=== PATIENT | female | born 1985 | race Caucasian/White ===

== ENCOUNTER → 2019-09-09 12:31 | Outpatient (CLI) | payer MEDICAID, SELFPAY ==
--- NOTE | 2019-09-09 12:35 | US_ITS ---
STUDY: SECOND AND THIRD TRIMESTER OBSTETRICAL ULTRASOUND REASON FOR EXAM: Female, 34 years old ANATOMY LMP: April 22, 2019. TECHNIQUE: Transabdominal TECHNICAL QUALITY: Adequate. PRIOR ULTRASOUND: None. FINDINGS: There is a single intrauterine fetus. The fetus is in a breech presentation. There is demonstrated cardiac activity with a heart rate of 152 bpm. There is a normal amniotic fluid volume. The largest amniotic fluid pocket measures 3.9 cm x 7.9 cm. The amniotic fluid index (TOM) is normal. The placenta is anterior in location and is not low lying. There are Grade 1 placental changes. The cervix measures 5.5 cm in length. The adnexal regions are not visualized. BIOMETRY: BPD: 4.58 cm: 19 weeks, 5 days HC: 17.42 cm: 19 weeks, 6 days AC: 14.88 cm: 20 weeks, 0 days FL: 3.23 cm: 20 weeks, 0 days CI: 74.8% FL/BPD: 70.5% FL/HC: FL/AC: 21.7% HC/AC: 1.17 age by current US: 20 weeks, 0 days. JOCELYNN by current US: January 27, 2020. Estimated weight: 331 grams, +/- 49 grams, 57.5 %. Age by LMP: 20 weeks, 0 days. JOCELYNN by LMP: January 27, 2020. ANATOMY: Gender: Male Cranium: Normal lateral ventricles. Normal choroid plexus. Normal cerebellum. Normal cisterna magna. Normal face, nose and lips. Chest: Normal 4-chamber heart. Abdomen/Pelvis: Normal diaphragm. Normal stomach. Normal abdominal wall. Normal cord insertion. Normal 3 vessel cord. Normal kidneys. Normal bladder. Spine: Normal cervical spine. Normal thoracic spine. Normal lumbar spine. Normal sacrum. Extremities: Normal bilateral upper extremities. Normal bilateral lower extremities. US/OB Anatomy Scan IMPRESSION: A single live intrauterine gestation with a mean gestational age of 20 weeks. Electronically Signed: Alli Parham, at 14:47 EDT , Service support ,
== END ==
PROVIDERS: Referring Provider Obstetrics & Gynecology; Visit Provider Obstetrics & Gynecology
DX: Z34.90 Encounter for supervision of normal pregnancy, unspecified, unspecified trimester (principal)
CPT/HCPCS: 76805

== ENCOUNTER → 2019-09-11 12:58 | Outpatient (CLI) | payer MEDICAID, SELFPAY ==
[2019-09-11 11:59] VITALS: BMI 25.5
== END ==
PROVIDERS: Referring Provider Obstetrics & Gynecology; Visit Provider Obstetrics & Gynecology
DX: O09.522 Supervision of elderly multigravida, second trimester (principal); Z3A.00 Weeks of gestation of pregnancy not specified
CPT/HCPCS: 36415

== ENCOUNTER → 2019-11-03 09:54 | Outpatient (CLI) | payer MEDICAID, SELFPAY ==
[2019-11-03 09:28] VITALS: BMI 25.5
[2019-11-03 10:41] LABS: Absolute Lymphocyte Count 3.08 X10^3/uL (0.83-4.51); Absolute Neutrophil Count 7.2 X10^3/uL (2.0-7.7); Basophil# 0.02 X10^3/uL; Basophil% 0.2 % (0-1); Eosinophil# 0.13 X10^3/uL; Eosinophils% 1.2 % (0-5); Hematocrit 35.6 % (37-47); Hemoglobin 11.6 g/dL (12.0-15.0); Lymphocyte # 3.08 X10^3/ul (4.0); Lymphocyte % 27.7 % (19-41); Mean Corp Hgb Conc 32.6 g/dL (32-36); Mean Corpuscular Hgb 31.1 pg (27.0-32.0); Mean Corpuscular Volume 95.4 fL (81-99); Mean Platelet Vol. 11.7 fl (6.2-12.0); Monocyte# 0.64 X10^3/uL; Monocyte% 5.8 % (0-10); NRBC Flagged by Analyzer 0 % (0-5); Neutrophil # 7.19 X10^3/uL (2.7-7.7); Neutrophil % 64.5 % (47-70); Platelet Count 181 K/mm3 (150-450); RBC Distribution Width SD 45.2 fl (35.1-43.9); Red Blood Count 3.73 M/mm3 (4.2-5.4); White Blood Count 11.1 K/mm3 (4.4-11.0)
[2019-11-03 11:34] LABS: Glucose Challenge Gest 1H 50g 119 mg/dL (70-140)
[2019-11-03 16:44] LABS: Chlamydia Trachomatis by PCR Negative (Negative); Neisserai gonorrhoeae by PCR Negative (Negative); Probe Check PASS; Sample Adequacy Control PASS; Specimen Processing Control PASS
[2019-11-06 02:24] LABS: Rapid Plasmin Reagin (RPR) NONREACTIVE (NONREACTIVE)
== END ==
PROVIDERS: Referring Provider Obstetrics & Gynecology; Visit Provider Obstetrics & Gynecology
DX: O09.529 Supervision of elderly multigravida, unspecified trimester (principal); Z11.3 Encounter for screening for infections with a predominantly sexual mode of transmission; Z86.79 Personal history of other diseases of the circulatory system; Z3A.00 Weeks of gestation of pregnancy not specified
CPT/HCPCS: 36415; 82950; 85025; 86592; 87491; 87591

== ENCOUNTER → 2020-01-02 10:29 | Outpatient (CLI) | payer MEDICAID, SELFPAY ==
[2019-12-26 09:21] VITALS: BMI 25.5
[2020-01-02 09:35] VITALS: BMI 25.5
--- NOTE | 2020-01-02 10:30 | US_ITS ---
STUDY: SECOND AND THIRD TRIMESTER OBSTETRICAL ULTRASOUND REASON FOR EXAM: Female, 34 years old GROWTH LMP: 04/22/2019. TECHNIQUE: Transabdominal TECHNICAL QUALITY: Adequate. PRIOR ULTRASOUND: Comparison is made with prior study dated 09/09/2019. FINDINGS: There is a single intrauterine fetus. The fetus is in a cephalic presentation. There is demonstrated cardiac activity with a heart rate of 129 bpm. There is a normal amniotic fluid volume. The largest amniotic fluid pocket measures 5.1 cm. The amniotic fluid index (TOM) is 12.0 cm. The placenta is anterior in location and is not low lying. There are Grade 1 placental changes. The cervix measures 3.6 cm in length. The adnexal regions are not visualized. BIOMETRY: BPD: 9.1 cm: 37 weeks, 0 days HC: 33.4 cm: 38 weeks, 2 days AC: 33.1 cm: 37 weeks, 1 days FL: 7.02 cm: 37 weeks, 4 days CI: 81% FL/BPD: 77% FL/HC: FL/AC: 21% HC/AC: 1.01 age by current US: 37 weeks, 1 days. JOCELYNN by current US: 01/22/2020. Estimated weight: 3053 grams, +/- 446 grams, 66 %. age by prior US: 36 weeks, 3 days. JOCELYNN by prior US: 01/27/2020. Age by LMP: 36 weeks, 3 days. JOCELYNN by LMP: 01/27/2020. US/OB Limited With Biometrics IMPRESSION: Single live intrauterine gestation with a mean gestational age of 36 weeks and 3 days. The measurements obtained today fall within the normal expected range. Electronically Signed: Alli Parham, at 12:26 EDT , Service support ,
== END ==
PROVIDERS: Referring Provider Obstetrics & Gynecology; Visit Provider Obstetrics & Gynecology
DX: O09.90 Supervision of high risk pregnancy, unspecified, unspecified trimester (principal); O09.529 Supervision of elderly multigravida, unspecified trimester; Z3A.36 36 weeks gestation of pregnancy
CPT/HCPCS: 76816; 87081

== ENCOUNTER 2020-01-11 13:05 | Outpatient (CLI) | payer MEDICAID, SELFPAY ==
[2020-01-09 10:17] VITALS: BMI 25.5
[2020-01-11 13:19] VITALS: BP 119/65; PULSE 88; TEMP 36.8; O2SAT 99
[2020-01-11 13:34] VITALS: BMI 30.7
--- NOTE | 2020-01-11 13:34 | RAD_ITS ---
STUDY: X-RAY CHEST REASON FOR EXAM: Female, 34 years old. SHORT OF BREATH, PRE ECLAMPSIA TECHNIQUE: PA and lateral views of the chest. COMPARISON: None. FINDINGS: The lungs are clear and expanded. There is no demonstrated pleural abnormality. Normal size heart. Normal mediastinum and kia. Normal visualized pulmonary arteries. Normal visualized aortic arch and descending thoracic aorta. Normal visualized thoracic spine. Normal visualized ribs, clavicles, and shoulders. There is no demonstrated abnormality of the visualized soft tissue structures of the upper abdomen. RAD/Chest PA and Lateral IMPRESSION: Normal x-ray examination of the chest. Electronically Signed: Ruddy Simon MD ([place]) at 14:32 EDT , Service support ,
[2020-01-11 13:45] VITALS: BP 108/72; PULSE 86
[2020-01-11 13:55] VITALS: BP 100/63; PULSE 83
[2020-01-11 14:02] LABS: Hematocrit 35.9 % (37-47); Hemoglobin 11.8 g/dL (12.0-15.0); Mean Corp Hgb Conc 32.9 g/dL (32-36); Mean Corpuscular Hgb 31.3 pg (27.0-32.0); Mean Corpuscular Volume 95.2 fL (81-99); Mean Platelet Vol. 12.2 fl (6.2-12.0); Platelet Count 169 K/mm3 (150-450); RBC Distribution Width CV 13.3 % (11.6-14.6); RBC Distribution Width SD 45.5 fl (35.1-43.9); Red Blood Count 3.77 M/mm3 (4.2-5.4); White Blood Count 12.4 K/mm3 (4.4-11.0)
[2020-01-11 14:10] LABS: Prothrombin Time (Protime)PT. 12.4 SECONDS (11.7-14.9)
[2020-01-11 14:11] LABS: Partial Thromboplast Time 26.3 Seconds (24.1-36.2)
[2020-01-11 14:17] LABS: BNP,B-Type NATRIURETIC PEPTIDE 52.3 pg/mL (0-100)
[2020-01-11 14:18] LABS: AST(SGOT) 13 U/L (15-37); Alanine Aminotransfer ALT/SGPT 13 U/L (13-56); Creatinine, Serum 0.74 mg/dL (0.55-1.02); EST Glomerular Filtration Rate 94 mL/min (>60); Est Glom Filt Rate - Afr Amer 114 mL/min (>60); Estimated Creatinine Clearance 91.63 ml/min; Uric Acid 4.4 mg/dL (2.6-6.0)
[2020-01-11 14:19] LABS: ALB/GLOB Ratio 0.8 RATIO (0.9-2.4); AST(SGOT) 14 U/L (15-37); Alanine Aminotransfer ALT/SGPT 12 U/L (13-56); Albumin, Serum 2.8 g/dL (3.2-5.0); Alkaline Phosphatase 121 U/L (45-117); Anion Gap 4 (5-15); BUN 10 mg/dL (7-18); BUN/Creat Ratio 13.8 RATIO (10-20); Calcium,Total 8.8 mg/dL (8.5-10.1); Chloride 108 mmol/L (98-107); Creatinine, Serum 0.72 mg/dL (0.55-1.02); EST Glomerular Filtration Rate 97 mL/min (>60); Est Glom Filt Rate - Afr Amer 117 mL/min (>60); Estimated Creatinine Clearance 94.17 ml/min; Globulin 3.6 g/dL (2.2-4.2); Glucose 95 mg/dL (74-106); LDH 153 U/L (84-246); Protein, Total 6.4 g/dL (6.4-8.2); Sodium Level 139 mmol/L (136-145)
[2020-01-11 14:21] LABS: Creatinine, Urine (random) < 13.00 mg/dL (NO RANGE EST.); Protein, Urine (Random) < 6.0 mg/dL (<11.9)
[2020-01-11 14:32] VITALS: BP 110/71; PULSE 81
--- NOTE | 2020-01-11 14:33 | OB.TRI.HP_ITS ---
- Problem List (1) Shortness of breath during Status: Acute (2) History of congestive heart failure in adulthood Status: Acute Comment: around first delivery, questionable. s/p cardio consult and MFM consult. undiagnosed preeclampsia and then went into congestive heart failure after delivery 06/21/08 History of Present Illness Reason For Visit: RULE OUT LABOR Date of Service: 01/11/20 Final JOCELYNN: 01/27/20 Final JOCELYNN Source: LMP Gestational age: 37 Weeks and 5 Days History of Present Illness: 34yo at 37 weeks who presents for elevated BP at home, shortness of breath, and tachycardia. She has a history of HFrEF due to preeclampsia in her first . No complications with her last or thus far this . Reports that for the last 24 hours, she has noticed shortness of breath and tachycardia upon awakening. Also reports mild headache and occasionally seeing s pots in her vision. She feels like this is somewhat similar to how she felt in her first . No shortness of breath, lightheadedness, blurred vision, chest pain, RUQ/epigastric pain currently. Endorses very mild headache that she reports is not so severe that she would take medications. Allergies No Known Allergies Allergy (Verified 01/09/20 10:16) - Pertinent Past Medical History Medical History: Past Medical History (Last Reviewed 01/09/20 @ 10:16 by Kesha Montgomery) Epilepsy Surgical History: Past Surgical History (Last Reviewed 01/09/20 @ 10:16 by Kesha Montgomery) delivery delivered History of tonsillectomy Laboratory Studies: Laboratory Tests 01/11/20 01/11/20 01/11/20 Range/Units 14:00 13:45 13:45 WBC (4.4-11.0) K/mm3 RBC (4.2-5.4) M/mm3 Hgb (12.0-15.0) g/dL Hct (37-47) % MCV (81-99) fL MCH (27.0-32.0) pg MCHC (32-36) g/dL RDW Std Deviation (35.1-43.9) fl RDW Coeff of Camilo (11.6-14.6) % Plt Count (150-450) K/mm3 MPV (6.2-12.0) fl PT (11.7-14.9) SECONDS INR APTT (24.1-36.2) Seconds Sodium 139 (136-145) mmol/L Potassium 4.0 (3.5-5.1) mmol/L Chloride 108 H (98-107) mmol/L Carbon Dioxide 27.0 (21.0-32.0) mmol/L Anion Gap 4 L (5-15) BUN 10 (7-18) mg/dL Creatinine 0.72 (0.55-1.02) mg/dL Estim Creat Clear Calc 94.17 ml/min Est GFR (MDRD) Af Amer 117 (>60) mL/min Est GFR (MDRD) Non-Af 97 (>60) mL/min BUN/Creatinine Ratio 13.8 (10-20) RATIO Glucose 95 (74-106) mg/dL Uric Acid (2.6-6.0) mg/dL Calcium 8.8 (8.5-10.1) mg/dL Total Bilirubin 0.40 (0.20-1.00) mg/dL AST 14 L (15-37) U/L ALT 12 L (13-56) U/L Alkaline Phosphatase 121 H (45-117) U/L Lactate Dehydrogenase 153 (84-246) U/L B-Natriuretic Peptide 52.3 (0-100) pg/mL Total Protein 6.4 (6.4-8.2) g/dL Albumin 2.8 L (3.2-5.0) g/dL Globulin 3.6 (2.2-4.2) g/dL Albumin/Globulin Ratio 0.8 L (0.9-2.4) RATIO U Random Total Protein < 6.0 (<11.9) mg/dL Urine Creatinine < 13.00 (NO RANGE EST.) mg/dL Protein/Creatinin Ratio TNP 01/11/20 01/11/20 01/11/20 Range/Units 13:45 13:45 13:45 WBC 12.4 H (4.4-11.0) K/mm3 RBC 3.77 L (4.2-5.4) M/mm3 Hgb 11.8 L (12.0-15.0) g/dL Hct 35.9 L (37-47) % MCV 95.2 (81-99) fL MCH 31.3 (27.0-32.0) pg MCHC 32.9 (32-36) g/dL RDW Std Deviation 45.5 H (35.1-43.9) fl RDW Coeff of Camilo 13.3 (11.6-14.6) % Plt Count 169 (150-450) K/mm3 MPV 12.2 H (6.2-12.0) fl PT 12.4 (11.7-14.9) SECONDS INR 1.0 APTT 26.3 (24.1-36.2) Seconds Sodium (136-145) mmol/L Potassium (3.5-5.1) mmol/L Chloride (98-107) mmol/L Carbon Dioxide (21.0-32.0) mmol/L Anion Gap (5-15) BUN (7-18) mg/dL Creatinine 0.74 (0.55-1.02) mg/dL Estim Creat Clear Calc 91.63 ml/min Est GFR (MDRD) Af Amer 114 (>60) mL/min Est GFR (MDRD) Non-Af 94 (>60) mL/min BUN/Creatinine Ratio (10-20) RATIO Glucose (74-106) mg/dL Uric Acid 4.4 (2.6-6.0) mg/dL Calcium (8.5-10.1) mg/dL Total Bilirubin (0.20-1.00) mg/dL AST 13 L (15-37) U/L ALT 13 (13-56) U/L Alkaline Phosphatase (45-117) U/L Lactate Dehydrogenase (84-246) U/L B-Natriuretic Peptide (0-100) pg/mL Total Protein (6.4-8.2) g/dL Albumin (3.2-5.0) g/dL Globulin (2.2-4.2) g/dL Albumin/Globulin Ratio (0.9-2.4) RATIO U Random Total Protein (<11.9) mg/dL Urine Creatinine (NO RANGE EST.) mg/dL Protein/Creatinin Ratio Review of Systems Constitutional: Denies: Fever, Weight Change Eyes: Denies: Blurred vision Cardiovascular: Reports: Palpitations. Denies: Chest Pain, Chest Pressure, Edema Respiratory: Denies: Pleuritic Pain, Shortness of Breath Gastrointestinal: Denies: Abdominal Pain, Nausea, Vomiting Gynecological: Denies: Vaginal bleeding, Vaginal discharge Neurological: Reports: Headaches. Denies: Blurred vision Physical Exam Vitals: Vital Signs Temp Pulse BP Pulse Ox 98.3 F 81 110/71 99 01/11/20 13:19 01/11/20 14:32 01/11/20 14:32 01/11/20 13:19 General: Alert, Oriented x3, Cooperative, No apparent distress, Well developed, Well nourished HEENT: Atraumatic, PERRLA, EOMI, Normocephalic Cardiovascular: Regular rate, Regular Rhythm, Normal S1, Normal S2 Lungs: Clear to auscultation, Normal air movement, No rhonchi, No wheeze, No rales Abdomen: Soft, Non Tender, Gravid, Appropriate for Gestational Age Neurological: Cranial nerves II-XII grossly intact, Deep Tendon Reflexes 2+/4 and Symmetrical - no clonus, Neuro grossly intact Estimated gestational size: Appropriate for gestational size NST - FHR Rate Baby A Baseline: 150 Variability:: Moderate Accelerations:: 15 x 15 Decelerations:: None NST Reactive:: Yes FHR Category:: Category I Uterine Activity:: none Impression/Plan 34yo at 37 weeks presenting with shortness of breath, heart palpitations, and headaches 1. Shortness of breath/Elevated BPs - Patient with hx CHF and PreE after first delivery. Echo normal this - BPs elevated at home - normotensive throughout triage course. Pulse 90s. SpO2 99% on room air - Exam normal - no edema, lungs clear to auscultation, heart rate normal - PreE labs negative - CXR and BNP performed due to hx of CHF and pulmonary edema - no evidence of pulmonary edema and BNP normal - Urine protein so low unable to calculate P:C - Will discharge to home in stable condition with close outpatient follow-up Multi Select Codes - Visit Charges Office Visit/Consults: 69489 OV L3 Est - Urinary/Genital Urinary/Genital CPT Codes: 83400-86 non-stress test Interp
[2020-01-31 02:58] VITALS: BP 119/77; PULSE 87; TEMP 37.1; O2SAT 98
[2020-01-31 03:49] VITALS: BP 129/75; PULSE 80; TEMP 37.3
== END 2020-01-11 14:50 | disposition home or self-care (01) ==
LOC: WPOUT 13:14 → OBT 13:18
PROVIDERS: Visit Provider Obstetrics & Gynecology
DX: O26.893 Other specified pregnancy related conditions, third trimester (principal); R06.02 Shortness of breath; R03.0 Elevated blood-pressure reading, without diagnosis of hypertension; R51 Headache; R00.2 Palpitations; O09.523 Supervision of elderly multigravida, third trimester; Z3A.37 37 weeks gestation of pregnancy
CPT/HCPCS: 36415; 59025; 59050; 71046; 80053; 82565; 82570; 83615; 83880; 84156; 84450; 84460; 84550; 85027; 85610; 85730; 99218; G0378

== ENCOUNTER 2020-01-31 02:25 | Inpatient (IN) | payer MEDICAID, SELFPAY ==
[2020-01-23 10:52] VITALS: BMI 31.6
--- NOTE | 2020-01-30 12:00 | HP.PCM_ITS ---
- Problem List (1) 38 weeks gestation of Status: Acute Comment: COVID TESTING ORDERED 01/14/2020sc (2) History of pre-eclampsia in prior , currently Status: Acute Comment: low dose aspirin daily, 2x wkly BP check or daily if having BP cuff at home, wkly NST in our office (3) History of congestive heart failure in adulthood Status: Acute Comment: around first delivery, questionable. s/p cardio consult and MFM consult. undiagnosed preeclampsia and then went into congestive heart failure after delivery 06/21/08 (4) AMA (advanced maternal age) multigravida 35+ Status: Acute Comment: NIPT low risk. growth scan at 36 weeks (5) History of delivery Status: Acute Comment: plan RLTCS 02/01 at noon if no labor prior. previous cs x 2, NRFHTS. plan TOLAC, recommended epidural during labor to avoid tachycardia but desires minimal intervention (6) Epilepsy Status: Acute Comment: has been on meds in the past. she sees dr muller for this. declines meds this , last seizure august 31. encouraged close follow up (7) Supervision of high risk , antepartum Status: Acute Comment: PRR JOCELYNN 01/27/20 boy nathan Schmid SHARMIN (8) Status: Acute Qualifiers: Comment: nipt planned declined carrier and ntd. nl anatomy. NL growth 01/01 History and Physical Date of Admission: 01/30/20 Intake Vital Signs 01/30/20 Height 5 ft 4 in 01/30/20 Weight: 187 lb 8 oz 01/30/20 BMI 32.1 01/30/20 BP 110/62 Intake Visit Reasons: 40 WK OB/NST Freight Breaker Required: No Accompanied by: Allergies No Known Allergies Allergy (Verified 01/30/20 11:35) Medications Vits [Prenatabs FA] 1 tab PO DAILY 01/11/20 [History Confirmed 01/30/20] Last Menstral Period: 04/22/19 Zika: Zika virus screening: Negative : No PFSH PFSH Medical History Epilepsy (Acute) Surgical History delivery delivered (Acute) History of tonsillectomy (Acute) Family History Father Hypertension Social History (Updated 01/30/20 @ 11:[address] Antonia Jaquez MD) Smoking Status: Never smoker alcohol intake: never substance use type: does not use caffeine: Yes what type of physical activity do you participate in: weight training seatbelt use: always do you feel safe at home: Yes additional social history: SHARMIN- Cross fit Pregancy History 6 Elective abortions 0 Hx Para 2 Spontaneous abortions 3 Hx # Term Pregnancies 2 Ectopic pregnancies Hx # Pregnancies Multiple births # of living children 2 Past Pregnancies Del. Date Name GA/Weeks Outcome Route Bth Weight Infant Gen Labor Lgth Anesthesia Del Locatn Provider FOB Unknown 10/20/14 Kimberlee 39 live - full term 7lb 15.2 oz Female spinal [facility] Unknown 06/21/08 Nathan 40 live - full term 9lbs 5oz Male [address] [place] [address] Guerra Unknown 08/2007 Unknown 05/2007 Delivery Date: low transverse Brielle Lundberg Delivery Date: NRFHTs, csection scar? Antonia Jaquez Delivery Date: No notes to display Delivery Date: No notes to display HPI 40 WK OB/NST: Details: SAMMIE XAVIER is a 34 year old who presents for routine OB visit. If she has no spontaneous labor by sunday she is having a RLTCS. OB Visit JOCELYNN Calculator Estimated Delivery Date Method Current WG Current Estimate 01/27/20 LMP (Certain) 40w 3d Expected Delivery Route/Plan TOLAC patient counseled regarding risks/benefits of trial of labor versus repeat . ACOG and uptodate education given to patient. 70 % likelihood of success per calculator TOLAC consent form signed: 11/02 Labor Preferences- labor support person: SHARMIN pain management options preferred: minimal intervention, open to epidural cut cord/dad catch: yes : yes PP control planned: nfp condoms discussed possible routes of delivery and associated risks: [] special requests: [] Specific Issue/Plans flu vaccine: no tdap vaccine: given 11/02 rhogam: na LARC form signed: declined movement and labor precautions reviewed. Problem list reviewed and updated with the most current plan of care details and appropriate orders placed. Relevant counseling for the gestational age provided. Continue routine care and follow up unless otherwise noted in visit notes/problem list details Initial Weight: 131 lb Date EGA Weight BP Urine Prot Glucose FHR FuHt Pres Dilation Effaced St Visit Note 09/11/19 20w 2d 149 lb (+18 lb) 112/64 Negative Negative 135 21 RODERICK from [place], desires TOLAC. SM- no vb lof good fm no regular ctx 10/06/19 23w 6d 152 lb (+21 lb) 102/62 140 24 SM- SM- no vb lof good fm no regular ctx. no seizures. some swelling no shortness of breath. recommend cardio and mfm consult. 11/03/19 27w 6d 159 lb (+28 lb) 104/58 Negative 1000 g/dL 145 29 SM- signed tolac consent, no vb lof good fm no regular ctx. appt scheduled with cardio end of november, needs to make mfm appointment yet. SM- signed tolac consent, no vb lof good fm no regular ctx. appt scheduled with cardio end of november, needs to make mfm appointment yet. cbc gct tdap today 11/20/19 30w 2d 164 lb (+33 lb) 98/60 Negative Negative 140 30 SM- saw mfm no additional recommendations. plan TOLAC 12/05/19 32w 3d 169 lb 4 oz (+38 lb 4 oz) 102/60 Negative Negative 130 SM- reviewed MFM report. no vb lof good fm no regular ctx 12/18/19 34w 2d 170 lb 4 oz (+39 lb 4 oz) 100/62 120 GP - occasional contractions. Denies LOF, VB. DFM today, but NST reactive and movement increased in the office. 12/26/19 35w 3d 173 lb (+42 lb) 98/62 Negative Negative 130 SM nst only 01/02/20 36w 3d 176 lb 8 oz (+45 lb 8 oz) 110/70 Negative Negative 120 0 40 -3 GP - no LOF, VB, DFM. Irregular ctx. GBS today. Transverse on ultrasound today. 01/09/20 37w 3d 180 lb (+49 lb) 120/70 Negative Negative 130 37 Cephalic 0 40 -3 GP - No LOF, VB, DFM, ctx. Baby now feels cephalic - will verify with US next week. GP - No LOF, VB, DFM, ctx. Baby now feels cephalic - will verify with US next week. Discussed would not recommend expectant management after 41 weeks. 01/15/20 38w 2d 183 lb 6 oz (+52 lb 6 oz) 124/72 Negative Negative 130 Cephalic 0 SM- no vb lof good fm nor egular ctx 01/23/20 39w 3d 184 lb (+53 lb) 130/82 Negative Negative 130 Cephalic 0.5 SM- no vb lof good fm no regular ctx head feels less in the pelvis or engaged now. ACOG First Trimester First Trimester: Desire for , Alcohol, Tobacco Cessation, Illicit/Recreational Drug/Substance Use, Intimate Partner Violence, Barriers to care, Unstable Housing, Communication Barriers, Environmental/Work Hazards, Anticipated Course of Care, Toxoplasmosis Precations, Use of Any medications, Sexual activity, Exercise, Dental Care, Sauna/Hot tub use, Seat Belt use, Childbirth classes/Hospital facilities, , Travel, Indications for US and Screening for Aneuploidy Second Trimester Second Trimester: Signs and Symptoms of Labor, Selecting a care provider, Reproductive Life Planning, Care Planning, Tobacco Cessation, Depression/Anxiety and Intimate Partner Violence Third Trimester Third Trimester: Pain Management Plans, Labor support person(s), Immediate Larc, Movement Monitoring and Feeding Yes ; discussed Trial of Labor after Counseling or discussed Circumcision preference Diagnostics Diagnostics Diagnostics Glucose 1 Hr 50 gm 119 mg/dL (70-140) 11/03/19 Hgb 11.8 g/dL (12.0-15.0) L 01/11/20 Hct 35.9 % (37-47) L 01/11/20 RPR NONREACTIVE (NONREACTIVE) 11/03/19 Details: HIV: Urine Culture: Sequential Screen: NIPT Screen: ROS Const Reports system reviewed and no additional complaints, except as docu Card Reports system reviewed and no additional complaints, except as docu Resp Reports system reviewed and no additional complaints, except as docu GI Reports system reviewed and no additional complaints, except as docu, Reports nausea Reports system reviewed and no additional complaints, except as docu Musc Reports system reviewed and no additional complaints, except as docu Exam Const General: cooperative, healthy appearing, comfortable, anxious HENMT Head: normal to inspection Nose: external nose normal Face and sinus: normal facial exam Neck Neck: normal visual inspection, full ROM, no lymphadenopathy Thyroid: thyroid normal Chest Chest palpation & inspection: normal inspection of the chest Resp Effort & Inspection: normal respiratory effort GI Inspection: normal to inspection Palpation: soft, other (gravid uterus) Other: vertex and appropriate size for gestational age Other: Cervical Exam: 2cm nabothian cyst present anterior lip of cervix, .5/0/-4 Extrem General: pedal edema Office Procedures OB NST Non-Stress Test Indications for Monitoring: Yes Advanced maternal age Heart Rate Baseline: 130 Heart Rate Variability: moderate Movement: Present Heart Rate Accelerations: Present Decelerations: Absent Contractions: Absent Impression: Yes Reactive Non-Stress Test Category 1 Results POC Urinalysis 2 Dip (Clinic) Office Urine Glucose Negative Last Edit by Michelle Lundberg on 01/30/20 11:38 Office Urine Protein Negative Last Edit by Michelle Lundberg on 01/30/20 11:38 Assessment & Plan Problems 1. Z34.90 nipt planned declined carrier and ntd. nl anatomy. NL growth 01/01 2. Supervision of high risk , antepartum O09.90 PRR JOCELYNN 01/27/20 boy tree curiel, nathan SHARMIN 3. Epilepsy G40.909 has been on meds in the past. she sees dr muller for this. declines meds this , last seizure august 31. encouraged close follow up 4. History of delivery Z98.891 plan RLTCS 02/01 at noon if no labor prior. previous cs x 2, NRFHTS. plan TOLAC, recommended epidural during labor to avoid tachycardia but desires minimal intervention 5. History of congestive heart failure in adulthood Z86.79 around first delivery, questionable. s/p cardio consult and MFM consult. undiagnosed preeclampsia and then went into congestive heart failure after delivery 06/21/08 6. History of pre-eclampsia in prior , currently O09.299 low dose aspirin daily, 2x wkly BP check or daily if having BP cuff at home, wkly NST in our office 7. 38 weeks gestation of Z3A.38 COVID TESTING ORDERED 01/14/2020sc 8. AMA (advanced maternal age) multigravida 35+ O09.529 NIPT low risk. growth scan at 36 weeks Plan if no spontaneous labor plan RLTCS Orders Orders: OB NST Today O09.90 POC Urinalysis 2 Dip (Clinic) Today Coding Level of Care Code OB Routine Diagnoses Z34.90 Supervision of high risk , antepartum O09.90 Epilepsy G40.909 History of delivery Z98.891 History of congestive heart failure in adulthood Z86.79 History of pre-eclampsia in prior , currently O09.299 38 weeks gestation of Z3A.38 AMA (advanced maternal age) multigravida 35+ O09.529 Additional Codes Non-Stress Test (35863)
[2020-01-31] VITALS (28 sets, daily range): BP systolic 90–129; BP diastolic 42–83; PULSE 73–115; RESP 14–18; TEMP 36.6–37.7; O2SAT 96–100
[2020-01-31] MEDS: 0.9% Saline Lock 10 ML Syringe IV (03:00)
[2020-01-31 03:19] LABS: Absolute Lymphocyte Count 2.64 X10^3/uL (0.83-4.51); Absolute Neutrophil Count 9.9 X10^3/uL (2.0-7.7); Basophil# 0.03 X10^3/uL; Basophil% 0.2 % (0-1); Eosinophil# 0.09 X10^3/uL; Eosinophils% 0.6 % (0-5); Hematocrit 35.6 % (37-47); Hemoglobin 11.5 g/dL (12.0-15.0); Lymphocyte # 2.64 X10^3/ul (4.0); Lymphocyte % 19.1 % (19-41); Mean Corp Hgb Conc 32.3 g/dL (32-36); Mean Corpuscular Hgb 30.8 pg (27.0-32.0); Mean Corpuscular Volume 95.4 fL (81-99); Mean Platelet Vol. 12.2 fl (6.2-12.0); Monocyte# 1.09 X10^3/uL; Monocyte% 7.9 % (0-10); NRBC Flagged by Analyzer 0 % (0-5); Neutrophil # 9.91 X10^3/uL (2.7-7.7); Neutrophil % 71.6 % (47-70); Platelet Count 172 K/mm3 (150-450); RBC Distribution Width CV 13.2 % (11.6-14.6); RBC Distribution Width SD 46.1 fl (35.1-43.9); Red Blood Count 3.73 M/mm3 (4.2-5.4); White Blood Count 13.9 K/mm3 (4.4-11.0)
[2020-01-31] MEDS: Lactated Ringers 1,000 ML 50 ML IV (04:40)
[2020-01-31] MEDS: fentaNYL 100 MCG/2 ML Ampul IV (05:09)
[2020-01-31] MEDS: Lactated Ringers 500 ML 999 ML IV (11:49)
[2020-01-31] MEDS: Lactated Ringers 1,000 ML 200 ML IV (14:29)
[2020-01-31] MEDS: fentaNYL-bupivacaine (epidural) 100 ML BAG EPIDURAL (14:29)
[2020-01-31] MEDS: Oxytocin 30 units/NS 500 ml 30 UNITS/500 ML IV.SOLN IV (15:20)
--- NOTE | 2020-01-31 17:55 | PCM.PN.BLA ---
Progress Note heart tones category 1. Discussed with patient and her that she is only made 1 cm of cervical change in the last 10 hours. Contractions have been spaced apart and patient previously declined Pitocin but has been on it for the last 2 hours. We will continue to increase Pitocin and if no significant cervical change upon repeat cervical exam in 2 hours consider proceeding with repeat low transverse . Patient and her requesting expectant management with Pitocin versus immediate . STROKE Vital Signs/Narrative: Vital Signs Temp Pulse BP Pulse Ox 01/31/20 17:25 105 H 119/83 H 100 01/31/20 16:52 98.5 F 87 110/69 01/31/20 16:25 99.5 F H 97 100 01/31/20 16:24 90 111/66 01/31/20 16:04 103 H 100 01/31/20 15:59 105 H 100 01/31/20 15:53 98.8 F 73 128/72 H 01/31/20 15:29 99.5 F H 104 H 129/66 H 100 01/31/20 14:04 99.4 F H 91 110/61 99
--- NOTE | 2020-01-31 18:30 | OP.PCM_ITS ---
Problem List (1) 38 weeks gestation of Status: Acute Comment: COVID TESTING ORDERED 01/14/2020sc (2) History of pre-eclampsia in prior , currently Status: Acute Comment: low dose aspirin daily, 2x wkly BP check or daily if having BP cuff at home, wkly NST in our office (3) History of congestive heart failure in adulthood Status: Acute Comment: around first delivery, questionable. s/p cardio consult and MFM consult. undiagnosed preeclampsia and then went into congestive heart failure after delivery 06/21/08 (4) AMA (advanced maternal age) multigravida 35+ Status: Acute Comment: NIPT low risk. growth scan at 36 weeks (5) History of delivery Status: Acute Comment: plan RLTCS 02/01 at noon if no labor prior. previous cs x 2, NRFHTS. plan TOLAC, recommended epidural during labor to avoid tachycardia but desires minimal intervention (6) Epilepsy Status: Acute Comment: has been on meds in the past. she sees dr muller for this. declines meds this , last seizure august 31. encouraged close follow up (7) Supervision of high risk , antepartum Status: Acute Comment: PRR JOCELYNN 01/27/20 boy tree PC moisés, ivanna HSARMIN (8) Status: Acute Qualifiers: Comment: nipt planned declined carrier and ntd. nl anatomy. 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 Patient has a history of 2 previous C- sections 1 for nonreassuring heart tones on 1 for an elective repeat. Patient desired a trial of labor after and therefore was managed expectantly. After patient had stalled at 5 cm for 5 hours she got an epidural and then agreed to Pitocin augmentation which after almost 4 hours of Pitocin patient was still stalled at approximately 6 cm. She also developed a category 2 tracing with minimal to moderate variability and recurrent variable and late decelerations. Decision was made to proceed with a repeat low transverse C- section. Patient and her were agreeable. I discussed with the patient that I believe this is due to CPD as there is an arrest of descent at -1 station and arrest of dilation at 6 cm. Estimated weight is significant and she has a history of a 9-1/2 pound baby. Epidural anesthesia was dosed for adequate anesthesia for and patient taken back to the OR. The patient was placed in the dorsal supine position with leftward tilt. Patient was prepped and draped in the normal sterile fashion. Pfannenstiel skin incision was made with the scalpel and carried through to the underlying layer of fascia with the scalpel. Fascia was nicked in the midline and the incision extended laterally. The rectus bellies were dissected off superiorly and inferiorly with out complication both sharply and bluntly. The peritoneum was entered digitally. The incision was stretched and a low transverse uterine incision was made with the scalpel. The 's head was delivered atraumatically followed by the anterior and posterior shoulders without complication the rest of the delivered. The cord was clamped and cut and the was handed off to awaiting nurse. The placenta was delivered spontaneously immediately following and was noted to be intact and have a three-vessel cord. The uterus was exteriorized cleared of all clots and debris, and the incision was closed in a single layer closure using #1 Monocryl. The ovaries and fallopian tubes were noted to be within normal limits. The uterus was returned to the maternal abdomen and gutters were cleared of all clots and debris. The peritoneum was closed with 3-0 Monocryl in a running fashion. Gloves were changed prior to fascial closure. Fascia was closed with 0 PDS in a running fashion. Subcutaneous tissue was copiously irrigated and the skin was closed with 3-0 Monocryl in a subcuticular fashion. Mepilex dressing was applied without complication. Patient was taken to recovery in stable condition. It was discussed with the patient that based on the clinical information obtained during this encounter, combined with her history, at this time I would recommend cesareans for future deliveries if further pregnancies are desired. Amniotic Membrane Rupture Type: Spontaneous Amniotic Fluid Description: Clear Placenta Disposition: [facility] Drain: Gandhi to straight drain Cord Vessel Description: 3 Vessels Esitmated Blood Loss (ml): 700 Infant Gender: Male Delayed cord clamping: Yes Antibiotic Given: Ancef 2 grams IV x1, Zithromax 500 mg/5 mL X1 Pt instructed on risks of surgery: Bleeding, Anesthesia Risks, Infection, Need for Future C-Sections, Injury to surrounding structure(s) including bowel and bladder Complications: None - Admit VTE Documentation VTE Present on Admission: No VTE Mechan Device Prophylaxis: SCD's Multi Select Codes - Urinary/Genital Urinary/Genital CPT Codes: 09014 delivery+PP Care(SALMA), 23485 failed
[2020-01-31] MEDS: Sodium Citrate/Citric Acid 30 ML UDC PO (18:33)
[2020-01-31] MEDS: Cefazolin 2 GM in 0.9% Normal Saline 100 ML IV (18:36)
[2020-01-31] MEDS: Oxytocin 30 units/NS 500 ml 30 UNITS/500 ML IV.SOLN 167 UNITS IV (19:53)
[2020-01-31] MEDS: Acetaminophen 500 MG Tablet 1000 MG PO (21:31)
[2020-01-31] MEDS: Lactated Ringers 1,000 ML 100 ML IV (22:58)
[2020-02-01] VITALS (18 sets, daily range): BP systolic 91–108; BP diastolic 48–55; PULSE 81–107; RESP 16–18; TEMP 36.3–37.2; O2SAT 96–99
[2020-02-01] MEDS: Ketorolac 30 MG/ML Syringe IV ×4 (01:29→18:55)
[2020-02-01] MEDS: 0.9% Saline Lock 10 ML Syringe IV ×3 (01:29→13:23)
[2020-02-01] MEDS: Acetaminophen 500 MG Tablet 1000 MG PO ×4 (04:01→21:54)
[2020-02-01 05:34] LABS: Hematocrit 26.5 % (37-47); Hemoglobin 8.9 g/dL (12.0-15.0); Mean Corp Hgb Conc 33.6 g/dL (32-36); Mean Corpuscular Hgb 31.4 pg (27.0-32.0); Mean Corpuscular Volume 93.6 fL (81-99); Mean Platelet Vol. 12.1 fl (6.2-12.0); Platelet Count 133 K/mm3 (150-450); RBC Distribution Width CV 13.4 % (11.6-14.6); RBC Distribution Width SD 46.4 fl (35.1-43.9); Red Blood Count 2.83 M/mm3 (4.2-5.4)
[2020-02-01] MEDS: Senna/Docusate Sodium 1 Tablet PO (09:13)
[2020-02-01] MEDS: Prenatal Vits Tablet 1 TABLET PO (09:13)
--- NOTE | 2020-02-01 14:37 | DCINST_ITS ---
Discharge Diet: No Restrictions Discharge Activity: May Not Drive - for 2 weeks, May not drive while taking narcotic pain medications., May Shower, May Take a Tub Bath - in 7 days May resume sexual activity in: 4-6 weeks Lifting Restrictions: 20 pounds Additional Activity Instructions:: Nothing in the vagina for 4-6 weeks. You may return to work/school in 6 weeks. Call your doctor if your incision/area has: Continuous Slow Oozing, Sudden Increased Bleeding, Increased Pain/ Swelling, Increased Redness, Foul Smelling Discharge Call your doctor if you observe: Fever of 101 or Higher, Using more than one pad per hour - for 2 hours Suture Line Care: Avoid Pulling/Pushing, Avoid Pinching/Bending Cleanse incision/area with: Keep Dressing Clean & Dry Additional Instructions: If you experience any of the following, contact your healthcare provider. * Bleeding that soaks a pad every hour for 2 hours * Fever 100.4 or higher * Unrelieved incision or abdominal pain * Swelling, redness, discharge or bleeding from your incision or episiotomy site * Your incision begins to separate * Problems urinating (including inability to urinate or burning while urinating). * Visual changes * Severe headache * Flu-like symptoms * Pain or redness in one of both of your breasts * Pain, warmth, tenderness or swelling in your legs, especially the calf area * Frequent nausea and vomiting * Symptoms of depression or anxiety If you experience any of the following, call 911 or go to the nearest Emergency Room. * Chest pain * Problems breathing * Seizure activity * Partial or complete paralysis of a body part, slurred speech, weakness or drooping of the face, or a sudden inability to walk or hold your balance Allergies/Adverse Reactions: Allergies No Known Allergies Allergy (Verified 01/31/20 03:23) Medications to take at Discharge Vits [Prenatabs FA] 1 tab PO DAILY 01/11/20 Naproxen [Naprosyn] 250 - 500 mg PO Q8H PRN PRN #30 tab 02/01/20 Oxycodone HCl/Acetaminophen [Percocet 5-325] 1 - 2 tablet PO Q6H PRN PRN 7 Days #15 tablet 02/01/20 The following prescriptions were given: Naproxen [Naprosyn] 250 - 500 mg PO Q8H PRN PRN #30 tab PRN Reason: MILD PAIN Transmission Status: Pending to [facility] Oxycodone HCl/Acetaminophen [Percocet 5-325] 1 - 2 tablet PO Q6H PRN PRN 7 Days #15 tablet PRN Reason: Pain Transmission Status: Sent to [facility] Follow-Up: Call to make an appointment with your doctor for an incision check in 1-2 weeks. You will also need a 6 week post- follow up appointment. Test results from this visit will be discussed in further detail at your follow- up appointment, if applicable. Please Follow Up With: Antonia Jaquez MD - Call to make an appointment for an incision check in 1-2 [phone] When: You will need a post- check in 6 weeks. Primary Care Physician: Care Physician,No Primary [Primary Care Provider] -
--- NOTE | 2020-02-01 14:37 | PCM.PN.OB ---
Patient Problems: Active and Suspected Problems (Last Reviewed 01/30/20 @ 11:35 by Michelle Lundberg) 38 weeks gestation of (Acute) COVID TESTING ORDERED 01/14/2020sc History of pre-eclampsia in prior , currently (Acute) low dose aspirin daily, 2x wkly BP check or daily if having BP cuff at home, wkly NST in our office History of congestive heart failure in adulthood (Acute) around first delivery, questionable. s/p cardio consult and MFM consult. undiagnosed preeclampsia and then went into congestive heart failure after delivery 06/21/08 AMA (advanced maternal age) multigravida 35+ (Acute) NIPT low risk. growth scan at 36 weeks History of delivery (Acute) plan RLTCS 02/01 at noon if no labor prior. previous cs x 2, NRFHTS. plan TOLAC, recommended epidural during labor to avoid tachycardia but desires minimal intervention Epilepsy (Acute) has been on meds in the past. she sees dr muller for this. declines meds this , last seizure august 31. encouraged close follow up Supervision of high risk , antepartum (Acute) PRR JOCELYNN 01/27/20 boy ivanna Schmid SHARMIN (Acute) nipt planned declined carrier and ntd. nl anatomy. NL growth 01/01 Subjective: Patient doing well without complaints. Tolerating PO. Ambulating and voiding without difficulty. breast feeding well. Denies chest pain, shortness of breath, calf pain/swelling, fevers, chills, lightheadedness. - Physical Exam Vitals/I&O's: Vital Signs Temp Pulse Resp BP Pulse Ox 97.4 F L 81 16 91/54 L 99 02/01/20 13:21 02/01/20 13:21 02/01/20 13:21 02/01/20 13:21 02/01/20 13:21 Oxygen Delivery Method Room Air Weight: 187 lb 6.287 oz Body Mass Index (BMI) 33.2 Intake and Output for Last 24 Hours 01/30/20 01/31/20 02/01/20 23:59 23:59 23:59 Intake Total 3722.50 / 3722.50 1501.67 / 1501.67 Output Total 750 / 750 2800 / 2800 Balance 2972.50 / 2972.50 -1298.33 / -1298.33 Laboratory Results 02/01/20 05:20: WBC 18.0 H, RBC 2.83 L, Hgb 8.9 L, Hct 26.5 L, MCV 93.6, MCH 31.4, MCHC 33.6, RDW Std Deviation 46.4 H, RDW Coeff of Camilo 13.4, Plt Count 133 L, MPV 12.1 H Current Medications Acetaminophen (Acetaminophen 500 Mg Tablet) 1,000 mg PO Q6H [facility] Last Admin: 02/01/20 09:13 Dose: 1,000 mg Documented by: Bisacodyl (Bisacodyl 10 Mg Suppository) 10 mg RECTAL UD PRN PRN Reason: If no BM Diphenhydramine HCl (Diphenhydramine 25 Mg Capsule) 25 mg PO Q6H PRN PRN PRN Reason: ITCHING Stop: 02/01/20 20:07 Hydrocortisone (Hydrocortisone 2.5% Crm) 1 applic TOPICAL TID PRN PRN; Protocol PRN Reason: Discomfort Lactated Ringer's () 1,000 mls @ 100 mls/hr IV .Q10H [facility] Last Infusion: 02/01/20 07:59 Dose: Infused Documented by: Ketorolac Tromethamine (Ketorolac 30 Mg/Ml Syringe) 30 mg IV Q6H [facility] Stop: 02/01/20 19:31 Last Admin: 02/01/20 13:22 Dose: 30 mg Documented by: Methylergonovine Maleate (Methylergonovine 0.2 Mg/Ml Ampul) 0.2 mg IM X1 PRN PRN Reason: Uterine Atony Nalbuphine HCl (Nalbuphine 10 Mg/Ml Ampul) 5 mg IV Q3H PRN PRN PRN Reason: ITCHING Stop: 02/01/20 20:07 Naloxone HCl (Naloxone 0.4 Mg/Ml Syringe) 0.02 mg IV Q1M PRN PRN Reason: RR <10 and pt unresponsive Naproxen (Naproxen 250 Mg Tablet) 500 mg PO Q8H [facility] Ondansetron HCl (Ondansetron 4 Mg/2 Ml Vial) 4 mg IV Q4H PRN PRN PRN Reason: Nausea Oxycodone HCl (Oxycodone 5 Mg Tablet) 5 - 10 mg PO Q4H PRN PRN PRN Reason: Pain Score 4-10 Multivit/Folic Acid/Iron ( Vits Tablet) 1 tablet PO DAILY [facility] Last Admin: 02/01/20 09:13 Dose: 1 tablet Documented by: Prochlorperazine Edisylate (Prochlorperazine 10 Mg/2 Ml Vial) 10 mg IV Q6H PRN PRN PRN Reason: NAUSEA Senna/Docusate Sodium (Senna/Docusate Sodium 1 Tablet) 1 - 2 tablet PO DAILY [facility] Last Admin: 02/01/20 09:13 Dose: 1 tablet Documented by: Simethicone (Simethicone 80 Mg Tablet) 80 mg PO PCHS PRN PRN Reason: Indigestion/stomach pain Last Admin: 02/01/20 13:55 Dose: 80 mg Documented by: Sodium Chloride (0.9% Saline Lock 10 Ml Syringe) 5 - 15 ml IV UD PRN PRN Reason: SALINE FLUSH Last Admin: 02/01/20 13:23 Dose: 10 ml Documented by: Medical Necessity - Tobacco Use Smoking Status: Never smoker Assessment/Plan All Active Problems (Last Reviewed 01/30/20 @ 11:35 by Michelle Lundberg) 38 weeks gestation of (Acute) History of pre-eclampsia in prior , currently (Acute) History of congestive heart failure in adulthood (Acute) AMA (advanced maternal age) multigravida 35+ (Acute) History of delivery (Acute) Epilepsy (Acute) Supervision of high risk , antepartum (Acute) (Acute) Shortness of breath during (Resolved) Supervision of normal (Resolved) s/p LTCS PPD # 1 1. routine post care 2. breast feeding- support given 3. rh positive 4. rubella immune
[2020-02-02] MEDS: Naproxen 250 MG Tablet 500 MG PO (01:30)
[2020-02-02 01:33] VITALS: BP 103/56; PULSE 88; RESP 18; TEMP 36.2; O2SAT 96
[2020-02-02] MEDS: Acetaminophen 500 MG Tablet 1000 MG PO ×2 (04:02→09:47)
--- NOTE | 2020-02-02 07:54 | PCM.PN.OB ---
Patient Problems: Active and Suspected Problems (Last Reviewed 01/30/20 @ 11:35 by Michelle Lundberg) 38 weeks gestation of (Acute) COVID TESTING ORDERED 01/14/2020sc History of pre-eclampsia in prior , currently (Acute) low dose aspirin daily, 2x wkly BP check or daily if having BP cuff at home, wkly NST in our office History of congestive heart failure in adulthood (Acute) around first delivery, questionable. s/p cardio consult and MFM consult. undiagnosed preeclampsia and then went into congestive heart failure after delivery 06/21/08 AMA (advanced maternal age) multigravida 35+ (Acute) NIPT low risk. growth scan at 36 weeks History of delivery (Acute) plan RLTCS 02/01 at noon if no labor prior. previous cs x 2, NRFHTS. plan TOLAC, recommended epidural during labor to avoid tachycardia but desires minimal intervention Epilepsy (Acute) has been on meds in the past. she sees dr muller for this. declines meds this , last seizure august 31. encouraged close follow up Supervision of high risk , antepartum (Acute) PRR JOCELYNN 01/27/20 boy ivanna Schmid SHARMIN (Acute) nipt planned declined carrier and ntd. nl anatomy. NL growth 01/01 Subjective: Patient doing well without complaints. Tolerating PO. Ambulating and voiding without difficulty. well. Denies chest pain, shortness of breath, calf pain/swelling, fevers, chills, lightheadedness. - Physical Exam Vitals/I&O's: Vital Signs Temp Pulse Resp BP Pulse Ox 97.1 F L 88 18 103/56 L 96 02/02/20 01:33 02/02/20 01:33 02/02/20 01:33 02/02/20 01:33 02/02/20 01:33 Oxygen Delivery Method Room Air Weight: 187 lb 6.287 oz Body Mass Index (BMI) 33.2 Intake and Output for Last 24 Hours 01/31/20 02/01/20 02/02/20 23:59 23:59 23:59 Intake Total 3722.50 / 3722.50 1501.67 / 1501.67 Output Total 750 / 750 2800 / 2800 Balance 2972.50 / 2972.50 -1298.33 / -1298.33 General: Alert, Oriented x3 Abdomen: Soft, Non-Distended, - - FF below U. Dressing dry and intact, old drainage only. Appropriately tender Current Medications Acetaminophen (Acetaminophen 500 Mg Tablet) 1,000 mg PO Q6H [facility] Last Admin: 02/02/20 04:02 Dose: 1,000 mg Documented by: Bisacodyl (Bisacodyl 10 Mg Suppository) 10 mg RECTAL UD PRN PRN Reason: If no BM Hydrocortisone (Hydrocortisone 2.5% Crm) 1 applic TOPICAL TID PRN PRN; Protocol PRN Reason: Discomfort Methylergonovine Maleate (Methylergonovine 0.2 Mg/Ml Ampul) 0.2 mg IM X1 PRN PRN Reason: Uterine Atony Naloxone HCl (Naloxone 0.4 Mg/Ml Syringe) 0.02 mg IV Q1M PRN PRN Reason: RR <10 and pt unresponsive Naproxen (Naproxen 250 Mg Tablet) 500 mg PO Q8H [facility] Last Admin: 02/02/20 01:30 Dose: 500 mg Documented by: Ondansetron HCl (Ondansetron 4 Mg/2 Ml Vial) 4 mg IV Q4H PRN PRN PRN Reason: Nausea Oxycodone HCl (Oxycodone 5 Mg Tablet) 5 - 10 mg PO Q4H PRN PRN PRN Reason: Pain Score 4-10 Multivit/Folic Acid/Iron ( Vits Tablet) 1 tablet PO DAILY [facility] Last Admin: 02/01/20 09:13 Dose: 1 tablet Documented by: Prochlorperazine Edisylate (Prochlorperazine 10 Mg/2 Ml Vial) 10 mg IV Q6H PRN PRN PRN Reason: NAUSEA Senna/Docusate Sodium (Senna/Docusate Sodium 1 Tablet) 1 - 2 tablet PO DAILY [facility] Last Admin: 02/01/20 09:13 Dose: 1 tablet Documented by: Simethicone (Simethicone 80 Mg Tablet) 80 mg PO PCHS PRN PRN Reason: Indigestion/stomach pain Last Admin: 02/01/20 13:55 Dose: 80 mg Documented by: Sodium Chloride (0.9% Saline Lock 10 Ml Syringe) 5 - 15 ml IV UD PRN PRN Reason: SALINE FLUSH Last Admin: 10/18/20 13:23 Dose: 10 ml Documented by: Medical Necessity - Tobacco Use Smoking Status: Never smoker Assessment/Plan All Active Problems (Last Reviewed 01/30/20 @ 11:35 by Michelle Lundberg) 38 weeks gestation of (Acute) History of pre-eclampsia in prior , currently (Acute) History of congestive heart failure in adulthood (Acute) AMA (advanced maternal age) multigravida 35+ (Acute) History of delivery (Acute) Epilepsy (Acute) Supervision of high risk , antepartum (Acute) (Acute) Shortness of breath during (Resolved) Supervision of normal (Resolved) s/p LTCS PPD # 2 1. routine post care 2. breast feeding- support given 3. rh positive 4. rubella immune 5. home today
[2020-02-02 08:15] VITALS: BP 90/53; PULSE 86; RESP 16; TEMP 36.6; O2SAT 96
[2020-02-02] MEDS: Senna/Docusate Sodium 1 Tablet PO (09:47)
[2020-02-02] MEDS: Prenatal Vits Tablet 1 TABLET PO (09:49)
== END 2020-02-02 11:50 | disposition home or self-care (01) | DRG 540 ==
PROVIDERS: Admitting Provider Obstetrics & Gynecology; Visit Provider Obstetrics & Gynecology
DX: O34.211 Maternal care for low transverse scar from previous cesarean delivery (principal); O65.9 Obstructed labor due to maternal pelvic abnormality, unspecified; O62.1 Secondary uterine inertia; O66.41 Failed attempted vaginal birth after previous cesarean delivery; O76 Abnormality in fetal heart rate and rhythm complicating labor and delivery; O99.354 Diseases of the nervous system complicating childbirth; G40.909 Epilepsy, unspecified, not intractable, without status epilepticus; Z87.59 Personal history of other complications of pregnancy, childbirth and the puerperium; Z3A.39 39 weeks gestation of pregnancy; Z37.0 Single live birth
CPT/HCPCS: 59025; 59050; 85025; 85027; 86850; 86900; 86901; 99218; J7120; A4216; G0378

== ENCOUNTER 2020-02-03 09:23 | Observation (INO) | payer MEDICAID, SELFPAY ==
[2020-01-31 03:00] VITALS: BMI 33.2
[2020-02-03] VITALS (11 sets, daily range): BP systolic 120–152; BP diastolic 68–86; PULSE 97–117; RESP 16–20; TEMP 36.4–37.3; O2SAT 98–100; BMI 31.4; BMI 30.4
--- NOTE | 2020-02-03 09:40 | EKG12_ITS ---
Test Reason : Blood Pressure : / mmHG Vent. Rate : 087 BPM Atrial Rate : 087 BPM P-R Int : 156 ms QRS Dur : 072 ms QT Int : 342 ms P-R-T Axes : 023 054 035 degrees QTc Int : 411 ms Normal sinus rhythm Normal ECG Confirmed by SHAY ONTIVEROS, MARJORIE ([id number]), line tender flakeboard NICK BACH ([id number]) on 02/09/2020 11:47:55 AM Referred By: LIAM Confirmed By:MARJORIE DAY MD
--- NOTE | 2020-02-03 09:41 | ED.VIS.GEN ---
History of Present Illness Chief Complaint: Shortness of Breath Informant: Patient Narrative: 34-year-old female presenting with leg swelling and shortness of breath. She states she just had a 4 days ago. She was discharged home yesterday. She noted that she had more shortness of breath and her legs are swollen. Her abdomen feels bloated as well. Patient states that after her prior she went into CHF due to preeclampsia. She states she had to be admitted to the hospital at that time. Patient has no history of DVT/PE. Not having any chest pain or palpitations. Patient states he has a history of epilepsy and has been off Keppra for over a year. She has not any breakthrough seizures. Prior similar symptoms: Yes Recent Illness/Hospitalization: Yes - Past Medical History (1) Epilepsy Status: Chronic Comment: has been on meds in the past. she sees dr muller for this. declines meds this , last seizure august 31. encouraged close follow up Past Medical History - Allergies and Home Meds Allergies/Adverse Reactions: Allergies No Known Allergies Allergy (Verified 02/03/20 09:24) Prior records reviewed: Yes Past Medical History: - - Epilepsy Surgical History: - - Lives: Spouse/ Significant Other Smoking Status: Never smoker Alcohol: None Drugs: None - Family History Maternal Family History: Family History (Last Reviewed 01/30/20 @ 11:35 by Michelle Lundberg) Father Hypertension Review of Systems General: Denies: Chills, Fever, Sweats Eyes: Denies: Visual changes - bilaterally, Diplopia ENT: Denies: Rhinorrhea, Sore throat Cardiovascular: Denies: Chest pain, Palpitations Respiratory: Reports: Dyspnea Gastrointestinal: Reports: Abdominal pain Musculoskeletal: Reports: Swelling, Extremity Pain. Denies: Back pain Skin: Reports: - - Status post . Dressings clean dry and intact.. Denies: Rash, Abscess Neurological: Denies: Headache, Weakness Physical Exam Vital Signs/Narrative: Vital Signs Temp Pulse Resp BP Pulse Ox 02/03/20 09:27 98 F 103 H 20 H 137/76 H 98 02/03/20 09:24 98 F 103 H 20 H 137/76 H 98 General: Well nourished, No Acute Distress Head: Normocephalic, Atraumatic Eyes: Perrl, EOMI ENT: Moist mucous membranes Cardiovascular: Regular rate, Regular rhythm Respiratory: No distress, CTA bilaterally Abdomen: Soft, Nondistended, - - Slight bloating of the lower abdomen. Abdomen is nonperitoneal. Incision sites are clean dry and intact. Extremities: Tenderness, Edema Skin: Normal color, No rash Neurological: Alert, Oriented x3 Psychological: Normal affect, Normal Mood Diagnostic/Tx/Re-eval Clinical Impression(s) from Imaging Studies Chest X-Ray 02/03/20 10:25 IMPRESSION: Mild degree of left basilar atelectasis and blunting of the left costophrenic angle. Electronically Signed: Alli Dione, at 10:44 EDT , Service support , Chest CTA 02/03/20 10:59 IMPRESSION: Small left pleural effusion with left basilar atelectasis. Minimal increased markings at the right lung base. Electronically Signed: Alli Dione, at 12:02 EDT , Service support , Laboratory Data 02/03/20 02/03/20 02/03/20 10:17 10:17 10:17 WBC 14.7 H RBC 2.68 L Hgb 8.3 L Hct 25.7 L MCV 95.9 MCH 31.0 MCHC 32.3 RDW Std Deviation 49.1 H RDW Coeff of Camilo 14.0 Plt Count 177 MPV 10.9 Immature Gran % (Auto) 1.000 H Neut % (Auto) 76.6 H Lymph % (Auto) 13.5 L [place] % (Auto) 5.9 Eos % (Auto) 2.9 Baso % (Auto) 0.1 Absolute Neuts (auto) 11.3 H Absolute Lymphs (auto) 1.98 Nucleated RBC % 0 Sodium 142 Potassium 3.6 Chloride 108 H Carbon Dioxide 28.0 Anion Gap 6 BUN 15 Creatinine 0.74 Estim Creat Clear Calc 91.63 Est GFR (MDRD) Af Amer 114 Est GFR (MDRD) Non-Af 94 BUN/Creatinine Ratio 20.2 H Glucose 82 Calcium 9.0 Magnesium 1.8 Total Bilirubin Direct Bilirubin AST ALT Alkaline Phosphatase Troponin I < 0.015 B-Natriuretic Peptide 275.3 H Total Protein Albumin Globulin 02/03/20 10:17 WBC RBC Hgb Hct MCV MCH MCHC RDW Std Deviation RDW Coeff of Camilo Plt Count MPV Immature Gran % (Auto) Neut % (Auto) Lymph % (Auto) [place] % (Auto) Eos % (Auto) Baso % (Auto) Absolute Neuts (auto) Absolute Lymphs (auto) Nucleated RBC % Sodium Potassium Chloride Carbon Dioxide Anion Gap BUN Creatinine Estim Creat Clear Calc Est GFR (MDRD) Af Amer Est GFR (MDRD) Non-Af BUN/Creatinine Ratio Glucose Calcium Magnesium Total Bilirubin 0.60 Direct Bilirubin 0.38 H AST 83 H ALT 43 Alkaline Phosphatase 291 H Troponin I B-Natriuretic Peptide Total Protein 5.5 L Albumin 2.0 L Globulin 3.5 - Rhythm Strip Rhythm Strip: Sinus Rhythm Rate: 87 - EKG Initial EKG Interpretation: Sinus Rhythm, No Acute Injury Pattern - Medical Decision Making She does not have a cough or congestion. No loss of taste or smell. Denies any vaginal complaints. Patient presents with lower extremity swelling bilaterally as well as some shortness of breath. She is concerned that she will be going into heart failure again if she did after her previous . She stated that it came on rapidly after her last . Today her BNP is elevated. She has a small left pleural effusion. She does have lower extremity edema as well. Given the patient's symptoms I believe she needs to be admitted for observation. She will be admitted to the OB service due to possible development of preeclampsia as a source. ED Disposition - Plan for ED Patient: Disposition: Acute Care Hospital [facility]
[2020-02-03 10:22] LABS: Absolute Lymphocyte Count 1.98 X10^3/uL (0.83-4.51); Absolute Neutrophil Count 11.3 X10^3/uL (2.0-7.7); Basophil# 0.02 X10^3/uL; Basophil% 0.1 % (0-1); Eosinophil# 0.42 X10^3/uL; Eosinophils% 2.9 % (0-5); Hematocrit 25.7 % (37-47); Hemoglobin 8.3 g/dL (12.0-15.0); Lymphocyte # 1.98 X10^3/ul (4.0); Lymphocyte % 13.5 % (19-41); Mean Corp Hgb Conc 32.3 g/dL (32-36); Mean Corpuscular Volume 95.9 fL (81-99); Mean Platelet Vol. 10.9 fl (6.2-12.0); Monocyte# 0.87 X10^3/uL; Monocyte% 5.9 % (0-10); NRBC Flagged by Analyzer 0 % (0-5); Neutrophil # 11.25 X10^3/uL (2.7-7.7); Neutrophil % 76.6 % (47-70); Platelet Count 177 K/mm3 (150-450); RBC Distribution Width SD 49.1 fl (35.1-43.9); Red Blood Count 2.68 M/mm3 (4.2-5.4); White Blood Count 14.7 K/mm3 (4.4-11.0)
--- NOTE | 2020-02-03 10:25 | RAD_ITS ---
STUDY: X-RAY CHEST REASON FOR EXAM: Female, 34 years old. 3 days post , legs swelling, unable to urinate, hx of post CHF, no SOB or pain TECHNIQUE: Single AP portable view of the chest. COMPARISON: Comparison is made with prior study dated 01/11/2020. FINDINGS: EKG electrodes are seen. Mild degree of increased markings at the left lung base suggestive of left basilar atelectasis. Blunting of the left costophrenic angle. Normal size heart. Normal mediastinum and kia. Normal visualized pulmonary arteries. Normal visualized aortic arch and descending thoracic aorta. Normal visualized thoracic spine. Normal visualized ribs, clavicles, and shoulders. There is no demonstrated abnormality of the visualized soft tissue structures of the upper abdomen. RAD/Chest 1 View (Portable) IMPRESSION: Mild degree of left basilar atelectasis and blunting of the left costophrenic angle. Electronically Signed: Alli Parham, at 10:44 EDT , Service support ,
[2020-02-03 10:39] LABS: Anion Gap 6 (5-15); BUN 15 mg/dL (7-18); BUN/Creat Ratio 20.2 RATIO (10-20); Chloride 108 mmol/L (98-107); Creatinine, Serum 0.74 mg/dL (0.55-1.02); EST Glomerular Filtration Rate 94 mL/min (>60); Est Glom Filt Rate - Afr Amer 114 mL/min (>60); Estimated Creatinine Clearance 91.63 ml/min; Glucose 82 mg/dL (74-106); Magnesium 1.8 mg/dL (1.6-2.6); Potassium 3.6 mmol/L (3.5-5.1); Sodium Level 142 mmol/L (136-145)
--- NOTE | 2020-02-03 10:59 | CT_ITS ---
STUDY: CTA CHEST REASON FOR EXAM: Female, 34 years old. SOB, 3 days post , leg swelling, elevated WBC. Hx pre-eclampsia and post- CHF (2009). RADIATION DOSAGE (If Supplied By Facility): CTDIvol = ( 10.32 ) mGy, DLP = ( 378.31 ) mGycm TECHNIQUE: The examination was performed with the intravenous administration of IV 100ML ISOVUE 370. Post-processing of the angiographic images was performed, with multiplanar reformation and 3D reconstruction. Individualized dose optimization techniques were used for this CT. COMPARISON: Comparison is made with prior radiograph done earlier in the day. FINDINGS: Normal enhancement of the main pulmonary artery and right and left pulmonary arteries. Normal enhancement of the bilateral peripheral pulmonary arteries. There is no demonstrated pulmonary embolism. Normal thoracic aorta and visualized great vessels. There is no demonstrated aortic dissection. Normal heart and pericardium. Normal mediastinum. Normal hilar regions. Normal visualized trachea and bronchi. The lungs are well expanded. Small left pleural effusion with left basilar atelectasis. Minimal increased markings at the right lung base. Normal chest wall structures. Normal osseous structures. Normal visualized upper abdomen. CT/CTA Chest W/WO Contrast IMPRESSION: Small left pleural effusion with left basilar atelectasis. Minimal increased markings at the right lung base. Electronically Signed: Alli Parham, at 12:02 EDT , Service support ,
[2020-02-03 11:32] LABS: BNP,B-Type NATRIURETIC PEPTIDE 275.3 pg/mL (0-100)
[2020-02-03] MEDS: Furosemide 40 MG/4 ML Vial IV ×2 (12:56→18:06)
[2020-02-03 13:17] LABS: AST(SGOT) 83 U/L (15-37); Alanine Aminotransfer ALT/SGPT 43 U/L (13-56); Alkaline Phosphatase 291 U/L (45-117); Bilirubin, Direct 0.38 mg/dL (0.00-0.30); Globulin 3.5 g/dL (2.2-4.2); Protein, Total 5.5 g/dL (6.4-8.2)
[2020-02-03 13:36] LABS: Mucous, Urine 0 SEEN /hpf (<or=2+)
[2020-02-03 13:37] LABS: Color, Urine Red (Yellow); Glucose, Dipstick Normal (Normal); Ketone-Dipstick Negative (Negative); Leukocyte Esterase-Dipstick 500 /ul (Negative); Nitrite-Dipstick Negative (Negative); Occult Blood-Urine 250 /ul (Negative); Protein-Dipstick 30 mg/dl (Negative); Specific Gravity, Urine 1.005 (1.002-1.030); Urine Bilirubin Dipstick Negative (Negative); Urine Clarity Cloudy (Clear); Urine Urobilinogen Normal (Normal)
[2020-02-03 13:43] LABS: Bacteria RARE /hpf (None Seen); Red Blood Cells-Urine 25-50 SEEN /hpf (0-5); Squamous Epithelial Cells - UA 5-10 SEEN /hpf (5-10); White Blood Cells 25-50 SEEN /hpf (0-5)
--- NOTE | 2020-02-03 14:06 | PCM.HP.STD ---
Problem List (1) 38 weeks gestation of Status: Acute Comment: COVID TESTING ORDERED 01/14/2020sc (2) History of pre-eclampsia in prior , currently Status: Acute Comment: low dose aspirin daily, 2x wkly BP check or daily if having BP cuff at home, wkly NST in our office (3) History of congestive heart failure in adulthood Status: Acute Comment: around first delivery, questionable. s/p cardio consult and MFM consult. undiagnosed preeclampsia and then went into congestive heart failure after delivery 06/21/08 (4) AMA (advanced maternal age) multigravida 35+ Status: Acute Comment: NIPT low risk. growth scan at 36 weeks (5) History of delivery Status: Acute Comment: plan RLTCS 02/01 at noon if no labor prior. previous cs x 2, NRFHTS. plan TOLAC, recommended epidural during labor to avoid tachycardia but desires minimal intervention (6) Epilepsy Status: Chronic Comment: has been on meds in the past. she sees dr muller for this. declines meds this , last seizure august 31. encouraged close follow up (7) Supervision of high risk , antepartum Status: Acute Comment: PRR JOCELYNN 01/27/20 boy tree curiel, ivanna SHARMIN (8) Status: Acute Qualifiers: Comment: nipt planned declined carrier and ntd. nl anatomy. NL growth 01/01 History of Present Illness Date of Admission: 02/03/20 Chief Complaint: shortness of breath and edema The patient is a 34 year old F Postop day 3 from repeat low transverse failed presents with edema and shortness of breath. 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 Blood pressures were within normal limits peripartum and upon evaluation today only an isolated blood pressure is elevated. Initial AST was mildly elevated but ALT is normal and platelets are within normal limits. She denies any headache or blurry vision. She denies any chest pain but has some shortness of breath particular with laying down. Edema has increased overnight to this morning. Past Medical History Past Medical History (Chronic Problems): Chronic Problems (Last Reviewed 01/30/20 @ 11:35 by Michelle Lundberg) Epilepsy (Chronic) has been on meds in the past. she sees dr muller for this. declines meds this , last seizure august 31. encouraged close follow up Medical History: Medical History (Last Reviewed 01/30/20 @ 11:35 by Michelle Lundberg) Epilepsy G40.909 Allergies No Known Allergies Allergy (Verified 02/03/20 09:24) Home Medications: Ambulatory Orders Medication Instructions Recorded Naproxen [Naprosyn] 250 - 500 mg PO Q8H PRN PRN #30 tab 02/01/20 Oxycodone HCl/Acetaminophen 1 - 2 tab PO Q6H PRN PRN 7 Days 02/01/20 [Percocet 5-325] #15 tab Ibuprofen 400 mg PO DAILY PRN PRN 02/03/20 Surgical History: Surgical History (Last Updated 02/02/20 @ 12:09 by Brielle Lundberg) delivery delivered O82 SROM failed 6 cm AOD RLTCS History of tonsillectomy Z90.89 Surgical History: - - Lives: Spouse/ Significant Other Smoking Status: Never smoker Alcohol: None Drugs: None - *Family History Maternal Family History: Family History (Last Reviewed 01/30/20 @ 11:35 by Michelle Lundberg) Father Hypertension VTE Information - Inpt Only VTE Present on Admission: No Patient Problems: Active and Suspected Problems (Last Reviewed 01/30/20 @ 11:35 by Michelle Lundberg) Abnormal cardiac enzyme level (Acute) CHF (congestive heart failure) (Acute) Interatrial cardiac shunt (Acute) 38 weeks gestation of (Acute) COVID TESTING ORDERED 01/14/2020sc History of pre-eclampsia in prior , currently (Acute) low dose aspirin daily, 2x wkly BP check or daily if having BP cuff at home, wkly NST in our office History of congestive heart failure in adulthood (Acute) around first delivery, questionable. s/p cardio consult and MFM consult. undiagnosed preeclampsia and then went into congestive heart failure after delivery 06/21/08 AMA (advanced maternal age) multigravida 35+ (Acute) NIPT low risk. growth scan at 36 weeks History of delivery (Acute) plan RLTCS 02/01 at noon if no labor prior. previous cs x 2, NRFHTS. plan TOLAC, recommended epidural during labor to avoid tachycardia but desires minimal intervention Supervision of high risk , antepartum (Acute) PRR JOCELYNN 01/27/20 boy ivanna Schmid SHARMIN (Acute) nipt planned declined carrier and ntd. nl anatomy. NL growth 01/01 - Physical Exam Vitals/I&O's: Vital Signs Temp Pulse Resp BP Pulse Ox 98.9 F 117 H 18 152/86 H 99 02/03/20 13:58 02/03/20 13:58 02/03/20 13:58 02/03/20 13:58 02/03/20 13:58 Oxygen Delivery Method Room Air Weight: 183 lb Body Mass Index (BMI) 31.4 Laboratory Results 02/03/20 10:17: WBC 14.7 H, RBC 2.68 L, Hgb 8.3 L, Hct 25.7 L, MCV 95.9, MCH 31.0, MCHC 32.3, RDW Std Deviation 49.1 H, RDW Coeff of Camilo 14.0, Plt Count 177, MPV 10.9, Immature Gran % (Auto) 1.000 H, Neut % (Auto) 76.6 H, Lymph % (Auto) 13.5 L, [place] % (Auto) 5.9, Eos % (Auto) 2.9, Baso % (Auto) 0.1, Absolute Neuts (auto) 11.3 H, Absolute Lymphs (auto) 1.98, Nucleated RBC % 0 02/03/20 10:17: Sodium 142, Potassium 3.6, Chloride 108 H, Carbon Dioxide 28.0, Anion Gap 6, BUN 15, Creatinine 0.74, Estim Creat Clear Calc 91.63, Est GFR (MDRD) Af Amer 114, Est GFR (MDRD) Non-Af 94, BUN/Creatinine Ratio 20.2 H, Glucose 82, Calcium 9.0, Magnesium 1.8, Troponin I < 0.015 02/03/20 10:17: B-Natriuretic Peptide 275.3 H 02/03/20 10:17: Total Bilirubin 0.60, Direct Bilirubin 0.38 H, AST 83 H, ALT 43, Alkaline Phosphatase 291 H, Total Protein 5.5 L, Albumin 2.0 L, Globulin 3.5 02/03/20 13:31: Urine Color Red, Urine Clarity Cloudy, Urine pH 7.0, Ur Specific [place] 1.005, Urine Protein 30 H, Urine Glucose (UA) Normal, Urine Ketones Negative, Urine Occult Blood 250 H, Urine Nitrite Negative, Urine Bilirubin Negative, Urine Urobilinogen Normal, Ur Leukocyte Esterase 500 H, Urine RBC 25-50 SEEN, Urine WBC 25-50 SEEN, Ur Squamous Epith Cells 5-10 SEEN, Urine Bacteria RARE, Urine Mucus 0 SEEN Current Medications Iopamidol (Contrast Allergy Safety Check) 0 ml IV X1 KEVAN Assessment/Plan All Active Problems (Last Reviewed 01/30/20 @ 11:35 by Michelle Lundberg) Abnormal cardiac enzyme level (Acute) CHF (congestive heart failure) (Acute) Interatrial cardiac shunt (Acute) 38 weeks gestation of (Acute) History of pre-eclampsia in prior , currently (Acute) History of congestive heart failure in adulthood (Acute) AMA (advanced maternal age) multigravida 35+ (Acute) History of delivery (Acute) Supervision of high risk , antepartum (Acute) (Acute) Shortness of breath during (Resolved) Supervision of normal (Resolved) 34-year-old postop day 3 from repeat 34-year-old postop day 3 repeat low transverse failed admitted for shortness of breath and edema, rule out cardiomyopathy Admit with medicine consultation, cardiology to read echocardiogram and consultation if indicated. Discussed with hospitalist and engraver rubber. Serial labs ordered. Elevated BNP and mildly elevated liver enzymes. Blood pressures normal to mildly elevated. Monitor for signs of preeclampsia. Recommend hypertensive protocol if blood pressures become severely elevated, but may need to avoid magnesium sulfate due to pulmonary edema risk. Breast-feeding?patient pumping.
--- NOTE | 2020-02-03 14:14 | ECHOD_ITS ---
Reason For Study: SOB Procedure This was a 2D Doppler, Color Flow transthoracic echocardiogram. Contrast injection was performed. No valsalva performed due to pain from recent . Exam performed portable in patient room. Left Ventricle Normal LV size. Left ventricular systolic function is normal. The estimated ejection fraction is 70 %. No evidence for diastolic dysfunction. No regional wall motion abnormalities noted. Right Ventricle Normal RV size. Normal systolic function. Atria Normal left atrium. Normal right atrium. Hypermobile atrial septum. Positive agitated saline contrast study for a right to left interatrial shunt potentially compatible with a small PFO versus ASD. Mitral Valve There is no mitral annular calcification. Normal mitral valve. Trivial mitral valve insufficiency. Tricuspid Valve Normal tricuspid valve. Trivial tricuspid valve insufficiency. Aortic Valve Trisinus/trileaflet aortic valve. Normal aortic valve. Pulmonic Valve The pulmonic valve is not well visualized. Trivial pulmonic valve insufficiency. Great Vessels Normal sized aortic root. Pericardium/Pleural No pericardial effusion. Medication Performed a rapid injection of agitated mix of 9 cc saline and 1cc air to assess for atrial septal defect. MMode/2D Measurements & Calculations LVIDd: 4.0 cm IVSd: 1.1 cm Ao root diam: 2.9 cm LVIDs: 2.2 cm LVPWd: 1.1 cm LA dimension: 3.1 cm RVDd: 3.6 cm FS: 44.6 % LAV(MOD-bp): 55.8 ml LA A4 area: 19.9 cm2 RA A4 area: 18.9 cm2 LAV(MOD-bp) Indexed: 30.0 ml/m2 LAV(MOD-sp2): 51.7 ml LAV(MOD-sp4): 52.2 ml Time Measurements MV dec time: 0.17 sec Doppler Measurements & Calculations MV E max duy: 128.1 cm/sec Lat Peak E' Duy: 24.4 cm/sec Med Peak E' Duy: 12.8 cm/sec MV A max duy: 97.7 cm/sec E/E' lat: 5.2 E/E' med: 10.0 MV E/A: 1.3 MV V2 max: 128.8 cm/sec MV P1/2t max duy: 126.8 cm/sec Ao V2 max: 182.3 cm/sec MV max P.6 mmHg MV P1/2t: 46.7 msec Ao max P.3 mmHg MV V2 mean: 71.7 cm/sec MV dec slope: 794.8 cm/sec2 MV mean P.5 mmHg MV V2 VTI: 21.8 cm MVA(P1/2t): 4.7 cm2 LV V1 max: 164.0 cm/sec PA V2 max: 123.3 cm/sec LV V1 max P.8 mmHg Interpretation Summary Left ventricular systolic function is normal. The estimated ejection fraction is 70 %. Trivial mitral valve insufficiency. Trivial tricuspid valve insufficiency. Trivial pulmonic valve insufficiency. No evidence for diastolic dysfunction. Hypermobile atrial septum. Positive agitated saline contrast study for a right to left interatrial shunt potentially compatible with a small PFO versus ASD. Ordering Physician: Antonia Jaquez Referring Physician: No PCP noted Performed By: Derek Nelson RCS
--- NOTE | 2020-02-03 15:01 | NURSING ---
Mother was in ER earlier and now admitted to PCU. Double breast pump provided to patient and any breastmilk collected will be stored in the breastmilk fridge in [facility]. support available and offered to Mother
[2020-02-03 15:10] LABS: Hematocrit 29.6 % (37-47); Hemoglobin 9.5 g/dL (12.0-15.0); Mean Corp Hgb Conc 32.1 g/dL (32-36); Mean Corpuscular Hgb 30.7 pg (27.0-32.0); Mean Corpuscular Volume 95.8 fL (81-99); Mean Platelet Vol. 11.3 fl (6.2-12.0); Platelet Count 241 K/mm3 (150-450); RBC Distribution Width CV 14.1 % (11.6-14.6); RBC Distribution Width SD 48.9 fl (35.1-43.9); Red Blood Count 3.09 M/mm3 (4.2-5.4); White Blood Count 15.5 K/mm3 (4.4-11.0)
--- NOTE | 2020-02-03 15:25 | CON.PCM_ITS ---
Reason for Consult Date of Consultation: 02/03/20 Reason for Consultation: shortness of breath, edema History of Present Illness: The patient is a 34 year old F who is 3 days post section, and is ; she was admitted via the ED on 02/03/2020 with a complaint of shortness of breath and generalised swelling. Patient was discharged from the hospital on 02/02/2020 after she had section for her third rpegnancy. was uncomplicated. However, after she got home, she realised taht her feet and abdomen were getting swollen. She also had shortness of breath and associated orthopnea. She denied any cough. She therefore decided to come in to the ED. Patient says her first 11 years ago was complicated by similar symptoms in the post CS phase. She had to go to the ED after she became short of breath and edematous then too, and says she was told she had pre eclampsia and heart failure. She was diuresed [facility], and says she had 2D echo done and extensive cardiac workup which was all negative back in 2008. Review of systems is otherwise negative. In [facility] ED, vitals showed temperature of 98.5F, with BP of 140/81, HI of 102 and RR of 18. She was saturating at 100% on room air. Chemistry showed AST elevated at 96 with ALT of 59 and ALP of 373. Total bilirubin was 0.5. BNP was 275.CBC showed hemoglobin of 8.3 initially but repeat showed hemoglobin of 9.5. WBC was around 15 and platelets were 241. Urinalysis showed rare bacteria and [address] of the chest showed small left pleural effusion with left basal atelectasis and minimal increased markings on the right lung base. She was admitted to the service of obstetrics and hospitalist service was consulted to help with medical management of heart failure. Past Medical History Past Medical History (Chronic Problems): Chronic Problems (Last Reviewed 01/30/20 @ 11:35 by Michelle Lundberg) Epilepsy (Chronic) has been on meds in the past. she sees dr muller for this. declines meds this , last seizure august 31. encouraged close follow up Medical History: Medical History (Last Reviewed 01/30/20 @ 11:35 by Michelle Lundberg) Epilepsy G40.909 Allergies No Known Allergies Allergy (Verified 02/03/20 09:24) Home Medications: Ambulatory Orders Medication Instructions Recorded Naproxen [Naprosyn] 250 - 500 mg PO Q8H PRN PRN #30 tab 02/01/20 Oxycodone HCl/Acetaminophen 1 - 2 tab PO Q6H PRN PRN 7 Days 02/01/20 [Percocet 5-325] #15 tab Ibuprofen 400 mg PO DAILY PRN PRN 02/03/20 Surgical History: Surgical History (Last Updated 02/02/20 @ 12:09 by Brielle Lundberg) delivery delivered O82 SROM failed 6 cm AOD RLTCS History of tonsillectomy Z90.89 Surgical History: - - Lives: Spouse/ Significant Other Smoking Status: Never smoker Alcohol: None Drugs: None - *Family History Maternal Family History: Family History (Last Reviewed 01/30/20 @ 11:35 by Michelle Lundberg) Father Hypertension Review of Systems Constitutional: Denies: Chills, Fever, Malaise, Weakness, Weight Change Eyes: Denies: Blurred vision HEENT: Denies: Head Aches, Sinus Congestion, Sinus Drainage Cardiovascular: Reports: Edema, Orthopnea, Paroxysmal Noc. Dyspnea. Denies: Chest Pain, Chest Pressure, Heaviness, Light Headedness, Palpitations, Syncope Respiratory: Reports: Shortness of Breath, Shortness of breath upon exertion. Denies: Cough, Shortness of breath at rest, Sputum production Gastrointestinal: Denies: Abdominal Pain, Nausea, Vomiting Genitourinary: Denies: Dysuria Musculoskeletal: Denies: Joint Pain, Joint Tenderness Skin: Denies: Rash, Wounds Neurological: Denies: Numbness, Tingling, Focal weakness Psychiatric: Denies: Anxiety, Depression, Homicidal Ideations, Suicidal Ideations Hematologic/ Lymphatic: Denies: Easy Bruising, Easy Bleeding Patient Problems: Active and Suspected Problems (Last Reviewed 01/30/20 @ 11:35 by Michelle Lundberg) 38 weeks gestation of (Acute) COVID TESTING ORDERED 01/14/2020sc History of pre-eclampsia in prior , currently (Acute) low dose aspirin daily, 2x wkly BP check or daily if having BP cuff at home, wkly NST in our office History of congestive heart failure in adulthood (Acute) around first delivery, questionable. s/p cardio consult and MFM consult. undiagnosed preeclampsia and then went into congestive heart failure after delivery 3/8/09 AMA (advanced maternal age) multigravida 35+ (Acute) NIPT low risk. growth scan at 36 weeks History of delivery (Acute) plan RLTCS 02/01 at noon if no labor prior. previous cs x 2, NRFHTS. plan TOLAC, recommended epidural during labor to avoid tachycardia but desires minimal intervention Supervision of high risk , antepartum (Acute) PRR JOCELYNN 01/27/20 boy tree ivanna Silva SHARMIN (Acute) nipt planned declined carrier and ntd. nl anatomy. NL growth 01/01 - Physical Exam Vitals/I&O's: Vital Signs Temp Pulse Resp BP Pulse Ox 98.9 F 100 18 152/86 H 99 02/03/20 13:58 02/03/20 14:34 02/03/20 13:58 02/03/20 13:58 02/03/20 13:58 Oxygen Delivery Method Room Air Weight: 177 lb 3.2 oz Body Mass Index (BMI) 30.4 General: Alert, Oriented x3, Cooperative, No apparent distress HEENT: Atraumatic, PERRLA, EOMI, Normocephalic Oral: Moist Mucosa Neck: Supple, No JVD, Negative Carotid Bruits Lungs: - - decreased breath sounds bibasally, with no wheezes or crackles. on room air. Cardiovascular: Normal S1, Normal S2, No murmurs, Tachycardic Abdomen: Bowel Sounds Present, Soft, Non Tender, - - abdomen mildly distended, no tenderness. Suprapubic dressing in place, over CS site Extremities: No clubbing, No cyanosis, Edema Skin: No rashes, No breakdown Musculoskeletal: No Tenderness to Palpation of Joints or Extremities Lymphatic: No Cervical, Supraclavicular, or Inguinal Adenopathy Neurological: Cranial nerves II-XII grossly intact, Neuro grossly intact, Motor Exam 5/5 strength throughout Psych/Mental Status: Normal Affect, Appropriate, Alert and oriented to time, place, person, mood and affect Laboratory Results 02/03/20 10:17: WBC 14.7 H, RBC 2.68 L, Hgb 8.3 L, Hct 25.7 L, MCV 95.9, MCH 31.0, MCHC 32.3, RDW Std Deviation 49.1 H, RDW Coeff of Camilo 14.0, Plt Count 177, MPV 10.9, Immature Gran % (Auto) 1.000 H, Neut % (Auto) 76.6 H, Lymph % (Auto) 13.5 L, [place] % (Auto) 5.9, Eos % (Auto) 2.9, Baso % (Auto) 0.1, Absolute Neuts (auto) 11.3 H, Absolute Lymphs (auto) 1.98, Nucleated RBC % 0 02/03/20 10:17: Sodium 142, Potassium 3.6, Chloride 108 H, Carbon Dioxide 28.0, Anion Gap 6, BUN 15, Creatinine 0.74, Estim Creat Clear Calc 91.63, Est GFR (MDRD) Af Amer 114, Est GFR (MDRD) Non-Af 94, BUN/Creatinine Ratio 20.2 H, Glucose 82, Calcium 9.0, Magnesium 1.8, Troponin I < 0.015 02/03/20 10:17: B-Natriuretic Peptide 275.3 H 02/03/20 10:17: Total Bilirubin 0.60, Direct Bilirubin 0.38 H, AST 83 H, ALT 43, Alkaline Phosphatase 291 H, Total Protein 5.5 L, Albumin 2.0 L, Globulin 3.5 02/03/20 13:31: Urine Color Red, Urine Clarity Cloudy, Urine pH 7.0, Ur Specific [place] 1.005, Urine Protein 30 H, Urine Glucose (UA) Normal, Urine Ketones Neg ative, Urine Occult Blood 250 H, Urine Nitrite Negative, Urine Bilirubin Negative, Urine Urobilinogen Normal, Ur Leukocyte Esterase 500 H, Urine RBC 25- 50 SEEN, Urine WBC 25-50 SEEN, Ur Squamous Epith Cells 5-10 SEEN, Urine Bacteria RARE, Urine Mucus 0 SEEN 02/03/20 15:01: WBC 15.5 H, RBC 3.09 L, Hgb 9.5 L, Hct 29.6 L, MCV 95.8, MCH 30.7, MCHC 32.1, RDW Std Deviation 48.9 H, RDW Coeff of Camilo 14.1, Plt Count 241, MPV 11.3 02/03/20 15:01: Sodium Pending, Potassium Pending, Chloride Pending, Carbon Dioxide Pending, Anion Gap Pending, BUN Pending, Creatinine Pending, Est GFR (MDRD) Af Amer Pending, Est GFR (MDRD) Non-Af Pending, BUN/Creatinine Ratio Pending, Glucose Pending, Calcium Pending, Total Bilirubin Pending, AST Pending, ALT Pending, Alkaline Phosphatase Pending, Total Protein Pending, Albumin Pending, TSH Pending Diagnostic Data Chest X-Ray 02/03/20 10:25 IMPRESSION: Mild degree of left basilar atelectasis and blunting of the left costophrenic angle. Electronically Signed: Alli Parham, at 10:44 EDT , Service support , Chest CTA 02/03/20 10:59 IMPRESSION: Small left pleural effusion with left basilar atelectasis. Minimal increased markings at the right lung base. Electronically Signed: Alli Parham, at 12:02 EDT , Service support , Current Medications Acetaminophen (Acetaminophen 325 Mg Tablet) 650 mg PO Q6H PRN PRN PRN Reason: Pain Score 1-10/Temp > 100.7 F Enoxaparin Sodium (Enoxaparin 40 Mg/0.4 Ml Syringe) 40 mg SC DAILY [facility] Nutritional Formula (Lactose Free) (Ensure Enlive 120 Ml Liquid) 120 ml PO 4X/DAY [facility] Ondansetron HCl (Ondansetron 4 Mg/2 Ml Vial) 4 mg IV Q8H PRN PRN PRN Reason: NAUSEA/VOMITING Oxycodone HCl (Oxycodone 5 Mg Tablet) 5 mg PO Q4H PRN PRN PRN Reason: Pain Score 4-5 Oxycodone HCl (Oxycodone 5 Mg Tablet) 10 mg PO Q4H PRN PRN PRN Reason: Pain Score 6-10 Promethazine HCl (Promethazine 25 Mg/Ml Syringe) 25 mg IM Q6H PRN PRN PRN Reason: Breakthrough nausea/vomiting Senna/Docusate Sodium (Senna/Docusate Sodium 1 Tablet) 2 tablet PO BID PRN PRN PRN Reason: Constipation Sodium Chloride (0.9% Saline Lock 10 Ml Syringe) 10 - 40 ml IV UD PRN PRN Reason: SALINE FLUSH Assessment/Plan All Active Problems (Last Reviewed 01/30/20 @ 11:35 by Michelle Lundberg) 38 weeks gestation of (Acute) History of pre-eclampsia in prior , currently (Acute) History of congestive heart failure in adulthood (Acute) AMA (advanced maternal age) multigravida 35+ (Acute) History of delivery (Acute) Supervision of high risk , antepartum (Acute) (Acute) Shortness of breath during (Resolved) Supervision of normal (Resolved) 34 y/o admitted with a complaint of shortness of breath #Acute post heart failure of unknown EF * Patient admitted to PCU with telemetry under obstetric service * Received a dose of IV Lasix in the ED. Continue IV Lasix 40 mg twice daily. Monitor intake and output. * Fluid restrictions thousand 500 cc daily. * 2D echo ordered. * Cardiology consulted. * # Post day 3 * delivered by CS 3 days ago. * # Elevated BP * BP yesterday prior to discharge from obstetrics service was ~110 systolic. * BP today is up in the 140 systolic. This may be due to fluid overload from heart failure. Will diurese and monitor blood pressure. * trend BP. Obstetrics doesnt think this is due to pre eclampsia * will monitor. * DVT prophylaxis; lovenox Thank you for the courtesy of the consult. We will continue to follow with you. please reach out to hospitalist service with any questions or concerns. Office Visits / Consults: [id number] IP Consult L4
[2020-02-03 15:44] LABS: ALB/GLOB Ratio 0.6 RATIO (0.9-2.4); AST(SGOT) 96 U/L (15-37); Alanine Aminotransfer ALT/SGPT 59 U/L (13-56); Albumin, Serum 2.3 g/dL (3.2-5.0); Alkaline Phosphatase 373 U/L (45-117); Anion Gap 8 (5-15); BUN 14 mg/dL (7-18); BUN/Creat Ratio 15.3 RATIO (10-20); Calcium,Total 9.1 mg/dL (8.5-10.1); Chloride 107 mmol/L (98-107); Creatinine, Serum 0.91 mg/dL (0.55-1.02); EST Glomerular Filtration Rate 74 mL/min (>60); Est Glom Filt Rate - Afr Amer 90 mL/min (>60); Estimated Creatinine Clearance 74.51 ml/min; Globulin 4.1 g/dL (2.2-4.2); Glucose 86 mg/dL (74-106); Potassium 3.5 mmol/L (3.5-5.1); Protein, Total 6.4 g/dL (6.4-8.2); Sodium Level 143 mmol/L (136-145); Thyroid Stim Hormone (TSH) 1.69 uIU/mL (0.358-3.74)
--- NOTE | 2020-02-03 17:40 | NURSING ---
Met with patient & her SHARMIN in PCU Rm 102. Pump was provided to mother upon entry to ER. Pumping is going well. Mother is expressing 25cc total. This is parents 3rd baby. They were discharged yesterday from to home and came to ER this morning at 9am for CHF symptoms. Mother has a previous history of this with their first child. Explained our services and support while they are here and after they go home. Mother plans to put baby to breast once he gets here to stay with parents on PCU. Mother is receiving 40mg of Lasix BID and we discussed the possibility of seeing a temporary decrease in her supply from this. If this happens, mother can do 10 minutes of pumping after each nursing session for extra stimulation for milk production. Mother and Father have no questions or concerns at this time. Will continue to monitor needs & offer education and support while admitted
[2020-02-03] MEDS: 0.9% Saline Lock 10 ML Syringe IV (18:06)
[2020-02-03] MEDS: oxyCODONE 5 MG Tablet PO ×2 (18:21→23:29)
--- NOTE | 2020-02-03 19:38 | CON.PCM_ITS ---
Problem List (1) Abnormal cardiac enzyme level Status: Acute (2) CHF (congestive heart failure) Status: Acute Qualifiers: Heart failure type: unspecified (3) History of pre-eclampsia in prior , currently Status: Acute Comment: low dose aspirin daily, 2x wkly BP check or daily if having BP cuff at home, wkly NST in our office (4) Interatrial cardiac shunt Status: Acute Reason for Consult Date of Consultation: 02/03/20 History of Present Illness: The patient is a 34 year [id number] white female who is referred for evaluation of an elevated BNP level, CHF , with a history of preeclampsia, now approximately 3 days (of her third child). She states that with her first child she had concerns of volume overload, was told she had CHF , required medical management, and subsequently underwent a noninvasive cardiovascular evaluation in [place], [place] with no obvious abnormal cardiovascular findings. She states she went on to her second without any obvious concerns. Now during her third she states it is similar to the first where she has had volume overload and now in the state concerns of recurrent CHF . She states that she was noticing increasing weight, increasing fluid retention in her lower extremities, and yesterday evening the sensation of orthopnea. She notes this is similar to symptoms she had had in the past and based upon her history of preeclampsia presented to the hospital for further evaluation. Upon evaluation she was noted on laboratory studies to have an elevated BNP level. She had an ECG which reported sinus rhythm with no acute ECG changes. She had a chest x-ray and chest CTA scan that demonstrated an element of increased pleural effusion with a report of no great vessel disease or thromboembolic disease. She had a transthoracic echocardiogram performed which demonstrated her overall LV systolic function to appear normal with an estimated LVEF of 70% with no hemodynamically significant valvular heart related disease and findings on agitated saline contrast study appearing compatible with a small PFO versus ASD. She was placed in the PCU for further evaluation and care. She has been treated with IV furosemide/Lasix. She has had increased urinary output. She states already she is feeling so much better with respect to her breathing as well as being able to actually see her lower extremities/ankles again. Has had no ongoing issues of chest discomfort. She denies any palpitations. She states she has not had any near-syncope or syncope. She states that after her pregnancies her blood pressure issues have resolved. She is also unaware of any abnormalities with her cardiac anatomy or physiology in the past such as the possibility of a PFO or ASD. [] Past Medical History Allergies/Adverse Reactions: Allergies No Known Allergies Allergy (Verified 02/03/20 09:24) Home Medications: Ambulatory Orders Medication Instructions Recorded Naproxen [Naprosyn] 250 - 500 mg PO Q8H PRN PRN #30 tab 02/01/20 Oxycodone HCl/Acetaminophen 1 - 2 tab PO Q6H PRN PRN 7 Days 02/01/20 [Percocet 5-325] #15 tab Ibuprofen 400 mg PO DAILY PRN PRN 02/03/20 Past Medical History (Chronic Problems): Chronic Problems (Last Reviewed 01/30/20 @ 11:35 by Michelle Lundberg) Epilepsy (Chronic) has been on meds in the past. she sees dr muller for this. declines meds this , last seizure august 31. encouraged close follow up Surgical History: - - - *Family History Maternal Family History: Family History (Last Reviewed 01/30/20 @ 11:35 by Michelle Lundberg) Father Hypertension Lives: Spouse/ Significant Other Smoking Status: Never smoker Alcohol: None Drugs: None Review of Systems - Review of Systems General: Denies: Fever, Night Sweats, Fatigue Cardiovascular: Reports: Shortness of Breath, Shortness of Breath at Rest, Peripheral Edema. Denies: Chest Discomfort, Orthopnea, PND, Palpitations, Lightheadedness, Dizziness, Near Syncope, Syncope Respiratory: Reports: Shortness of Breath Gastrointestinal: Reports: Indigestion Genitourinary: Denies: Dysuria, Hematuria Skin: Denies: Rash Subjectve: This is a 34-year-old white female who appears to be resting comfortably at the moment in no acute distress. Objective: Vital Signs Temp Pulse Resp BP Pulse Ox 98.0 F 97 18 127/73 H 100 02/03/20 18:03 02/03/20 18:03 02/03/20 18:03 02/03/20 18:03 02/03/20 18:03 Oxygen Delivery Method Room Air Weight: 177 lb 3.2 oz Body Mass Index (BMI) 30.4 Intake and Output for Last 24 Hours 02/01/20 02/02/20 02/03/20 23:59 23:59 23:59 Intake Total 500 / 500 Output Total 700 / 700 Balance -200 / -200 General: Awake, Alert, Oriented x 3, Cooperative, No Acute Distress HEENT: Atraumatic, Normocephalic, PERRL, EOMI, Sclera Non Icteric Neck: Supple, Good ROM, No JVD Lungs: Diminished Left Base Cardiovascular: Regular Rhythm, Normal S1, Normal S2 Vascular: No Carotid Bruits Abdomen: Bowel Sounds Present, Soft Extremities: No edema Neurological: No Focal Motor or Sensory Deficit Psych/Mental Status: Appropriate 02/03/20 10:17: WBC 14.7 H, RBC 2.68 L, Hgb 8.3 L, Hct 25.7 L, MCV 95.9, MCH 31.0, MCHC 32.3, Plt Count 177, MPV 10.9, Immature Gran % (Auto) 1.000 H, Neut % (Auto) 76.6 H, Lymph % (Auto) 13.5 L, [place] % (Auto) 5.9, Eos % (Auto) 2.9, Baso % (Auto) 0.1, Absolute Neuts (auto) 11.3 H, Nucleated RBC % 0 02/03/20 10:17: Sodium 142, Potassium 3.6, Chloride 108 H, Carbon Dioxide 28.0, Anion Gap 6, BUN 15, Creatinine 0.74, Est GFR (MDRD) Af Amer 114, Est GFR (MDRD) Non-Af 94, BUN/Creatinine Ratio 20.2 H, Glucose 82, Calcium 9.0, Magnesium 1.8, Troponin I < 0.015 02/03/20 10:17: B-Natriuretic Peptide 275.3 H 02/03/20 10:17: Total Bilirubin 0.60, Direct Bilirubin 0.38 H 02/03/20 13:31: Urine Color Red, Urine Clarity Cloudy, Urine pH 7.0, Ur Specific [place] 1.005, Urine Protein 30 H, Urine Glucose (UA) Normal, Urine Ketones Negative, Urine Occult Blood 250 H, Urine Nitrite Negative, Urine Bilirubin Negative, Urine Urobilinogen Normal, Ur Leukocyte Esterase 500 H, Urine RBC 25- 50 SEEN, Urine WBC 25-50 SEEN 02/03/20 15:01: WBC 15.5 H, RBC 3.09 L, Hgb 9.5 L, Hct 29.6 L, MCV 95.8, MCH 30.7, MCHC 32.1, Plt Count 241, MPV 11.3 02/03/20 15:01: Sodium 143, Potassium 3.5, Chloride 107, Carbon Dioxide 28.0, Anion Gap 8, BUN 14, Creatinine 0.91, Est GFR (MDRD) Af Amer 90, Est GFR (MDRD) Non-Af 74, BUN/Creatinine Ratio 15.3, Glucose 86, Calcium 9.1, Total Bilirubin 0.50 Rhythm: Sinus rhythm EKG: NSR ECHO: Interpretation Summary Left ventricular systolic function is normal. The estimated ejection fraction is 70 %. Trivial mitral valve insufficiency. Trivial tricuspid valve insufficiency. Trivial pulmonic valve insufficiency. No evidence for diastolic dysfunction. Hypermobile atrial septum. Positive agitated saline contrast study for a right to left interatrial shunt potentially compatible with a small PFO versus ASD. Chest X-ray: IMPRESSION: Mild degree of left basilar atelectasis and blunting of the left costophrenic angle. Chest CTA: IMPRESSION: Small left pleural effusion with left basilar atelectasis. Minimal increased markings at the right lung base. Assessment/Plan 1. Abnormal cardiac enzymes/elevated BNP level The patient does have an elevated BNP level of 275.3. This does raise concern of underlying cardiovascular disease with concerns of possible peripartum related cardiomyopathy and CHF. However, based upon her noninvasive evaluation thus far she appears to have overall preserved left ventricular size and systolic function as well as right ventricular size and systolic function. There are discussions in the literature with respect to elevations of BNP levels during and in the timeframe. With reports commenting about elevation of BNP P levels in -late with higher levels in the timeframe and otherwise healthy females due to changes in volume distribution and left ventricular stress with no obvious changes in left ventricular dysfunction. Jessica there also comments in the literature about increasing BNP levels before bur through placental production and release into the maternal circulation. With comments about the highest elevations in the early period after delivery with highest levels of serum oxytocin. Thus there may be concerns, unless there is another etiology, but this may be related to the aforementioned findings reported in the / timeframe. 2. CHF The patient has been diagnosed with congestive heart failure in the past. In between her pregnancies she states that she had no cardiovascular issues or concerns or required ongoing medical evaluation or care. At the moment she does have an element of volume overload. Her overall cardiac status with respect to her left ventricular size and systolic function appears to be preserved as does her right ventricular size and systolic function. Thus there is some concern that her volume shifts are related to her as opposed to evidence of a peripartum cardiomyopathy with diminished LV systolic function and systolic mediated CHF. At the moment she has been treated medically with IV furosemide/Lasix. She appears to be symptomatically improving. She can be followed based upon her clinical status, examination, and appropriate laboratory studies. 3. Preeclampsia She does have a history of preeclampsia. Again there is been reports of alterations in BNP levels with preeclampsia. Thus there is consideration that this may be related to her history of preeclampsia based on her lack of other cardiovascular findings at this time. At the moment she will continue to be monitored. She will continue her evaluation care as noted. 4. Intra-atrial shunt She does have a finding on her echocardiogram compatible with an interatrial shunt based on her agitated saline contrast study with right to left interatrial shunt potentially compatible with what may be a small PFO or ASD. Is unaware of this in the past. It may be reasonable at some point time when she is symptomatically improved/stable, etc. to consider further evaluation of her interatrial anatomy and physiology with a transesophageal echocardiogram. Overall at the present time she will continue to be monitored. She will continue her diuretic therapy. She will be followed for any other obvious issues. Hopefully if she stabilizes she will be able to continue with outpatient multi specialty follow-up and additional evaluation and care as deemed appropriate. Comment: The patient's case has been previously discussed and reviewed with Dr. Jaquez. This note was generated using a voice recognition system and there may be incorrect words, spelling or punctuation that were not noted when reviewing the office note prior to saving.
[2020-02-03] MEDS: Glycerin/Hypromellose/PEG400 15 ml Bottle 1 DRP EACH EYE (22:31)
--- NOTE | 2020-02-03 23:25 | NURSING ---
AGRICULTURE RESEARCH DIRECTOR notified this RN that pt was sleeping with baby in bed. This RN entered pt room where pt was awake but drowsy while holding sleeping baby. She stated she was about to go to sleep. This RN reminded pt that if she was going to sleep that she would need to place pt in bassinet for safety purposes. Pt was agreeable.
[2020-02-04] VITALS (11 sets, daily range): BP systolic 106–130; BP diastolic 64–77; PULSE 62–106; RESP 16–18; TEMP 36.8–37.4; O2SAT 96–98
--- NOTE | 2020-02-04 00:45 | NURSING ---
This RN up to visit pt room at 0040. Pt resting in room with lights off. No interventions done at this time, RN back to [facility] unit at this time.
--- NOTE | 2020-02-04 00:47 | NURSING ---
Late entry: At 2004 on 02/03/2020, this RN into pt room to determine need for WP RN. Pt finishing infant at this time. RN introduced self and wrote name and extension number on board for pt to reach if infant supplies or help needed. Pt denies further needs at this time. RN out of room and back to WP. RN also introduced self to primary care nurse and gave primary RN extension phone number in case this RN needed.
--- NOTE | 2020-02-04 04:20 | NURSING ---
This RN up to pt room at 0415. Pt awake in darkened room, declines RN assistance/intervention. Pt stated she was doing well. RN reminded pt to call extension number if she needed anything. RN out of room at [id number].
[2020-02-04 06:27] LABS: Absolute Lymphocyte Count 2.02 X10^3/uL (0.83-4.51); Absolute Neutrophil Count 9.3 X10^3/uL (2.0-7.7); Basophil# 0.03 X10^3/uL; Basophil% 0.2 % (0-1); Eosinophil# 0.37 X10^3/uL; Eosinophils% 2.9 % (0-5); Hematocrit 26.8 % (37-47); Hemoglobin 8.6 g/dL (12.0-15.0); Lymphocyte # 2.02 X10^3/ul (4.0); Lymphocyte % 15.6 % (19-41); Mean Corp Hgb Conc 32.1 g/dL (32-36); Mean Corpuscular Hgb 30.5 pg (27.0-32.0); Mean Platelet Vol. 10.6 fl (6.2-12.0); Monocyte# 1.02 X10^3/uL; Monocyte% 7.9 % (0-10); NRBC Flagged by Analyzer 0.2 % (0-5); Platelet Count 244 K/mm3 (150-450); RBC Distribution Width CV 13.9 % (11.6-14.6); RBC Distribution Width SD 48.2 fl (35.1-43.9); Red Blood Count 2.82 M/mm3 (4.2-5.4); White Blood Count 12.9 K/mm3 (4.4-11.0)
[2020-02-04 06:59] LABS: ALB/GLOB Ratio 0.5 RATIO (0.9-2.4); AST(SGOT) 62 U/L (15-37); Alanine Aminotransfer ALT/SGPT 52 U/L (13-56); Alkaline Phosphatase 277 U/L (45-117); Anion Gap 9 (5-15); BUN 15 mg/dL (7-18); BUN/Creat Ratio 18.8 RATIO (10-20); Calcium,Total 7.7 mg/dL (8.5-10.1); Chloride 102 mmol/L (98-107); EST Glomerular Filtration Rate 87 mL/min (>60); Est Glom Filt Rate - Afr Amer 105 mL/min (>60); Estimated Creatinine Clearance 84.76 ml/min; Globulin 3.7 g/dL (2.2-4.2); Glucose 76 mg/dL (74-106); Potassium 3.2 mmol/L (3.5-5.1); Protein, Total 5.7 g/dL (6.4-8.2); Sodium Level 139 mmol/L (136-145)
--- NOTE | 2020-02-04 08:20 | PN_ITS ---
Patient Problems: Active and Suspected Problems (Last Reviewed 01/30/20 @ 11:35 by Michelle Lundberg) Abnormal cardiac enzyme level (Acute) CHF (congestive heart failure) (Acute) Interatrial cardiac shunt (Acute) 38 weeks gestation of (Acute) COVID TESTING ORDERED 01/14/2020sc History of pre-eclampsia in prior , currently (Acute) low dose aspirin daily, 2x wkly BP check or daily if having BP cuff at home, wkly NST in our office History of congestive heart failure in adulthood (Acute) around first delivery, questionable. s/p cardio consult and MFM consult. undiagnosed preeclampsia and then went into congestive heart failure after delivery 06/21/08 AMA (advanced maternal age) multigravida 35+ (Acute) NIPT low risk. growth scan at 36 weeks History of delivery (Acute) plan RLTCS 02/01 at noon if no labor prior. previous cs x 2, NRFHTS. plan TOLAC, recommended epidural during labor to avoid tachycardia but desires minimal intervention Supervision of high risk , antepartum (Acute) PRR JOCELYNN 01/27/20 boy ivanna Schmid SHARMIN (Acute) nipt planned declined carrier and ntd. nl anatomy. NL growth 01/01 Subjective: 34yoF POD#4 from RCD for failed TOLAC admitted for pulmonary edema with concern for CHF. Reports feels much better this morning. Was able to sleep flat on her back without shortness of breath. Denies chest pain. Swelling significantly improved. Denies lightheadedness, dizziness. Objective: Laboratory Tests 02/04/20 02/04/20 02/03/20 Range/Units 05:55 05:55 15:01 WBC 12.9 H (4.4-11.0) K/mm3 RBC 2.82 L (4.2-5.4) M/mm3 Hgb 8.6 L (12.0-15.0) g/dL Hct 26.8 L (37-47) % MCV 95.0 (81-99) fL MCH 30.5 (27.0-32.0) pg MCHC 32.1 (32-36) g/dL RDW Std Deviation 48.2 H (35.1-43.9) fl RDW Coeff of [place]ilo 13.9 (11.6-14.6) % Plt Count 244 (150-450) K/mm3 MPV 10.6 (6.2-12.0) fl Immature Gran % (Auto) 1.400 H (0.0-0.9) % Neut % (Auto) 72.0 H (47-70) % Lymph % (Auto) 15.6 L (19-41) % [place] % (Auto) 7.9 (0-10) % Eos % (Auto) 2.9 (0-5) % Baso % (Auto) 0.2 (0-1) % Absolute Neuts (auto) 9.3 H (2.0-7.7) X10^3/uL Absolute Lymphs (auto) 2.02 (0.83-4.51) X10^3/uL Nucleated RBC % 0.2 (0-5) % Sodium 139 143 (136-145) mmol/L Potassium 3.2 L 3.5 (3.5-5.1) mmol/L Chloride 102 107 (98-107) mmol/L Carbon Dioxide 28.0 28.0 (21.0-32.0) mmol/L Anion Gap 9 8 (5-15) BUN 15 14 (7-18) mg/dL Creatinine 0.80 0.91 (0.55-1.02) mg/dL Estim Creat Clear Calc 84.76 74.51 ml/min Est GFR (MDRD) Af Amer 105 90 (>60) mL/min Est GFR (MDRD) Non-Af 87 74 (>60) mL/min BUN/Creatinine Ratio 18.8 15.3 (10-20) RATIO Glucose 76 86 (74-106) mg/dL Calcium 7.7 L 9.1 (8.5-10.1) mg/dL Magnesium (1.6-2.6) mg/dL Total Bilirubin 0.40 0.50 (0.20-1.00) mg/dL Direct Bilirubin (0.00-0.30) mg/dL AST 62 H 96 H (15-37) U/L ALT 52 59 H (13-56) U/L Alkaline Phosphatase 277 H 373 H (45-117) U/L Troponin I (<0.045) ng/mL B-Natriuretic Peptide (0-100) pg/mL Total Protein 5.7 L 6.4 (6.4-8.2) g/dL Albumin 2.0 L 2.3 L (3.2-5.0) g/dL Globulin 3.7 4.1 (2.2-4.2) g/dL Albumin/Globulin Ratio 0.5 L 0.6 L (0.9-2.4) RATIO TSH 1.69 (0.358-3.74) uIU/mL Urine Color (Yellow) Urine Clarity (Clear) Urine pH (5.0 - 8.0) Ur Specific [place] (1.002-1.030) Urine Protein (Negative) mg/dl Urine Glucose (UA) (Normal) mg/dl Urine Ketones (Negative) mg/dl Urine Occult Blood (Negative) /ul Urine Nitrite (Negative) Urine Bilirubin (Negative) mg/dL Urine Urobilinogen (Normal) mg/dl Ur Leukocyte Esterase (Negative) /ul Urine RBC (0-5) /hpf Urine WBC (0-5) /hpf Ur Squamous Epith Cells (5-10) /hpf Urine Bacteria (None Seen) /hpf Urine Mucus (<or=2+) /hpf 02/03/20 02/03/20 02/03/20 Range/Units 15:01 13:31 10:17 WBC 15.5 H (4.4-11.0) K/mm3 RBC 3.09 L (4.2-5.4) M/mm3 Hgb 9.5 L (12.0-15.0) g/dL Hct 29.6 L (37-47) % MCV 95.8 (81-99) fL MCH 30.7 (27.0-32.0) pg MCHC 32.1 (32-36) g/dL RDW Std Deviation 48.9 H (35.1-43.9) fl RDW Coeff of [place] 14.1 (11.6-14.6) % Plt Count 241 (150-450) K/mm3 MPV 11.3 (6.2-12.0) fl Immature Gran % (Auto) (0.0-0.9) % Neut % (Auto) (47-70) % Lymph % (Auto) (19-41) % [place] % (Auto) (0-10) % Eos % (Auto) (0-5) % Baso % (Auto) (0-1) % Absolute Neuts (auto) (2.0-7.7) X10^3/uL Absolute Lymphs (auto) (0.83-4.51) X10^3/uL Nucleated RBC % (0-5) % Sodium (136-145) mmol/L Potassium (3.5-5.1) mmol/L Chloride (98-107) mmol/L Carbon Dioxide (21.0-32.0) mmol/L Anion Gap (5-15) BUN (7-18) mg/dL Creatinine (0.55-1.02) mg/dL Estim Creat Clear Calc ml/min Est GFR (MDRD) Af Amer (>60) mL/min Est GFR (MDRD) Non-Af (>60) mL/min BUN/Creatinine Ratio (10-20) RATIO Glucose (74-106) mg/dL Calcium (8.5-10.1) mg/dL Magnesium (1.6-2.6) mg/dL Total Bilirubin 0.60 (0.20-1.00) mg/dL Direct Bilirubin 0.38 H (0.00-0.30) mg/dL AST 83 H (15-37) U/L ALT 43 (13-56) U/L Alkaline Phosphatase 291 H (45-117) U/L Troponin I (<0.045) ng/mL B-Natriuretic Peptide (0-100) pg/mL Total Protein 5.5 L (6.4-8.2) g/dL Albumin 2.0 L (3.2-5.0) g/dL Globulin 3.5 (2.2-4.2) g/dL Albumin/Globulin Ratio (0.9-2.4) RATIO TSH (0.358-3.74) uIU/mL Urine Color Red (Yellow) Urine Clarity Cloudy (Clear) Urine pH 7.0 (5.0 - 8.0) Ur Specific [place] 1.005 (1.002-1.030) Urine Protein 30 H (Negative) mg/dl Urine Glucose (UA) Normal (Normal) mg/dl Urine Ketones Negative (Negative) mg/dl Urine Occult Blood 250 H (Negative) /ul Urine Nitrite Negative (Negative) Urine Bilirubin Negative (Negative) mg/dL Urine Urobilinogen Normal (Normal) mg/dl Ur Leukocyte Esterase 500 H (Negative) /ul Urine RBC 25-50 SEEN (0-5) /hpf Urine WBC 25-50 SEEN (0-5) /hpf Ur Squamous Epith Cells 5-10 SEEN (5-10) /hpf Urine Bacteria RARE (None Seen) /hpf Urine Mucus 0 SEEN (<or=2+) /hpf 02/03/20 02/03/20 02/03/20 Range/Units 10:17 10:17 10:17 WBC 14.7 H (4.4-11.0) K/mm3 RBC 2.68 L (4.2-5.4) M/mm3 Hgb 8.3 L (12.0-15.0) g/dL Hct 25.7 L (37-47) % MCV 95.9 (81-99) fL MCH 31.0 (27.0-32.0) pg MCHC 32.3 (32-36) g/dL RDW Std Deviation 49.1 H (35.1-43.9) fl RDW Coeff of [place] 14.0 (11.6-14.6) % Plt Count 177 (150-450) K/mm3 MPV 10.9 (6.2-12.0) fl Immature Gran % (Auto) 1.000 H (0.0-0.9) % Neut % (Auto) 76.6 H (47-70) % Lymph % (Auto) 13.5 L (19-41) % [place] % (Auto) 5.9 (0-10) % Eos % (Auto) 2.9 (0-5) % Baso % (Auto) 0.1 (0-1) % Absolute Neuts (auto) 11.3 H (2.0-7.7) X10^3/uL Absolute Lymphs (auto) 1.98 (0.83-4.51) X10^3/uL Nucleated RBC % 0 (0-5) % Sodium 142 (136-145) mmol/L Potassium 3.6 (3.5-5.1) mmol/L Chloride 108 H (98-107) mmol/L Carbon Dioxide 28.0 (21.0-32.0) mmol/L Anion Gap 6 (5-15) BUN 15 (7-18) mg/dL Creatinine 0.74 (0.55-1.02) mg/dL Estim Creat Clear Calc 91.63 ml/min Est GFR (MDRD) Af Amer 114 (>60) mL/min Est GFR (MDRD) Non-Af 94 (>60) mL/min BUN/Creatinine Ratio 20.2 H (10-20) RATIO Glucose 82 (74-106) mg/dL Calcium 9.0 (8.5-10.1) mg/dL Magnesium 1.8 (1.6-2.6) mg/dL Total Bilirubin (0.20-1.00) mg/dL Direct Bilirubin (0.00-0.30) mg/dL AST (15-37) U/L ALT (13-56) U/L Alkaline Phosphatase (45-117) U/L Troponin I < 0.015 (<0.045) ng/mL B-Natriuretic Peptide 275.3 H (0-100) pg/mL Total Protein (6.4-8.2) g/dL Albumin (3.2-5.0) g/dL Globulin (2.2-4.2) g/dL Albumin/Globulin Ratio (0.9-2.4) RATIO TSH (0.358-3.74) uIU/mL Urine Color (Yellow) Urine Clarity (Clear) Urine pH (5.0 - 8.0) Ur Specific [place] (1.002-1.030) Urine Protein (Negative) mg/dl Urine Glucose (UA) (Normal) mg/dl Urine Ketones (Negative) mg/dl Urine Occult Blood (Negative) /ul Urine Nitrite (Negative) Urine Bilirubin (Negative) mg/dL Urine Urobilinogen (Normal) mg/dl Ur Leukocyte Esterase (Negative) /ul Urine RBC (0-5) /hpf Urine WBC (0-5) /hpf Ur Squamous Epith Cells (5-10) /hpf Urine Bacteria (None Seen) /hpf Urine Mucus (<or=2+) /hpf - Physical Exam Vitals/I&O's: Vital Signs Temp Pulse Resp BP Pulse Ox 98.5 F 104 H 18 117/71 97 02/04/20 02:43 02/04/20 03:00 02/04/20 02:43 02/04/20 02:43 02/04/20 02:43 Oxygen Delivery Method Room Air Weight: 173 lb 1.006 oz Body Mass Index (BMI) 30.4 Intake and Output for Last 24 Hours 10/19/20 10/20/20 10/21/20 23:59 23:59 23:59 Intake Total 500 / 500 Output Total 900 / 900 600 / 600 Balance -400 / -400 -600 / -600 General: Alert, Oriented x3, Cooperative, No apparent distress, Well developed, Well nourished HEENT: Atraumatic, PERRLA, EOMI, Normocephalic Oral: Moist Mucosa Neck: Supple, No JVD Lungs: Clear to auscultation, Normal air movement, No rhonchi, No wheeze, No rales Cardiovascular: Regular rate, Regular Rhythm Abdomen: Soft, Non Tender, Non-Distended Extremities: No cyanosis, Edema - 1+ Neurological: Cranial nerves II-XII grossly intact, Neuro grossly intact Psych/Mental Status: Normal Affect, Appropriate Laboratory Results 02/03/20 10:17: WBC 14.7 H, RBC 2.68 L, Hgb 8.3 L, Hct 25.7 L, MCV 95.9, MCH 31.0, MCHC 32.3, RDW Std Deviation 49.1 H, RDW Coeff of [place] 14.0, Plt Count 177, MPV 10.9, Immature Gran % (Auto) 1.000 H, Neut % (Auto) 76.6 H, Lymph % (Auto) 13.5 L, [place] % (Auto) 5.9, Eos % (Auto) 2.9, Baso % (Auto) 0.1, Absolute Neuts (auto) 11.3 H, Absolute Lymphs (auto) 1.98, Nucleated RBC % 0 02/03/20 10:17: Sodium 142, Potassium 3.6, Chloride 108 H, Carbon Dioxide 28.0, Anion Gap 6, BUN 15, Creatinine 0.74, Estim Creat Clear Calc 91.63, Est GFR (MDRD) Af Amer 114, Est GFR (MDRD) Non-Af 94, BUN/Creatinine Ratio 20.2 H, Glucose 82, Calcium 9.0, Magnesium 1.8, Troponin I < 0.015 02/03/20 10:17: B-Natriuretic Peptide 275.3 H 02/03/20 10:17: Total Bilirubin 0.60, Direct Bilirubin 0.38 H, AST 83 H, ALT 43, Alkaline Phosphatase 291 H, Total Protein 5.5 L, Albumin 2.0 L, Globulin 3.5 02/03/20 13:31: Urine Color Red, Urine Clarity Cloudy, Urine pH 7.0, Ur Specific [place] 1.005, Urine Protein 30 H, Urine Glucose (UA) Normal, Urine Ketones Negative, Urine Occult Blood 250 H, Urine Nitrite Negative, Urine Bilirubin Negative, Urine Urobilinogen Normal, Ur Leukocyte Esterase 500 H, Urine RBC 25- 50 SEEN, Urine WBC 25-50 SEEN, Ur Squamous Epith Cells 5-10 SEEN, Urine Bacteria RARE, Urine Mucus 0 SEEN 02/03/20 15:01: WBC 15.5 H, RBC 3.09 L, Hgb 9.5 L, Hct 29.6 L, MCV 95.8, MCH 30.7, MCHC 32.1, RDW Std Deviation 48.9 H, RDW Coeff of [place] 14.1, Plt Count 241, MPV 11.3 02/03/20 15:01: Sodium 143, Potassium 3.5, Chloride 107, Carbon Dioxide 28.0, Anion Gap 8, BUN 14, Creatinine 0.91, Estim Creat Clear Calc 74.51, Est GFR (MDRD) Af Amer 90, Est GFR (MDRD) Non-Af 74, BUN/Creatinine Ratio 15.3, Glucose 86, Calcium 9.1, Total Bilirubin 0.50, AST 96 H, ALT 59 H, Alkaline Phosphatase 373 H, Total Protein 6.4, Albumin 2.3 L, Globulin 4.1, Albumin/Globulin Ratio 0.6 L, TSH 1.69 02/04/20 05:55: WBC 12.9 H, RBC 2.82 L, Hgb 8.6 L, Hct 26.8 L, MCV 95.0, MCH 30.5, MCHC 32.1, RDW Std Deviation 48.2 H, RDW Coeff of [place] 13.9, Plt Count 244, MPV 10.6, Immature Gran % (Auto) 1.400 H, Neut % (Auto) 72.0 H, Lymph % (Auto) 15.6 L, [place] % (Auto) 7.9, Eos % (Auto) 2.9, Baso % (Auto) 0.2, Absolute Neuts (auto) 9.3 H, Absolute Lymphs (auto) 2.02, Nucleated RBC % 0.2 02/04/20 05:55: Sodium 139, Potassium 3.2 L, Chloride 102, Carbon Dioxide 28.0, Anion Gap 9, BUN 15, Creatinine 0.80, Estim Creat Clear Calc 84.76, Est GFR (MDRD) Af Amer 105, Est GFR (MDRD) Non-Af 87, BUN/Creatinine Ratio 18.8, Glucose 76, Calcium 7.7 L, Total Bilirubin 0.40, AST 62 H, ALT 52, Alkaline Phosphatase 277 H, Total Protein 5.7 L, Albumin 2.0 L, Globulin 3.7, Albumin/Globulin Ratio 0.5 L Current Medications Acetaminophen (Acetaminophen 325 Mg Tablet) 650 mg PO Q6H PRN PRN PRN Reason: Pain Score 1-10/Temp > 100.7 F Enoxaparin Sodium (Enoxaparin 40 Mg/0.4 Ml Syringe) 40 mg SC DAILY [facility] Furosemide (Furosemide 40 Mg/4 Ml Vial) 40 mg IV BID@1000,1800 KEVAN Last Admin: 02/03/20 18:06 Dose: 40 mg Documented by: Nutritional Formula (Lactose Free) (Ensure Enlive 120 Ml Liquid) 120 ml PO 4X/DAY [facility] Last Admin: 02/03/20 22:27 Dose: 120 ml Documented by: Ondansetron HCl (Ondansetron 4 Mg/2 Ml Vial) 4 mg IV Q8H PRN PRN PRN Reason: NAUSEA/VOMITING Oxycodone HCl (Oxycodone 5 Mg Tablet) 5 mg PO Q4H PRN PRN PRN Reason: Pain Score 4-5 Last Admin: 02/03/20 23:29 Dose: 5 mg Documented by: Oxycodone HCl (Oxycodone 5 Mg Tablet) 10 mg PO Q4H PRN PRN PRN Reason: Pain Score 6-10 Promethazine HCl (Promethazine 25 Mg/Ml Syringe) 25 mg IM Q6H PRN PRN PRN Reason: Breakthrough nausea/vomiting Senna/Docusate Sodium (Senna/Docusate Sodium 1 Tablet) 2 tablet PO BID PRN PRN PRN Reason: Constipation Sodium Chloride (0.9% Saline Lock 10 Ml Syringe) 10 - 40 ml IV UD PRN PRN Reason: SALINE FLUSH Last Admin: 02/03/20 18:06 Dose: 10 ml Documented by: Medical Necessity - Tobacco Use Smoking Status: Never smoker Assessment/Plan All Active Problems (Last Reviewed 01/30/20 @ 11:35 by Michelle Lundberg) Abnormal cardiac enzyme level (Acute) CHF (congestive heart failure) (Acute) Interatrial cardiac shunt (Acute) 38 weeks gestation of (Acute) History of pre-eclampsia in prior , currently (Acute) History of congestive heart failure in adulthood (Acute) AMA (advanced maternal age) multigravida 35+ (Acute) History of delivery (Acute) Supervision of high risk , antepartum (Acute) (Acute) Shortness of breath during (Resolved) Supervision of normal (Resolved) 34yoF POD#4 s/p RCD for failed TOLAC admitted for shortness of breath with concern for CHF - Echo normal - Labs normalizing this am - LFTs decreased, creatinine trended down - Symptomatically improved - denies further shortness of breath, edema decreased significantly - BPs normal overnight - no concern for preeclampsia at this time - Patient discussed with Dr. Agosto. Will plan to keep until tomorrow to allow additional time for diuresis. Multi Select Codes - Visit Charges Observation E&M Codin Subsequent observation care L3
[2020-02-04] MEDS: Senna/Docusate Sodium 1 Tablet 2 TABLET PO (09:30)
[2020-02-04] MEDS: 0.9% Saline Lock 10 ML Syringe IV ×2 (09:30→17:30)
[2020-02-04] MEDS: Furosemide 40 MG/4 ML Vial IV ×2 (09:30→17:30)
[2020-02-04] MEDS: Enoxaparin 40 MG/0.4 ML Syringe SC (09:30)
--- NOTE | 2020-02-04 09:42 | PCM.PN.CARD ---
Subjectve: The patient is awake and alert. She states overall she does feel better. However she knows she is still holding onto some excess fluid. Objective: Vital Signs Temp Pulse Resp BP Pulse Ox 98.5 F 96 18 117/71 97 02/04/20 02:43 02/04/20 07:00 02/04/20 02:43 02/04/20 02:43 02/04/20 02:43 Oxygen Delivery Method Room Air Weight: 173 lb 1.006 oz Body Mass Index (BMI) 30.4 Intake and Output for Last 24 Hours 02/02/20 02/03/20 02/04/20 23:59 23:59 23:59 Intake Total 500 / 500 Output Total 900 / 900 600 / 600 Balance -400 / -400 -600 / -600 General: Awake, Alert, Oriented x 3, Cooperative, No Acute Distress HEENT: Atraumatic, Normocephalic, PERRL, EOMI, Sclera Non Icteric Neck: Supple, Good ROM, No JVD Lungs: Diminished Left Base - Minimal Cardiovascular: Regular Rhythm, Normal S1, Normal S2 Abdomen: Bowel Sounds Present, Soft Extremities: No edema Neurological: No Focal Motor or Sensory Deficit Psych/Mental Status: Appropriate 02/03/20 10:17: WBC 14.7 H, RBC 2.68 L, Hgb 8.3 L, Hct 25.7 L, MCV 95.9, MCH 31.0, MCHC 32.3, Plt Count 177, MPV 10.9, Immature Gran % (Auto) 1.000 H, Neut % (Auto) 76.6 H, Lymph % (Auto) 13.5 L, [place] % (Auto) 5.9, Eos % (Auto) 2.9, Baso % (Auto) 0.1, Absolute Neuts (auto) 11.3 H, Nucleated RBC % 0 02/03/20 10:17: Sodium 142, Potassium 3.6, Chloride 108 H, Carbon Dioxide 28.0, Anion Gap 6, BUN 15, Creatinine 0.74, Est GFR (MDRD) Af Amer 114, Est GFR (MDRD) Non-Af 94, BUN/Creatinine Ratio 20.2 H, Glucose 82, Calcium 9.0, Magnesium 1.8, Troponin I < 0.015 02/03/20 10:17: B-Natriuretic Peptide 275.3 H 02/03/20 10:17: Total Bilirubin 0.60, Direct Bilirubin 0.38 H 02/03/20 13:31: Urine Color Red, Urine Clarity Cloudy, Urine pH 7.0, Ur Specific [place] 1.005, Urine Protein 30 H, Urine Glucose (UA) Normal, Urine Ketones Negative, Urine Occult Blood 250 H, Urine Nitrite Negative, Urine Bilirubin Negative, Urine Urobilinogen Normal, Ur Leukocyte Esterase 500 H, Urine RBC 25-50 SEEN, Urine WBC 25-50 SEEN 02/03/20 15:01: WBC 15.5 H, RBC 3.09 L, Hgb 9.5 L, Hct 29.6 L, MCV 95.8, MCH 30.7, MCHC 32.1, Plt Count 241, MPV 11.3 02/03/20 15:01: Sodium 143, Potassium 3.5, Chloride 107, Carbon Dioxide 28.0, Anion Gap 8, BUN 14, Creatinine 0.91, Est GFR (MDRD) Af Amer 90, Est GFR (MDRD) Non-Af 74, BUN/Creatinine Ratio 15.3, Glucose 86, Calcium 9.1, Total Bilirubin 0.50 02/04/20 05:55: WBC 12.9 H, RBC 2.82 L, Hgb 8.6 L, Hct 26.8 L, MCV 95.0, MCH 30.5, MCHC 32.1, Plt Count 244, MPV 10.6, Immature Gran % (Auto) 1.400 H, Neut % (Auto) 72.0 H, Lymph % (Auto) 15.6 L, [place] % (Auto) 7.9, Eos % (Auto) 2.9, Baso % (Auto) 0.2, Absolute Neuts (auto) 9.3 H, Nucleated RBC % 0.2 02/04/20 05:55: Sodium 139, Potassium 3.2 L, Chloride 102, Carbon Dioxide 28.0, Anion Gap 9, BUN 15, Creatinine 0.80, Est GFR (MDRD) Af Amer 105, Est GFR (MDRD) Non-Af 87, BUN/Creatinine Ratio 18.8, Glucose 76, Calcium 7.7 L, Total Bilirubin 0.40 Rhythm: Sinus rhythm Medical Necessity - Tobacco Use Smoking Status: Never smoker Assessment/Plan 1. Abnormal cardiac enzymes/elevated BNP level The patient does have an elevated BNP level of 275.3. This does raise concern of underlying cardiovascular disease with concerns of possible peripartum related cardiomyopathy and CHF. However, based upon her noninvasive evaluation thus far she appears to have overall preserved left ventricular size and systolic function as well as right ventricular size and systolic function. There are discussions in the literature with respect to elevations of BNP levels during and in the timeframe. With reports commenting about elevation of BNP P levels in -late with higher levels in the timeframe and otherwise healthy females due to changes in volume distribution and left ventricular stress with no obvious changes in left ventricular dysfunction. [place] there also comments in the literature about increasing BNP levels before bur through placental production and release into the maternal circulation. With comments about the highest elevations in the early period after delivery with highest levels of serum oxytocin. Thus there may be concerns, unless there is another etiology, but this may be related to the aforementioned findings reported in the / timeframe. 2. CHF The patient has been diagnosed with congestive heart failure in the past. In between her pregnancies she states that she had no cardiovascular issues or concerns or required ongoing medical evaluation or care. At the moment she does have an element of volume overload. Her overall cardiac status with respect to her left ventricular size and systolic function appears to be preserved as does her right ventricular size and systolic function. Thus there is some concern that her volume shifts are related to her as opposed to evidence of a peripartum cardiomyopathy with diminished LV systolic function and systolic mediated CHF. At the moment she has been treated medically with IV furosemide/Lasix. She appears to be symptomatically improving. She is being followed based upon her examination and her laboratory studies. 3. Preeclampsia She does have a history of preeclampsia. Again there is been reports of alterations in BNP levels with preeclampsia. Thus there is consideration that this may be related to her history of preeclampsia based on her lack of other cardiovascular findings at this time. At the moment she will continue to be monitored. She will continue her evaluation care as noted. 4. Intra-atrial shunt She does have a finding on her echocardiogram compatible with an interatrial shunt based on her agitated saline contrast study with right to left interatrial shunt potentially compatible with what may be a small PFO or ASD. Is unaware of this in the past. It may be reasonable at some point time when she is symptomatically improved/stable, etc. to consider further evaluation of her interatrial anatomy and physiology with a transesophageal echocardiogram. Overall, the present time, she will continue to be monitored. She is continuing diuresis. She will be followed with respect to her symptoms and her examination and her laboratory studies. Hopefully as this continues to improve she will be able to released home in the near future for continued outpatient follow-up as deemed appropriate. This note was generated using a voice recognition system and there may be incorrect words, spelling or punctuation that were not noted when reviewing the office note prior to saving.
--- NOTE | 2020-02-04 11:20 | PCM.PN.HOSP ---
Patient Problems: Active and Suspected Problems (Last Reviewed 01/30/20 @ 11:35 by Michelle Lundberg) Abnormal cardiac enzyme level (Acute) CHF (congestive heart failure) (Acute) Interatrial cardiac shunt (Acute) 38 weeks gestation of (Acute) COVID TESTING ORDERED 01/14/2020sc History of pre-eclampsia in prior , currently (Acute) low dose aspirin daily, 2x wkly BP check or daily if having BP cuff at home, wkly NST in our office History of congestive heart failure in adulthood (Acute) around first delivery, questionable. s/p cardio consult and MFM consult. undiagnosed preeclampsia and then went into congestive heart failure after delivery 06/21/08 AMA (advanced maternal age) multigravida 35+ (Acute) NIPT low risk. growth scan at 36 weeks History of delivery (Acute) plan RLTCS 02/01 at noon if no labor prior. previous cs x 2, NRFHTS. plan TOLAC, recommended epidural during labor to avoid tachycardia but desires minimal intervention Supervision of high risk , antepartum (Acute) PRR JOCELYNN 01/27/20 boy ivanna Schmid SHARMIN (Acute) nipt planned declined carrier and ntd. nl anatomy. NL growth 01/01 Subjective: Patient seen and examined. She has no complaints and feels much better. Shortness of breath has markedly improved. Swelling of her lower extremities is also improved. Review of stems otherwise negative. She has remained hemodynamically stable. Vitals/I&O's: Vital Signs Temp Pulse Resp BP Pulse Ox 98.4 F 106 H 18 130/77 H 97 02/04/20 09:20 02/04/20 09:20 02/04/20 09:20 02/04/20 09:20 02/04/20 09:20 Oxygen Delivery Method Room Air Weight: 173 lb 1.006 oz Body Mass Index (BMI) 30.4 Intake and Output for Last 24 Hours 02/02/20 02/03/20 02/04/20 23:59 23:59 23:59 Intake Total 500 / 500 Output Total 900 / 900 600 / 600 Balance -400 / -400 -600 / -600 General: Alert, Oriented x3, Cooperative, No apparent distress HEENT: Atraumatic, PERRLA, EOMI, Normocephalic Oral: Moist Mucosa Neck: Supple, No JVD, Negative Carotid Bruits Lungs: - -Clear to auscultation. On room air. Cardiovascular: Normal S1, Normal S2, No murmurs, normal rate and rhythm Abdomen: Bowel Sounds Present, Soft, Non Tender, - - abdomen mildly distended, no tenderness. Suprapubic dressing in place, over CS site Extremities: No clubbing, No cyanosis,1+ bipedal pitting edema Skin: No rashes, No breakdown Musculoskeletal: No Tenderness to Palpation of Joints or Extremities Lymphatic: No Cervical, Supraclavicular, or Inguinal Adenopathy Neurological: Cranial nerves II-XII grossly intact, Neuro grossly intact, Motor Exam 5/5 strength throughout Psych/Mental Status: Normal Affect, Appropriate, Alert and oriented to time, place, person, mood and affect Laboratory Results 02/03/20 10:17: B-Natriuretic Peptide 275.3 H 02/03/20 10:17: Total Bilirubin 0.60, Direct Bilirubin 0.38 H, AST 83 H, ALT 43, Alkaline Phosphatase 291 H, Total Protein 5.5 L, Albumin 2.0 L, Globulin 3.5 02/03/20 13:31: Urine Color Red, Urine Clarity Cloudy, Urine pH 7.0, Ur Specific [place] 1.005, Urine Protein 30 H, Urine Glucose (UA) Normal, Urine Ketones Negative, Urine Occult Blood 250 H, Urine Nitrite Negative, Urine Bilirubin Negative, Urine Urobilinogen Normal, Ur Leukocyte Esterase 500 H, Urine RBC 25-50 SEEN, Urine WBC 25-50 SEEN, Ur Squamous Epith Cells 5-10 SEEN, Urine Bacteria RARE, Urine Mucus 0 SEEN 02/03/20 15:01: WBC 15.5 H, RBC 3.09 L, Hgb 9.5 L, Hct 29.6 L, MCV 95.8, MCH 30.7, MCHC 32.1, RDW Std Deviation 48.9 H, RDW Coeff of [place] 14.1, Plt Count 241, MPV 11.3 02/03/20 15:01: Sodium 143, Potassium 3.5, Chloride 107, Carbon Dioxide 28.0, Anion Gap 8, BUN 14, Creatinine 0.91, Estim Creat Clear Calc 74.51, Est GFR (MDRD) Af Amer 90, Est GFR (MDRD) Non-Af 74, BUN/Creatinine Ratio 15.3, Glucose 86, Calcium 9.1, Total Bilirubin 0.50, AST 96 H, ALT 59 H, Alkaline Phosphatase 373 H, Total Protein 6.4, Albumin 2.3 L, Globulin 4.1, Albumin/Globulin Ratio 0.6 L, TSH 1.69 02/04/20 05:55: WBC 12.9 H, RBC 2.82 L, Hgb 8.6 L, Hct 26.8 L, MCV 95.0, MCH 30.5, MCHC 32.1, RDW Std Deviation 48.2 H, RDW Coeff of [place] 13.9, Plt Count 244, MPV 10.6, Immature Gran % (Auto) 1.400 H, Neut % (Auto) 72.0 H, Lymph % (Auto) 15.6 L, [place] % (Auto) 7.9, Eos % (Auto) 2.9, Baso % (Auto) 0.2, Absolute Neuts (auto) 9.3 H, Absolute Lymphs (auto) 2.02, Nucleated RBC % 0.2 02/04/20 05:55: Sodium 139, Potassium 3.2 L, Chloride 102, Carbon Dioxide 28.0, Anion Gap 9, BUN 15, Creatinine 0.80, Estim Creat Clear Calc 84.76, Est GFR (MDRD) Af Amer 105, Est GFR (MDRD) Non-Af 87, BUN/Creatinine Ratio 18.8, Glucose 76, Calcium 7.7 L, Total Bilirubin 0.40, AST 62 H, ALT 52, Alkaline Phosphatase 277 H, Total Protein 5.7 L, Albumin 2.0 L, Globulin 3.7, Albumin/Globulin Ratio 0.5 L Diagnostic Data Chest X-Ray 02/03/20 10:25 IMPRESSION: Mild degree of left basilar atelectasis and blunting of the left costophrenic angle. Electronically Signed: Alli Parham, at 10:44 EDT , Service support , Chest CTA 02/03/20 10:59 IMPRESSION: Small left pleural effusion with left basilar atelectasis. Minimal increased markings at the right lung base. Electronically Signed: Alli Parham, at 12:02 EDT , Service support , Current Medications Acetaminophen (Acetaminophen 325 Mg Tablet) 650 mg PO Q6H PRN PRN PRN Reason: Pain Score 1-10/Temp > 100.7 F Enoxaparin Sodium (Enoxaparin 40 Mg/0.4 Ml Syringe) 40 mg SC DAILY [facility] Last Admin: 02/04/20 09:30 Dose: 40 mg Documented by: Furosemide (Furosemide 40 Mg/4 Ml Vial) 40 mg IV BID@1000,1800 [facility] Last Admin: 02/04/20 09:30 Dose: 40 mg Documented by: Nutritional Formula (Lactose Free) (Ensure Enlive 120 Ml Liquid) 120 ml PO 4X/DAY [facility] Last Admin: 02/04/20 09:30 Dose: 120 ml Documented by: Ondansetron HCl (Ondansetron 4 Mg/2 Ml Vial) 4 mg IV Q8H PRN PRN PRN Reason: NAUSEA/VOMITING Oxycodone HCl (Oxycodone 5 Mg Tablet) 5 mg PO Q4H PRN PRN PRN Reason: Pain Score 4-5 Last Admin: 02/03/20 23:29 Dose: 5 mg Documented by: Oxycodone HCl (Oxycodone 5 Mg Tablet) 10 mg PO Q4H PRN PRN PRN Reason: Pain Score 6-10 Promethazine HCl (Promethazine 25 Mg/Ml Syringe) 25 mg IM Q6H PRN PRN PRN Reason: Breakthrough nausea/vomiting Senna/Docusate Sodium (Senna/Docusate Sodium 1 Tablet) 2 tablet PO BID PRN PRN PRN Reason: Constipation Last Admin: 02/04/20 09:30 Dose: 2 tablet Documented by: Sodium Chloride (0.9% Saline Lock 10 Ml Syringe) 10 - 40 ml IV UD PRN PRN Reason: SALINE FLUSH Last Admin: 02/04/20 09:30 Dose: 10 ml Documented by: STROKE Vital Signs/Narrative: Vital Signs Temp Pulse Resp BP Pulse Ox 02/04/20 09:20 98.4 F 106 H 18 130/77 H 97 Medical Necessity - Tobacco Use Smoking Status: Never smoker Assessment/Plan All Active Problems (Last Reviewed 01/30/20 @ 11:35 by Michelle Lundberg) Abnormal cardiac enzyme level (Acute) CHF (congestive heart failure) (Acute) Interatrial cardiac shunt (Acute) 38 weeks gestation of (Acute) History of pre-eclampsia in prior , currently (Acute) History of congestive heart failure in adulthood (Acute) AMA (advanced maternal age) multigravida 35+ (Acute) History of delivery (Acute) Supervision of high risk , antepartum (Acute) (Acute) Shortness of breath during (Resolved) Supervision of normal (Resolved) 34 y/o admitted with a complaint of shortness of breath #Acute post heart failure of unknown EF Patient admitted to PCU with telemetry under obstetric service Received a dose of IV Lasix in the ED. Continue IV Lasix 40 mg twice daily. Monitor intake and output. Fluid restrictions thousand 500 cc daily. in cumulative negative balance by 1L 2D echo: EF of 70%, with trivial mitral and tricuspid valve insufficiency, with hypermobile atrial septum, and positive saline contrast study for right to left atrial shunt potentially compatible with small PFO vs ASD. Cardiology on board continue diuresis # Post day 3 delivered by CS 3 days ago. Obstetrics on board # Elevated BP BP prior to discharge from obstetrics service was ~110 systolic. BP in the 130s systolic. trend BP. Obstetrics doesnt think this is due to pre eclampsia will monitor. DVT prophylaxis; lovenox OBSV E&M: [id number] Subsequent observation care L2
[2020-02-04] MEDS: Acetaminophen 325 MG Tablet 650 MG PO ×2 (14:33→23:02)
[2020-02-05 03:00] VITALS: PULSE 89
[2020-02-05 05:15] VITALS: BP 97/64; PULSE 89; RESP 16; TEMP 36.9; O2SAT 97
[2020-02-05 06:30] LABS: Anion Gap 7 (5-15); BUN 17 mg/dL (7-18); BUN/Creat Ratio 24.8 RATIO (10-20); Calcium,Total 8.1 mg/dL (8.5-10.1); Chloride 105 mmol/L (98-107); Creatinine, Serum 0.69 mg/dL (0.55-1.02); EST Glomerular Filtration Rate 103 mL/min (>60); Est Glom Filt Rate - Afr Amer 125 mL/min (>60); Estimated Creatinine Clearance 98.27 ml/min; Glucose 77 mg/dL (74-106); Potassium 3.7 mmol/L (3.5-5.1); Sodium Level 139 mmol/L (136-145)
[2020-02-05 07:30] VITALS: PULSE 89
--- NOTE | 2020-02-05 07:45 | PCM.PN.OB ---
Patient Problems: Active and Suspected Problems (Last Reviewed 01/30/20 @ 11:35 by Michelle Lundberg) Abnormal cardiac enzyme level (Acute) CHF (congestive heart failure) (Acute) Interatrial cardiac shunt (Acute) 38 weeks gestation of (Acute) COVID TESTING ORDERED 01/14/2020sc History of pre-eclampsia in prior , currently (Acute) low dose aspirin daily, 2x wkly BP check or daily if having BP cuff at home, wkly NST in our office History of congestive heart failure in adulthood (Acute) around first delivery, questionable. s/p cardio consult and MFM consult. undiagnosed preeclampsia and then went into congestive heart failure after delivery 06/21/08 AMA (advanced maternal age) multigravida 35+ (Acute) NIPT low risk. growth scan at 36 weeks History of delivery (Acute) plan RLTCS 02/01 at noon if no labor prior. previous cs x 2, NRFHTS. plan TOLAC, recommended epidural during labor to avoid tachycardia but desires minimal intervention Supervision of high risk , antepartum (Acute) PRR JOCELYNN 01/27/20 boy ivanna Schmid SHARMIN (Acute) nipt planned declined carrier and ntd. nl anatomy. NL growth 01/01 Subjective: 34yoF POD#5 from RCD for failed TOLAC admitted for pulmonary edema with concern for CHF. Denies chest pain. Swelling continues to improve. Denies lightheadedness, dizziness. - Physical Exam Vitals/I&O's: Vital Signs Temp Pulse Resp BP Pulse Ox 98.5 F 89 16 97/64 97 02/05/20 05:15 02/05/20 05:15 02/05/20 05:15 02/05/20 05:15 02/05/20 05:15 Oxygen Delivery Method Room Air Weight: 167 lb 5.294 oz Body Mass Index (BMI) 30.4 Intake and Output for Last 24 Hours 02/03/20 02/04/20 02/05/20 23:59 23:59 23:59 Intake Total 500 / 500 910 / 910 Output Total 900 / 900 600 / 600 Balance -400 / -400 310 / 310 General: Alert, Oriented x3 Laboratory Results 02/05/20 05:10: Sodium 139, Potassium 3.7, Chloride 105, Carbon Dioxide 27.0, Anion Gap 7, BUN 17, Creatinine 0.69, Estim Creat Clear Calc 98.27, Est GFR (MDRD) Af Amer 125, Est GFR (MDRD) Non-Af 103, BUN/Creatinine Ratio 24.8 H, Glucose 77, Calcium 8.1 L Current Medications Acetaminophen (Acetaminophen 325 Mg Tablet) 650 mg PO Q6H PRN PRN PRN Reason: Pain Score 1-10/Temp > 100.7 F Last Admin: 02/04/20 23:02 Dose: 650 mg Documented by: Enoxaparin Sodium (Enoxaparin 40 Mg/0.4 Ml Syringe) 40 mg SC DAILY [facility] Last Admin: 02/04/20 09:30 Dose: 40 mg Documented by: Furosemide (Furosemide 40 Mg/4 Ml Vial) 40 mg IV BID@1000,1800 [facility] Last Admin: 02/04/20 17:30 Dose: 40 mg Documented by: Nutritional Formula (Lactose Free) (Ensure Enlive 120 Ml Liquid) 120 ml PO 4X/DAY [facility] Last Admin: 02/04/20 23:02 Dose: 120 ml Documented by: Ondansetron HCl (Ondansetron 4 Mg/2 Ml Vial) 4 mg IV Q8H PRN PRN PRN Reason: NAUSEA/VOMITING Oxycodone HCl (Oxycodone 5 Mg Tablet) 5 mg PO Q4H PRN PRN PRN Reason: Pain Score 4-5 Last Admin: 02/03/20 23:29 Dose: 5 mg Documented by: Oxycodone HCl (Oxycodone 5 Mg Tablet) 10 mg PO Q4H PRN PRN PRN Reason: Pain Score 6-10 Promethazine HCl (Promethazine 25 Mg/Ml Syringe) 25 mg IM Q6H PRN PRN PRN Reason: Breakthrough nausea/vomiting Senna/Docusate Sodium (Senna/Docusate Sodium 1 Tablet) 2 tablet PO BID PRN PRN PRN Reason: Constipation Last Admin: 02/04/20 09:30 Dose: 2 tablet Documented by: Sodium Chloride (0.9% Saline Lock 10 Ml Syringe) 10 - 40 ml IV UD PRN PRN Reason: SALINE FLUSH Last Admin: 02/04/20 17:30 Dose: 10 ml Documented by: Medical Necessity - Tobacco Use Smoking Status: Never smoker Assessment/Plan All Active Problems (Last Reviewed 01/30/20 @ 11:35 by Michelle Lundberg) Abnormal cardiac enzyme level (Acute) CHF (congestive heart failure) (Acute) Interatrial cardiac shunt (Acute) 38 weeks gestation of (Acute) History of pre-eclampsia in prior , currently (Acute) History of congestive heart failure in adulthood (Acute) AMA (advanced maternal age) multigravida 35+ (Acute) History of delivery (Acute) Supervision of high risk , antepartum (Acute) (Acute) Shortness of breath during (Resolved) Supervision of normal (Resolved) 34-year-old postop day 3 from repeat 34-year-old postop day 5 repeat low transverse failed admitted for shortness of breath and edema, rule out cardiomyopathy diuresis continues, appreciate medicine following. stable for discharge today. fu in office next week Breast-feeding?patient pumping.
--- NOTE | 2020-02-05 07:53 | DCINST_ITS ---
- Discharge Diagnoses Current Active Problems: Current Active and Chronic Problems (Last Reviewed 01/30/20 @ 11:35 by Michelle Lundberg) Abnormal cardiac enzyme level (Acute) CHF (congestive heart failure) (Acute) Interatrial cardiac shunt (Acute) 38 weeks gestation of (Acute) COVID TESTING ORDERED 01/14/2020sc History of pre-eclampsia in prior , currently (Acute) low dose aspirin daily, 2x wkly BP check or daily if having BP cuff at home, wkly NST in our office History of congestive heart failure in adulthood (Acute) around first delivery, questionable. s/p cardio consult and MFM consult. undiagnosed preeclampsia and then went into congestive heart failure after delivery 06/21/08 AMA (advanced maternal age) multigravida 35+ (Acute) NIPT low risk. growth scan at 36 weeks History of delivery (Acute) plan RLTCS 02/01 at noon if no labor prior. previous cs x 2, NRFHTS. plan TOLAC, recommended epidural during labor to avoid tachycardia but desires minimal intervention Epilepsy (Chronic) has been on meds in the past. she sees dr muller for this. declines meds this , last seizure august 31. encouraged close follow up Supervision of high risk , antepartum (Acute) PRR JOCELYNN 01/27/20 boy ivanna Schmid SHARMIN (Acute) nipt planned declined carrier and ntd. nl anatomy. NL growth 01/01 You will use the following diet at home:: No restrictions Discharge Activity: Return to Normal Activity May resume sexual activity in: 4-6 weeks Weight Bearing Status: Full weight bearing Lifting Restrictions: 30 lbs Call your doctor if your incision/area has: Sudden Increased Bleeding, Increased Pain/ Swelling, Increased Redness, Swelling at the incision site Call your doctor if you observe: Fever of 101 or Higher Cleanse incision/area with: Keep Dressing Clean & Dry Allergies/Adverse Reactions: Allergies No Known Allergies Allergy (Verified 02/03/20 09:24) Medications to take at Discharge Naproxen [Naprosyn] 250 - 500 mg PO Q8H PRN PRN #30 tab 02/01/20 Oxycodone HCl/Acetaminophen [Percocet 5-325] 1 - 2 tab PO Q6H PRN PRN 7 Days #15 tab 02/01/20 Ibuprofen 400 mg PO DAILY PRN PRN 02/03/20 Primary Care Physician: Care Physician,No Primary [Primary Care Provider] - Test Results: Test results from this visit will be discussed in further detail at your follow- up appointment, if applicable.
[2020-02-05] MEDS: 0.9% Saline Lock 10 ML Syringe IV (09:20)
[2020-02-05] MEDS: Enoxaparin 40 MG/0.4 ML Syringe SC (09:20)
[2020-02-05] MEDS: Furosemide 40 MG/4 ML Vial IV (09:20)
[2020-02-05 09:30] VITALS: BP 123/76; PULSE 111; RESP 16; TEMP 37; O2SAT 98
--- NOTE | 2020-02-05 09:34 | PN.CARD_ITS ---
Subjectve: The patient is awake and alert. She states she feels back to her baseline status. She slept in the supine position without any obvious respiratory r elated issues. She believes her lower extremity edema has totally resolved at this time. Objective: Vital Signs Temp Pulse Resp BP Pulse Ox 98.5 F 89 16 97/64 97 02/05/20 05:15 02/05/20 07:30 02/05/20 05:15 02/05/20 05:15 02/05/20 05:15 Oxygen Delivery Method Room Air Weight: 167 lb 5.294 oz Body Mass Index (BMI) 30.4 Intake and Output for Last 24 Hours 02/03/20 02/04/20 02/05/20 23:59 23:59 23:59 Intake Total 500 / 500 910 / 910 Output Total 900 / 900 600 / 600 Balance -400 / -400 310 / 310 General: Awake, Alert, Oriented x 3, Cooperative, No Acute Distress HEENT: Atraumatic, PERRL, EOMI, Sclera Non Icteric Neck: Supple, Good ROM, No JVD Lungs: Clear to auscultation Cardiovascular: Regular Rhythm, Normal S1, Normal S2 Abdomen: Bowel Sounds Present, Soft Extremities: No edema Neurological: No Focal Motor or Sensory Deficit Psych/Mental Status: Appropriate 02/05/20 05:10: Sodium 139, Potassium 3.7, Chloride 105, Carbon Dioxide 27.0, Anion Gap 7, BUN 17, Creatinine 0.69, Est GFR (MDRD) Af Amer 125, Est GFR (MDRD) Non-Af 103, BUN/Creatinine Ratio 24.8 H, Glucose 77, Calcium 8.1 L Rhythm: Sinus rhythm Medical Necessity - Tobacco Use Smoking Status: Never smoker Assessment/Plan 1. Abnormal cardiac enzymes/elevated BNP level The patient does have an elevated BNP level of 275.3. This does raise concern of underlying cardiovascular disease with concerns of possible peripartum related cardiomyopathy and CHF. However, based upon her noninvasive evaluation thus far she appears to have overall preserved left ve ntricular size and systolic function as well as right ventricular size and systolic function. There are discussions in the literature with respect to elevations of BNP levels during and in the timeframe. With reports commenting about elevation of BNP P levels in -late with higher levels in the timeframe and otherwise healthy females due to changes in volume distribution and left ventricular stress with no obvious changes in left ventricular dysfunction. [place] there also comments in the literature about increasing BNP levels before bur through placental production and release into the maternal circulation. With comments about the highest elevations in the early period after delivery with highest levels of serum oxytocin. Thus there may be concerns, unless there is another etiology, but this may be related to the aforementioned findings reported in the / timeframe. 2. CHF The patient has been diagnosed with congestive heart failure in the past. In between her pregnancies she states that she had no cardiovascular issues or concerns or required ongoing medical evaluation or care. At the moment she does have an element of volume overload. Her overall cardiac status with respect to her left ventricular size and systolic function appears to be preserved as does her right ventricular size and systolic function. Thus there is some concern that her volume shifts are related to her as opposed to evidence of a peripartum cardiomyopathy with diminished LV systolic function and systolic mediated CHF. She appears to resolved her volume related issues with her IV diuretics. At the present time she appears to be returned to baseline status. 3. Preeclampsia She does have a history of preeclampsia. Again there is been reports of alterations in BNP levels with preeclampsia. Thus there is consideration that this may be related to her history of preeclampsia based on her lack of other cardiovascular findings at this time. At the moment she will continue to be monitored. She will continue her evaluation care as noted. 4. Intra-atrial shunt She does have a finding on her echocardiogram compatible with an interatrial shunt based on her agitated saline contrast study with right to left interatrial shunt potentially compatible with what may be a small PFO or ASD. Is unaware of this in the past. It may be reasonable at some point time when she is symptomatically improved/stable, etc. to consider further evaluation of her interatrial anatomy and physiology with a transesophageal echocardiogram. Overall, at the present time, she will continue without ongoing diuretic therapy. She will monitor her clinical course for any obvious recurrence of volume overload. If so she will notify her physicians and report back to the hospital. Otherwise she will be asked to have a future outpatient cardiovascular follow-up to reassess her status. This note was generated using a voice recognition system and there may be incorrect words, spelling or punctuation that were not noted when reviewing the office note prior to saving.
--- NOTE | 2020-02-05 12:53 | PN_ITS ---
Patient Problems: Active and Suspected Problems (Last Reviewed 01/30/20 @ 11:35 by Michelle Lundberg) Abnormal cardiac enzyme level (Acute) CHF (congestive heart failure) (Acute) Interatrial cardiac shunt (Acute) 38 weeks gestation of (Acute) COVID TESTING ORDERED 01/14/2020sc History of pre-eclampsia in prior , currently (Acute) low dose aspirin daily, 2x wkly BP check or daily if having BP cuff at home, wkly NST in our office History of congestive heart failure in adulthood (Acute) around first delivery, questionable. s/p cardio consult and MFM consult. undiagnosed preeclampsia and then went into congestive heart failure after delivery 06/21/08 AMA (advanced maternal age) multigravida 35+ (Acute) NIPT low risk. growth scan at 36 weeks History of delivery (Acute) plan RLTCS 02/01 at noon if no labor prior. previous cs x 2, NRFHTS. plan TOLAC, recommended epidural during labor to avoid tachycardia but desires minimal intervention Supervision of high risk , antepartum (Acute) PRR JOCELYNN 01/27/20 boy ivanna Schmid SHARMIN (Acute) nipt planned declined carrier and ntd. nl anatomy. NL growth 01/01 Subjective: Patient seen and examined. Feels much better today. Shortness of breath has completely resolved and swelling her lower extremities has gone down markedly. Review of symptoms otherwise negative. She has remained hemodynamically stable. Vitals/I&O's: Vital Signs Temp Pulse Resp BP Pulse Ox 98.6 F 111 H 16 123/76 H 98 02/05/20 09:30 02/05/20 09:30 02/05/20 09:30 02/05/20 09:30 02/05/20 09:30 Oxygen Delivery Method Room Air Weight: 167 lb 5.294 oz Body Mass Index (BMI) 30.4 Intake and Output for Last 24 Hours 02/03/20 02/04/20 02/05/20 23:59 23:59 23:59 Intake Total 500 / 500 910 / 910 Output Total 900 / 900 600 / 600 Balance -400 / -400 310 / 310 General: Alert, Oriented x3, Cooperative, No apparent distress HEENT: Atraumatic, PERRLA, EOMI, Normocephalic Oral: Moist Mucosa Neck: Supple, No JVD, Negative Carotid Bruits Lungs: - -Clear to auscultation. On room air. Cardiovascular: Normal S1, Normal S2, No murmurs, normal rate and rhythm Abdomen: Bowel Sounds Present, Soft, Non Tender, - - abdomen mildly distended, no tenderness. Suprapubic dressing in place, over CS site Extremities: No clubbing, No cyanosis,no edema Skin: No rashes, No breakdown Musculoskeletal: No Tenderness to Palpation of Joints or Extremities Lymphatic: No Cervical, Supraclavicular, or Inguinal Adenopathy Neurological: Cranial nerves II-XII grossly intact, Neuro grossly intact, Motor Exam 5/5 strength throughout Psych/Mental Status: Normal Affect, Appropriate, Alert and oriented to time, place, person, mood and affect Laboratory Results 02/05/20 05:10: Sodium 139, Potassium 3.7, Chloride 105, Carbon Dioxide 27.0, Anion Gap 7, BUN 17, Creatinine 0.69, Estim Creat Clear Calc 98.27, Est GFR (MDRD) Af Amer 125, Est GFR (MDRD) Non-Af 103, BUN/Creatinine Ratio 24.8 H, Glucose 77, Calcium 8.1 L STROKE Vital Signs/Narrative: Vital Signs Temp Pulse Resp BP Pulse Ox 02/05/20 09:30 98.6 F 111 H 16 123/76 H 98 Medical Necessity - Tobacco Use Smoking Status: Never smoker Assessment/Plan All Active Problems (Last Reviewed 01/30/20 @ 11:35 by Michelle Lundberg) Abnormal cardiac enzyme level (Acute) CHF (congestive heart failure) (Acute) Interatrial cardiac shunt (Acute) 38 weeks gestation of (Acute) History of pre-eclampsia in prior , currently (Acute) History of congestive heart failure in adulthood (Acute) AMA (advanced maternal age) multigravida 35+ (Acute) History of delivery (Acute) Supervision of high risk , antepartum (Acute) (Acute) Shortness of breath during (Resolved) Supervision of normal (Resolved) 34 y/o admitted with a complaint of shortness of breath #Acute post heart failurewith preserved EF * shortness of breath and lower extremity edema have completely resolved * 2D echo: EF of 70%, with trivial mitral and tricuspid valve insufficiency, with hypermobile atrial septum, and positive saline contrast study for right to left atrial shunt potentially compatible with small PFO vs ASD. * Cardiology on board * * # Post day 4 * delivered by CS 4 days ago. * Obstetrics on board * # Elevated BP * BP now down in the 120s systolic. * will monitor. * DVT prophylaxis; lovenox Disposition: * for DC home today. * I don't think patient needs any diuretics on discharge as her symptoms have fully resolved. * She says the last time it happened during her previous , she also did not need any diuretics upon discharge. 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 * Discussed with Dr. Jaquez Inpatient E&M: [id number] Subs Hosp L2
== END 2020-02-05 07:55 | disposition home or self-care (01) ==
LOC: ED 10:27 → PCU 14:00
PROVIDERS: Internal Medicine Cardiovascular Disease; Admitting Provider Obstetrics & Gynecology; Emergency Provider Student in an Organized Health Care Education/Training Program; Visit Provider Obstetrics & Gynecology
DX: O14.95 Unspecified pre-eclampsia, complicating the puerperium (principal); O26.893 Other specified pregnancy related conditions, third trimester; R06.02 Shortness of breath; R60.0 Localized edema; I08.1 Rheumatic disorders of both mitral and tricuspid valves; G40.909 Epilepsy, unspecified, not intractable, without status epilepticus; I50.9 Heart failure, unspecified
CPT/HCPCS: 36415; 71045; 71275; 80048; 80053; 80076; 81001; 83735; 83880; 84443; 84484; 85025; 85027; 93005; 93306; 96372; 96374; 96376; 97802; 99218; 99251; 99285; Q9967; A4216; G0378; G0463; J1940

== ENCOUNTER → 2020-03-25 | Outpatient (CLI) | payer MEDICAID, SELFPAY ==
[2020-03-25 08:56] VITALS: BMI 26.2
[2020-03-31 11:48] LABS: HPV APTIMA, High Risk Negative (Negative)
== END | disposition home or self-care (01) ==
LOC: LABSPEC 17:07
PROVIDERS: Referring Provider Obstetrics & Gynecology; Visit Provider Obstetrics & Gynecology
DX: Z12.4 Encounter for screening for malignant neoplasm of cervix (principal)
CPT/HCPCS: 87624; 88175; G0145

== ENCOUNTER → 2022-02-17 | Outpatient (CLI) | payer MEDICAID, SELFPAY ==
--- NOTE | 2022-02-17 10:09 | TELEMED_ITS ---
[facility] has confirmed receipt of a request for visit. This document confirms receipt of the order initiating the consult. To find the results of the consultation, please view the patient's reports for the scanned Telemed Consult.
--- NOTE | 2022-02-17 10:22 | MRI_ITS ---
STUDY: MRI BRAIN WITH AND WITHOUT CONTRAST REASON FOR EXAM: Female, 36 years old. Hx of epilepsy; seizure auras manifesting w/ panic TECHNIQUE: Standardized multiplanar fat and water weighted pulse sequences were obtained. IV 12cc Clariscan was administered for the contrast portion of the examination. COMPARISON: None. FINDINGS: Normal size of the ventricles and extra-axial spaces for the patient''s age. Normal white matter tracts of the supratentorial brain. Thin coronal sections through the limbic lobes are normal and symmetrical. Normal bilateral basal ganglia. Normal thalami. There is no extra-axial fluid accumulation. Normal flow voids within the major intracranial circulation suggesting patency by spin echo criteria. Normal venous enhancement. There is no enhancing intra-axial or extra-axial abnormality. Normal sella turcica, pituitary gland, infundibular stalk, optic chiasm and hypothalamus. Normal tectal plate and pineal gland. Normal midbrain, nellie and medulla. Normal cerebellum. Normal basal cisterns. Normal bilateral temporal bones. Normal bilateral internal auditory canals. No demonstrated orbital abnormality, within the constraints of a routine brain study. Normal visualized paranasal sinuses. Normal calvarium and skull base. Normal visualized soft tissue structures. Normal visualized upper cervical spine. MRI/Brain W/WO Contrast IMPRESSION: Normal unenhanced and enhanced MRI of the brain including the limbic lobes. Electronically Signed: Herve Brandt MD at 12:43 EDT ,
== END | disposition home or self-care (01) ==
PROVIDERS: Referring Provider Psychiatry & Neurology Neurology; Visit Provider Psychiatry & Neurology Neurology
DX: G40.909 Epilepsy, unspecified, not intractable, without status epilepticus (principal)
CPT/HCPCS: 70553; 95819; A9575

== ENCOUNTER → 2023-04-02 | Outpatient (CLI) | payer MEDICAID, SELFPAY ==
[2023-04-02 14:53] LABS: Absolute Lymphocyte Count 4.55 X10^3/uL (0.83-4.51); Absolute Neutrophil Count 7.3 X10^3/uL (2.0-7.7); Basophil# 0.05 X10^3/uL; Basophil% 0.4 % (0-1); Eosinophils% 1.6 % (0-5); Hematocrit 38.2 % (37-47); Hemoglobin 12.3 g/dL (12.0-15.0); Lymphocyte # 4.55 X10^3/ul (0.83-4.51); Lymphocyte % 35.5 % (19-41); Mean Corp Hgb Conc 32.2 g/dL (32-36); Mean Corpuscular Hgb 30.3 pg (27.0-32.0); Mean Corpuscular Volume 94.1 fL (81-99); Mean Platelet Vol. 11.1 fl (6.2-12.0); Monocyte# 0.65 X10^3/uL; Monocyte% 5.1 % (0-10); NRBC Flagged by Analyzer 0 % (0-5); Neutrophil # 7.32 X10^3/uL (2.7-7.7); Neutrophil % 57.1 % (47-70); POSITIVE MORPHOLOGY YES; Platelet Count 221 K/mm3 (150-450); RBC Distribution Width CV 13.2 % (11.6-14.6); RBC Distribution Width SD 45.7 fl (35.1-43.9); Red Blood Count 4.06 M/mm3 (4.2-5.4); White Blood Count 12.8 K/mm3 (4.4-11.0)
[2023-04-02 15:08] LABS: Differential Indicated SCAN CRITERIA MET
[2023-04-02 15:11] LABS: AST(SGOT) 12 U/L (15-37); Alanine Aminotransfer ALT/SGPT 19 U/L (13-56); Albumin, Serum 3.5 g/dL (3.2-5.0); Alkaline Phosphatase 54 U/L (45-117); Anion Gap 5 (5-15); BUN 13 mg/dL (7-18); BUN/Creat Ratio 20.7 RATIO (10-20); Calcium,Total 9.1 mg/dL (8.5-10.1); Chloride 107 mmol/L (98-107); Creatinine, Serum 0.63 mg/dL (0.55-1.02); EST Glomerular Filtration Rate 113 mL/min (>60); Est Glom Filt Rate - Afr Amer 136 mL/min (>60); Globulin 3.6 g/dL (2.2-4.2); Glucose 108 mg/dL (74-106); Potassium 3.5 mmol/L (3.5-5.1); Protein, Total 7.1 g/dL (6.4-8.2); Sodium Level 137 mmol/L (136-145)
[2023-04-02 15:16] LABS: Differential Comment SCANNED; Reactive Lymphocyte 1+
[2023-04-02 15:45] LABS: NATERA MAILED SPECIMEN
[2023-04-02 16:02] LABS: HIV - WCH Non-Reactive (Nonreactive); Hepatitis B Surface Antigen Non-Reactive (Nonreactive); Hepatitis C Antibody Non-Reactive (Nonreactive); Rubella IgG Reactive (Nonreactive); Syphilis Antibodies Non-reactive
[2023-04-04 21:07] LABS: Chlamydia By Nucleic Acid AMP Negative (Negative); Gonococcus By Nucleic Acid AMP Negative (Negative)
== END | disposition home or self-care (01) ==
PROVIDERS: Referring Provider Registered Nurse; Visit Provider Registered Nurse
DX: O09.299 Supervision of pregnancy with other poor reproductive or obstetric history, unspecified trimester (principal); Z3A.00 Weeks of gestation of pregnancy not specified
CPT/HCPCS: 82570; 84156; 36415; 80053; 85025; 86703; 86762; 86780; 86803; 86850; 86900; 86901; 87077; 87086; 87088; 87186; 87340; 87491; 87591

== ENCOUNTER → 2023-05-21 | Outpatient (CLI) | payer MEDICAID, SELFPAY ==
--- OUTSIDE RECORDS SUMMARY | 2023-05-21 14:40 | XMS RPT_ITS | CCD ---
Author Name Unknown Address [address] [place] [address] Organization [facility] Care Team Providers Care Teacher Asst Name Role Phone No, Physician Unavailable Unavailable Milton Eid Unavailable Unavailable Milton Eid Unavailable Unavailable Parth Rivera Unavailable Unavailable Parth Rivera Unavailable Unavailable No Doctor Assigned, Nodr Unavailable Unavail able JACQUIE AMADOR Unavailable Unavailable JACQUIE AMADOR Unavailable Unavailable JACQUIE AMADOR Unavailable Unavailable Unavailable Primary Care Provider Unavailbinta e Beata, Physician Primary Care Provider UnavailANTONIA Soriano Admitting Unavailbinta e ANTONIA SHARMA Attending Unavailable ANTONIA MENJIVAR Referring Unavailabl e BEATA, PHYSICIAN Primary Care Unavailable ANTONIA SHARMA Attending Unavailable NO, PHYSICIAN Primary Care Unavailable BEATA, PHYSICIAN Primary Care Unavailable MILTON EID Admitting Unavaila ble Medications Current Medications Medication Drug Class(es) Dates Sig (Normalized) Sig (Original) ferrous sulfate 325 mg oral tablet (4 sources) take 1 tablet by mouth once daily at breakfast ferrous sulfate 325 (65 FE) MG tablet Take 325 mg by mouth daily with breakfast. 0 Active folic acid 1 mg oral tablet (3 sources) take 1 tablet by mouth once daily folic acid (FOLVITE) 1 MG tablet Take 1 mg by mouth daily . 0 Active ibuprofen 600 mg oral tablet (1 source) Nonsteroidal Anti-inflammatory Drug Start: 09-27-2017 take 1 tablet by mouth every six hours as needed ibuprofen 600 MG Tab tablet Take 1 tablet by mouth every 6 hours as needed for Mild Pain (Take with food.) for up to 5 days. 15 tablet 0 09/27/2017 Active Vit-Fe Fumarate-FA ( VITAMIN PO) (2 sources) take 2 capsules by mouth once daily Vit-Fe Fumarate-FA ( VITAMIN PO) Take by mouth. Two capsules by mouth daily 0 Active Completed/Discontinued Medications Medication Drug Class(es) Dates Sig (Normalized) Sig (Original) levETIRAcetam 750 mg oral tablet (5 sources) Anti-epileptic Agent End: 12-08-2019 take 1 tablet by mouth four times daily levETIRAcetam (KEPPRA) 750 MG tablet Take 750 mg by mouth 4 (four) times a day. 0 12/08/2019 Discontinued (Discontinued by another clinician) Problems Active Problems Problem Classification Problem Date Documented Date Episodic/Chronic Epilepsy; convulsions (6 sources) Seizure disorder; Translations: [Epilepsy, unspecified, not intractable, without status epilepticus] Onset: 10-20-2014 10-20-2014 Chronic Other circulatory disease (2 sources) H/O: cardiovascular disease; Translations: [Personal history of other diseases of circulatory system] Episodic Other complications of (1 source) Gestational age unknown ; Translations: [ with fetus of unknown gestational age] Episodic Other and delivery including normal (1 source) Serum test positive; Translations: [Positive blood test] Episodic Residual codes; unclassified (2 sources) Swelling - edema - symptom; Translations: [Edema, unspecified type] Episodic Past or Other Problems Problem Classification Problem Date Documented Da te Episodic/Chronic Other complications of ; puerperium affecting management of mother (4 sources) delivery - delivered; Translations: [ delivery delivered] Onset: 10-20-2014 10-20-2014 Episodic Other complications of (3 sources) High risk ; Translations: [Supervision of high risk , unspecified, unspecified trimester] Episodic NEGATED: Highlighted row has been ruled out!Unclassified (2 sources) No known active problems Results Test Name Value Interpretation Reference Range Facil it Vital Signs Date Time Vital Sign Value Performing Clinician Iveth baker 01-12-2020 11:03-0400 BMI (Body Mass Index) 30.9 kg/m2 Antonia Sharma [facility] 01-12-2020 11:03-0400 Body weight 81.65 kg Antonia Sharma [facility] 01-12-2020 11:03-0400 BP Diastolic 72 mm[Hg] Antonia Sharma [facility] 01-12-2020 11:03-0400 BP Systolic 107 mm[Hg] Antonia Sharma [facility] 01-12-2020 11:03-0400 Pulse (Heart Rate) 88 /min Antonia Sharma [facility] 01-12-2020 11:03-0400 Pulse Oximetry 97 % Antonia Sharma [facility] 12-08-2019 09:08-0400 BMI (Body Mass Index) 29.08 kg/m2 Antonia Sharma [facility] 12-08-2019 09:08-0400 Body weight 76.84 kg Antonia Sharma [facility] 12-08-2019 09:08-0400 BP Diastolic 71 mm[Hg] Antonia Sharma [facility] 12-08-2019 09:08-0400 BP Systolic 108 mm[Hg] Antonia Sharma [facility] 12-08-2019 09:08-0400 Height 162.6 cm Antonia Sharma [facility] 12-08-2019 09:08-0400 Pulse (Heart Rate) 84 /min Antonia Sharma [facility] 12-08-2019 09:08-0400 Pulse Oximetry 98 % Antonia Sharma [facility] 07-01-2019 14:02-0400 BMI (Body Mass Index) 24.48 kg/m2 Sal Meghan Ont Fang Nurse [facility] 07-01-2019 14:02-0400 Body weight 62.69 kg Sal Meghan Ont Fang Nurse [facility] 07-01-2019 14:02-0400 BP Diastolic 72 mm[Hg] Sal Meghan Ont Fang Nurse [facility] 07-01-2019 14:02-0400 BP Systolic 119 mm[Hg] Sal Meghan Ont Fang Nurse [facility] 07-01-2019 14:02-0400 Height 160 cm Sal Meghan Ont Fang Nurse [facility] 07-01-2019 14:02-0400 Pulse (Heart Rate) 78 /min Sal Meghan Ont Fang Nurse [facility] Encounters Encounter Date Encounter Type Care Provider Facility Start: 03-15-2022 End: 03-19-2022 ambulatory PHYSICIAN [facility] Start: 01-12-2020 End: 01-12-2020 Patient encounter procedure ANTONIA SHARMA [facility] Start: 01-12-2020 End: 01-12-2020 Office outpatient visit 25 minutes Antonia Sharma Work Phone: [facility] Procedures Date Procedure Procedure Detail Performing Clinician Start: 12-12-2019 Echocardiography Antonia Crawley Tom Work Phone: Start: 12-08-2019 12 lead ECG Antonia Erum sawyer Tom Work Phone: Start: 07-01-2019 Narrative [Interpretation] Study observation [facility] Gwendoline Fang Work Phone: Start: 07-01-2019 Culture bacterial qu anttative colony count urine Gwendoline Fang Work Phone: Start: 07-01-2019 Urine drug screening Gw endoline Fang Work Phone: Start: 06-25-2019 Antibody screen Plan of Treatment Date Care Activity Detail Author Start: 02-09-2020 End: 02-09-2020 Office Visit 02/09/2020 Office Visit Cardiology Antonia Sharma MD [address] [place] [address] [phone] [facility] Start: 01-12-2020 End: 01-12-2020 Office Visit 01/12/2020 Office Visit Cardiology Antonia Sharma MD [address] [place], [place] [id number] [facility] Start: 12-16-2019 Influenza vaccination given Sequential Influenza Vaccine (#1) [facility] Start: 12-12-2019 End: 12-12-2019 Appointment 12/12/2019 Appointment Cardiology Antonia Sharma MD [address] [place], [place] [id number] [facility] Start: 12-08-2019 End: 02-06-2021 Echocardiography Echocardiogram complete Echocardiography Routine Personal history of other diseases of circulatory system Supervision Of High Risk , Unspecified, Unspecified Trimester Edema, Unspecified Type Expected: 12/08/2019, Expires: 02/06/2021 [facility] Payers Date Payer Category Payer Unknown CARESOLUANA SANCHEZAlexis MELENDEZ xxxxxxxxxxx 2017-Present xxxxxxxxxxx [id number] 2014 Unknown 2013 Medicaid [employer] [facility] [place] [facility] [place] [id number] 2013-Present [id number] 2013 Unknown [id number] 1984 Unknown [id number] 1984 Unknown [id number] 1984 Unknown [id number] Social History Date Type Detail Facility Start: 12-03-2015 End: 01-12-2020 Tobacco smoking status [facility] Never smoker [facility] Sex Assigned At Not on file [facility] Start: 07-01-2019 End: 01-12-2020 Alcohol intake Current non-drinker of alcohol (finding) [facility] Start: 12-08-2019 End: 01-12-2020 Tobacco use and exposure Never used [facility] Exposure to SARS-CoV -2 (event) Not sure [facility] Summary Purpose Family History No Family History Records FoundNo Family History Records FoundNo Family History Records FoundNo Family History Records FoundNo Family History Records FoundNo Family History Records FoundNo Family History Records Found Advance Directives No Advanced Directives Records FoundDocuments on File Type Date Recorded Patient Supervisor Network Control Operators Expl anation Advance Directives and Living Will Latest Code Status on File Code Status Date Activated Date Inactivated Comments Full Code 10/21/2014 2:46 AM 10/23/2014 5:12 PM Full Code 10/20/2014 8:34 PM 10/21/2014 2:46 AM Documents on File Type Date Recorded Patient Supervisor Network Control Operators Expl anation Advance Directives and Livin g Will 12/12/2019 3:45 PM Documents on File Type Date Recorded Patient Supervisor Network Control Operators Expl anation Advance Directives and Livin g Will 12/12/2019 3:45 PM Latest Code Status on File Code Status Date Activated Date Inactivated Comments Full Code 10/21/2014 2:46 AM 10/23/2014 5:12 PM Full Code 10/20/2014 8:34 PM 10/21/2014 2:46 AM Assessments Diagnosis Positive blood test Diagnosis with fetus of unknown gestational age Diagnosis Edema, unspecified type- Primary Personal history of other diseases of circulatory system Supervision of high risk , unspecified, unspecified trimester Diagnosis Personal history of other diseases of circulatory system Supervision of high risk , unspecified, unspecified trimester Edema, unspecified type Diagnosis Supervision of high risk , unspecified, unspecified trimester- Primary Reason for Referral Status Reason Specialty Diagnoses / Procedures Referred By Contact Referred To Contact New Request Cardiology Diagnoses Personal history of other diseases of circulatory system Supervision of high risk , unspecified, unspecified trimester Edema, unspecified type Procedures Echocardiogram complete Antonia Sharma MD [address] [place] [address] Status Reason Specialty Diagnoses / Procedures Referre d By Contact Referred To Contact Closed Cardiology Diagnoses Personal history of other diseases of circulatory system Supervision of high risk , unspecified, unspecified trimester Edema, unspecified type Procedures Echocardiogram complete Antonia Sharma MD [address] [place] [id number] Instructions * Patient Instructions* Sanam Salazar RN - 12/08/2019 9:02 AM EDT Provider: Dr. Antonia Sharma Nurse: HERLINDA Chambers, RN documented in this encounter* Patient Instructions* Joana Jha RN - 01/12/2020 11:20 AM EDT Provider: Dr. Antonia Sharma Nurse: HERLINDA Chambers, RN documented in this encounter History of Present Illness * Antonia Sharma MD - 12/08/2019 9:15 AM EDT OFFICE CONSULTATION NOTE [facility] [address]LEJ[address] ([address]) [facility] [address] [facility] [address] Physicians: Physician No (Family); Antonia Menjivar, * (Referring) Subjective: I had the pleasure of seeing Ms. Marium Osei at the [facility] [place] office on 12/08/2019. Ms. Osei is a 34 y.o. female who presents today for her cardiac evaluation in the setting of . She is currently 32-6/7ths weeks with an JOCELYNN 01/27/2020. First (2008)--swelling, rapid weight gain during last few weeks of , bp not significant elevated, ended up with (12 hours attempted vaginal delivery), discharged PPD# 3, home for approximately 24 hours, came back with visual disturbances and orthopnea. Was still very swollen when she went home. Hospitalized 3 more days. Did not require cardiac meds at discharge. Second 2014--no issues, repeat Both pregnancies were full term This --has recently had some weight gain (monitors daily), BP has been normal, no swelling, denies dizziness, lightheadedness, no chest pain, no orthopnea, PND, no palpitations. 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) Hypertension Past Surgical History: Procedure Laterality Date SECTION N/A 10/20/2014 Procedure: SECTION; Surgeon: Mallory Rosa MD; Location: [facility]; Service: SECTION, LOW TRANSVERSE TONSILECTOMY, ADENOIDECTOMY, BILATERAL MYRINGOTOMY AND TUBES Family History Problem Relation Age of Onset Hypertension Father --No congenital heart disease, CAD, PPM/ICD, CHF Social History Tobacco Use Smoking status: Never Smoker Smokeless tobacco: Never Used Substance Use Topics Alcohol use: No Drug use: No Outpatient Medications as of 12/08/2019 Medication Sig ferrous sulfate 325 (65 FE) MG tablet Take 325 mg by mouth daily with breakfast. folic acid (FOLVITE) 1 MG tablet Take 1 mg by mouth daily . [DISCONTINUED] levETIRAcetam (KEPPRA) 750 MG tablet Take 750 mg by mouth 4 (four) times a day. [DISCONTINUED] PNV WITH CA,NO.72/IRON/FA ( VITAMINS LOW IRON ORAL) Take by mouth. No Known Allergies Review of Systems Constitution: Positive for weight gain. Negative for chills, decreased appetite, diaphoresis, malaise/fatigue and weight loss. HENT: Negative for nosebleeds. Cardiovascular: See HPI Respiratory: Negative for cough, shortness of breath, sleep disturbances due to breathing and snoring. Endocrine: Negative for cold intolerance and heat intolerance. Hematologic/Lymphatic: Does not bruise/bleed easily. Gastrointestinal: Negative for heartburn, hematemesis, hematochezia, melena, nausea and vomiting. Genitourinary: Positive for frequency, missed menses, nocturia and urgency. Neurological: Negative for excessive daytime sleepiness, focal weakness, light- headedness and paresthesias. All other systems reviewed and are negative. Objective: Vitals: BP 108/71 Pulse 84 Ht 5' 4 Wt 76.8 kg (169 lb 6.4 oz) SpO2 98% BMI 29.08 kg/m Physical Exam Constitutional: She is oriented to person, place, and time. She appears well- developed and well-nourished. No distress. HENT: Head: Normocephalic and atraumatic. Nose: Nose normal. Mouth/Throat: Oropharynx is clear and moist. Eyes: Conjunctivae and EOM are normal. No scleral icterus. Neck: Neck supple. No JVD present. Carotid bruit is not present. No tracheal deviation present. Cardiovascular: Normal rate, regular rhythm, S1 normal, S2 normal and intact distal pulses. No extrasystoles are present. PMI is not displaced. Exam reveals no gallop, no distant heart sounds, no friction rub and no midsystolic click. No murmur heard. Pulses: Carotid pulses are 2+ on the right side and 2+ on the left side. Radial pulses are 2+ on the right side and 2+ on the left side. Posterior tibial pulses are 2+ on the right side and 2+ on the left side. Pulmonary/Chest: Effort normal and breath sounds normal. She has no wheezes. She has no rales. Abdominal: Soft. There is no abdominal tenderness. Gravid. Musculoskeletal: General: No edema. Neurological: She is alert and oriented to person, place, and time. No cranial nerve deficit. Skin: Skin is warm and dry. No rash noted. No erythema. Psychiatric: She has a normal mood and affect. Vitals reviewed. ECG (12/08/2019): Normal sinus rhythm with normal LA and QT intervals. There is no evidence of ischemia, infarction, hypertrophy or pre-excitation noted. Assessment & Plan: Ms. Osei is a 34 year old female who presents today for further cardiac evaluation in the setting of . She is currently 32-6/7ths weeks with an JOCELYNN of 01/27/2020. Her first was complicated by volume overload likely due to diastolic dysfunction and possible preeclampsia. Her second was uncomplicated from cardiovascular standpoint. Her heart rate and blood pressure are acceptable today on no medications. She clinically appears euvolemic. An electrocardiogram today shows sinus rhythm with no acute ST or T wave abnormalities. I reviewed at length with Ms. Osei regarding the cardiovascular effects of and the potential events that occurred in her first . It does not appear that she had an actual peripartum cardiomyopathy, but rather volume overload in the setting of diastolic dysfunction and possible preeclampsia. Her second was uncomplicated. However, Ms. Osei is interested in pursuing an attempt at vaginal delivery after . Based on today's clinical evaluation, Ms. Osei would be at an acceptable risk for either a vaginal delivery or as indicated from an obstetrical standpoint without cardiovascular monitoring. However, we will check an echocardiogram given theevents that occurred with her first . Regardless of her echocardiogram findings, Ms. Osei does appear to be sensitive to volume overload and care should be taken when administering IV fluids during labor and delivery. If IV fluids are necessary, would do this in a slow controlled manner as opposed to bolus IV fluid resuscitation which would increase her risk for volume overload. Would also transition to oral hydration as soon as possible with discontinuation of IV fluids. Ms. Osei is currently self limited in her activities. She may engage in daily aerobic activity astolerated for long-term cardiovascular health. Based on the most recent ACC/AHA guidelines, Ms. Osei does not require SBE prophylaxis prior to dental, GI, or procedures. I will follow-up with Ms. Osei in 4 weeks to reassess her volume status prior to delivery; however, if she has any concerns before that time, she will contact us for further evaluation. Antonia Sharma MD, FACC 12/08/2019 documented in this encounter* Antonia Sharma MD - 12/12/2019 4:00 PM EDT Results acceptable, heart function appears normal and there are no significant heart valve problems. No change in previous recommendations, follow-up as scheduled. Please notify patient. documented in this encounter* Antonia Sharma MD - 01/12/2020 11:00 AM EDT OFFICE CONSULTATION NOTE [facility] [address] (11) [facility] [address] [facility] [address] Physicians: Physician No (Family); No ref. provider found (Referring) Subjective: I had the pleasure of seeing Ms. Marium Osei at the [facility] [place] office on 01/12/2020. Ms. Osei is a 34 y.o. female who presents today for routine cardiology follow-up in the setting of . She is currently 37-6/7ths weeks with an JOCELYNN 01/27/2020. I initially met Ms. Osei in November 2019 at which time she clinically appears euvolemic. She was set up for an echocardiogram which showed preserved biventricular systolic function with no hemodynamically significant valvular disease. She presents today for routine follow-up. Since her last visit, Ms. Osei has done relatively well. However, earlier this week, she did awaken with palpitations and felt that her blood pressure was elevated at around 140. She did seek medical attention at that time. She was monitored in labor and delivery triage for several hours and thendischarged home. Her blood pressure did come down without intervention. She is planning an attempt at vaginal delivery. Other than this episode, she has done relatively well from a cardiovascular standpoint denying peripheral edema, orthopnea, or PND. She notes no dizziness, lightheadedness, or syncope. She denies chest pain. She does note palpitations with activity. She feels her weight has been increasing. First (2008)--swelling, rapid weight gain during last few weeks of , bp not significant elevated, ended up with (12 hours attempted vaginal delivery), discharged PPD# 3, home for approximately 24 hours, came back with visual disturbances and orthopnea. Was still very swollen when she went home. Hospitalized 3 more days. Did not require cardiac meds at discharge. 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) Hypertension Past Surgical History: Procedure Laterality Date SECTION N/A 10/20/2014 Procedure: SECTION; Surgeon: Mallory Rosa MD; Location: [facility]; Service: SECTION, LOW TRANSVERSE TONSILECTOMY, ADENOIDECTOMY, BILATERAL MYRINGOTOMY AND TUBES Family History Problem Relation Age of Onset Hypertension Father --No congenital heart disease, CAD, PPM/ICD, CHF Social History Tobacco Use Smoking status: Never Smoker Smokeless tobacco: Never Used Substance Use Topics Alcohol use: No Drug use: No Outpatient Medications as of 01/12/2020 Medication Sig ferrous sulfate 325 (65 FE) MG tablet Take 325 mg by mouth daily with breakfast. folic acid (FOLVITE) 1 MG tablet Take 1 mg by mouth daily . No Known Allergies Review of Systems Constitution: Positive for weight gain. Negative for chills, decreased appetite, diaphoresis, malaise/fatigue and weight loss. HENT: Negative for nosebleeds. Cardiovascular: See HPI Respiratory: Negative for cough, shortness of breath, sleep disturbances due to breathing and snoring. Endocrine: Negative for cold intolerance and heat intolerance. Hematologic/Lymphatic: Does not bruise/bleed easily. Gastrointestinal: Negative for heartburn, hematemesis, hematochezia, melena, nausea and vomiting. Genitourinary: Positive for frequency, missed menses, nocturia and urgency. Neurological: Negative for excessive daytime sleepiness, focal weakness, light- headedness and paresthesias. All other systems reviewed and are negative. Objective: Vitals: BP 107/72 Pulse 88 Wt 81.6 kg (180 lb) SpO2 97% BMI 30.90 kg/m Physical Exam Constitutional: She is oriented to person, place, and time. She appears well- developed and well-nourished. No distress. HENT: Head: Normocephalic and atraumatic. Nose: Nose normal. Mouth/Throat: Oropharynx is clear and moist. Eyes: Conjunctivae and EOM are normal. No scleral icterus. Neck: Neck supple. No JVD present. Carotid bruit is not present. No tracheal deviation present. Cardiovascular: Normal rate, regular rhythm, S1 normal, S2 normal and intact distal pulses. No extrasystoles are present. PMI is not displaced. Exam reveals no gallop, no distant heart sounds, no friction rub and no midsystolic click. No murmur heard. Pulses: Carotid pulses are 2+ on the right side and 2+ on the left side. Radial pulses are 2+ on the right side and 2+ on the left side. Posterior tibial pulses are 2+ on the right side and 2+ on the left side. Pulmonary/Chest: Effort normal and breath sounds normal. She has no wheezes. She has no rales. Abdominal: Soft. There is no abdominal tenderness. Gravid. Musculoskeletal: General: No edema. Neurological: She is alert and oriented to person, place, and time. No cranial nerve deficit. Skin: Skin is warm and dry. No rash noted. No erythema. Psychiatric: She has a normal mood and affect. Vitals reviewed. ECG (12/08/2019): Normal sinus rhythm with normal LA and QT intervals. There is no evidence of ischemia, infarction, hypertrophy or pre-excitation noted. Echo (12/12/2019): 1. Normal left ventricular size with hyperdynamic systolic function, LVEF by biplane measurement 70%. 2. Normal diastolic filling. 3. No hemodynamically significant valvular disease. Estimated RVSP 20 mmHg. 4. No pericardial effusion. Assessment & Plan: Ms. Osei is a 34 year old female who presents today for further cardiac evaluation in the setting of . She is currently 37-6/7ths weeks with an JOCELYNN of 01/27/2020. Her first was complicated by volume overload likely due to diastolic dysfunction and possible preeclampsia. Her second was uncomplicated from cardiovascular standpoint. Her heart rate and blood pressure are acceptable today on no medications. She clinically appears euvolemic. An electrocardiogram today shows sinus rhythm with no acute ST or T wave abnormalities. An echocardiogram from November 2019 shows preserved biventricular function with no hemodynamically significant valvular disease. I reviewed with Ms. Osei regarding the cardiovascular effects of and the potential events that occurred in her first . It does not appear that she had an actual peripartum cardiomyopathy, but rather volume overload in the setting of diastolic dysfunction and possible preeclampsia. Her second was uncomplicated. However, Ms. Osei is interested in pursuing an attemptat vaginal delivery after . Based on today's clinical evaluation and her previous cardiovascular testing, Ms. Osei would be at an acceptable risk for either a vaginal delivery or C-sectionas indicated from an obstetrical standpoint without cardiovascular monitoring. Ms. Osei does appear to be sensitive to volume overload and care should be taken when administering IV fluids during labor and delivery. If IV fluids are necessary, would do this in a slow controlled manner as opposed to bolus IV fluid resuscitation which would increase her risk for volume overload. Would also transition to oral hydration as soon as possible with discontinuation of IV fluids. Ms. Osei is currently self limited in her activities. She may engage in daily aerobic activity astolerated for long-term cardiovascular health. Based on the most recent ACC/AHA guidelines, Ms. Osei does not require SBE prophylaxis prior to dental, GI, or procedures. I will follow-up with Ms. Osei in 4 weeks to reassess her volume status following delivery; however, if she has any concerns before that time, she will contact us for further evaluation. Antonia Sharma MD, FACC 01/12/2020 documented in this encounter Additional Source Comments INFORMATION SOURCE (unrecogn ized section and content) DATE CREATED AUTHOR AUTHOR'S ORGANIZ ATION 10/04/2017 [facility] DATE CREATED AUTHOR AUTHOR'S ORGANIZ ATION 10/09/2017 [facility] DATE CREATED AUTHOR AUTHOR'S ORGANIZ ATION 07/03/2019 [facility] DATE CREATED AUTHOR AUTHOR'S ORGANIZ ATION 11/14/2019 [facility] DATE CREATED AUTHOR AUTHOR'S ORGANIZ ATION 01/12/2020 [facility] DATE CREATED AUTHOR AUTHOR'S ORGANIZ ATION 03/19/2022 [facility] Reason for Visit (unrecogniz ed section and content) Reason Comments Here for nurse visit for positive confirmation visit for labs and dating U/S today. Beta quant of [phone] on 06/25/19.LMP 04/22/2019.EDC 01/27/20. education material reviewed with patient.Has started OTC vitamin.Discontinued Keppra three months ago when started trying to conceive. Status Reason Specialty Diagnoses / Procedures Referre d By Contact Referred To Contact Closed Diagnoses with fetus of unknown gestational age Procedures US OB DATING ABDOMINAL < 14WEEKS US OB TRANSVAGINAL/DATING Loren Rubin MD [address] [place] [address] Reason Comments Establish Care Patient is a new pat ient consult, she was ref by her OBGYN Leonid Knight for high risk . Status Reason Specialty Diagnoses / Procedures Referre d By Contact Referred To Contact Closed Cardiology Diagnoses Personal history of other diseases of circulatory system Supervision of high risk , unspecified, unspecified trimester Antonia Menjivar MD [address] [address] [facility] [address] [facility] [place] [address] Status Reason Specialty Diagnoses / Procedures Referre d By Contact Referred To Contact Closed Cardiology Diagnoses Personal history of other diseases of circulatory system Supervision of high risk , unspecified, unspecified trimester Edema, unspecified type Procedures Echocardiogram complete Antonia Sharma MD [address] [place] [address] Reason Comments Follow-up review echo, no othe r concerns FOR RECORDS PERTAINING TO PATIENTS WHO ARE OR HAVE BEEN ENROLLED IN A CHEMICAL DEPENDENCY/SUBSTANCEABUSE PROGRAM, SOME INFORMATION MAY BE OMITTED. This clinical summary was aggregated from multiple sources. Caution should be exercised in using it in the provision of clinical care. This summary normalizes information from multiple sources, and as a consequence, information in this document may materially change the coding, format and clinical context of patient data. In addition, data may be omitted in some cases. CLINICAL DECISIONS SHOULD BE BASED ON THE PRIMARY CLINICAL RECORDS. [facility] [employer] [facility]. provides no warranty or guarantee of the accuracy or completeness of information in this document.
[2023-05-21 15:24] LABS: Protein, Urine (Random) 7.2 mg/dL (<11.9); Protein:Creat Ratio 300 mg/g CRE (0-200)
== END | disposition home or self-care (01) ==
LOC: LABSPEC 13:48
PROVIDERS: Visit Provider Obstetrics & Gynecology
DX: O09.299 Supervision of pregnancy with other poor reproductive or obstetric history, unspecified trimester (principal); Z3A.00 Weeks of gestation of pregnancy not specified
CPT/HCPCS: 82570; 84156

== ENCOUNTER → 2023-05-28 | Outpatient (CLI) | payer MEDICAID, SELFPAY ==
--- OUTSIDE RECORDS SUMMARY | 2023-05-28 09:59 | XMS RPT_ITS | CCD ---
Author Name Unknown Address [address] [place] [address] Organization [facility] Care Team Providers Care Resist Coater Developer Name Role Phone No, Physician Unavailable Unavailable Milton Eid Unavailable Unavailable Milton Eid Unavailable Unavailable Parth Rivera Unavailable Unavailable Parth Rivera Unavailable Unavailable No Doctor Assigned, Nodr Unavailable Unavail able JACQUIE AMADOR Unavailable Unavailable MARJORIEJACQUIE Unavailable Unavailable MARJORIEJACQUIE Unavailable Unavailable Unavailable Primary Care Provider Unavailabl e No, Physician Primary Care Provider UnavailANTONIA Soriano Admitting Unavailabl e ANTONIA SHARMA Attending Unavailable ANTONIA MENJIVAR Referring Unavailabl e NIGEL, PHYSICIAN Primary Care Unavailable ANTONIA SHAMRA Attending Unavailable NO, PHYSICIAN Primary Care Unavailable NIGEL, PHYSICIAN Primary Care Unavailable MILTON EID Admitting Unavaila ble NO PRIMARY CARE, Primary Care Unavailable YIN CABRAL Referring Unavailable ANDREWS JUNIOR Attending Unavailable Medications Current Medications Medication Drug Class(es) Dates [...] Test Name Value Interpretation Reference Range Facil ity Vital Signs Date Time Vital Sign Value Performing Clinician Iveth baker 01-12-2020 11:03-0400 BMI (Body Mass Index) 30.9 kg/m2 Antonia Sharma [facility] 01-12-2020 11:03-0400 Body weight 81.65 kg Antonia Sharma [facility] 01-12-2020 11:03-0400 BP Diastolic 72 mm[Hg] Antonia Sharma [facility] 01-12-2020 11:03-0400 BP Systolic 107 mm[Hg] Antonia Sharma [facility] 01-12-2020 11:03-0400 Pulse (Heart Rate) 88 /min Antonia Sharma [facility] 01-12-2020 11:03-0400 Pulse Oximetry 97 % Antonia Sharma [facility] 12-08-2019 09:08-0400 BMI (Body Mass Index) 29.08 kg/m2 Antonia Sharma [facility] 12-08-2019 09:08-0400 Body weight 76.84 kg Antonia Sharma [facility] 12-08-2019 09:08-0400 BP Diastolic 71 mm[Hg] Antonia Sharma [facility] 12-08-2019 09:08-0400 BP Systolic 108 mm[Hg] Antonia Sharma [facility] 12-08-2019 09:08-0400 Height 162.6 cm Antonia Sharma [facility] 12-08-2019 09:08-0400 Pulse (Heart Rate) 84 /min Antonia Sharma [facility] 12-08-2019 09:08-0400 Pulse Oximetry 98 % Antonia Sharma [facility] 07-01-2019 14:02-0400 BMI (Body Mass Index) 24.48 kg/m2 Sal Meghan Ont Fang Nurse [facility] 07-01-2019 14:02-0400 Body weight 62.69 kg Sal Meghan Ont Fang Nurse [facility] 07-01-2019 14:02-0400 BP Diastolic 72 mm[Hg] Sal Meghan Ont Fang Nurse [facility] 07-01-2019 14:02-0400 BP Systolic 119 mm[Hg] Sal Meghan Ont Fang Nurse [facility] 07-01-2019 14:02-0400 Height 160 cm Sal Meghan Ont Fang Nurse [facility] 07-01-2019 14:02-0400 Pulse (Heart Rate) 78 /min Sal Meghan Ont Fang Nurse [facility] Encounters Encounter Date Encounter Type Care Provider Facility Start: 05-24-2023 End: 05-24-2023 ambulatory MD NO PRIMARY CARE [facility] Start: 03-15-2022 End: 03-19-2022 ambulatory PHYSICIAN NO [facility] Start: 01-12-2020 End: 01-12-2020 Patient encounter procedure ANTONIA SHARMA [facility] Start: 01-12-2020 End: 01-12-2020 Office outpatient visit 25 minutes Antonia Sharma Work Phone: [facility] Procedures Date Procedure Procedure Detail Performing Clinician Start: 12-12-2019 Echocardiography Antonia Denisa Tom Work Phone: Start: 12-08-2019 12 lead ECG Antonia Erum Toledole Work Phone: Start: 07-01-2019 Narrative [Interpretation] Study observation general US Gwendoline Fang Work Phone: Start: 07-01-2019 Culture bacterial qu anttative colony count urine Gwendoline Fang Work Phone: Start: 07-01-2019 Urine drug screening Gw endoline Fang Work Phone: Start: 06-25-2019 Antibody screen Plan of Treatment Date Care Activity Detail Author Start: 02-09-2020 End: 02-09-2020 Office Visit 02/09/2020 Office Visit Cardiology Antonia Sharma MD [address] [place] [address] [phone] [facility] Start: 01-12-2020 End: 01-12-2020 Office Visit 01/12/2020 Office Visit Cardiology Antonia Sharma MD [address] [place], [place] [id number] [facility] Start: 12-16-2019 Influenza vaccination given Sequential Influenza Vaccine (#1) [facility] Start: 12-12-2019 End: 12-12-2019 Appointment 12/12/2019 Appointment Cardiology Antonia Sharma MD [address] [place], [place] [phone] [facility] Start: 12-08-2019 End: 02-06-2021 Echocardiography Echocardiogram complete Echocardiography Routine Personal history of other diseases of circulatory system Supervision Of High Risk , Unspecified, Unspecified Trimester Edema, Unspecified Type Expected: 12/08/2019, Expires: 02/06/2021 [facility] Payers Date Payer Category Payer Unknown [employer] [place] [place] xxxxxxxxxxx 2017-Present xxxxxxxxxxx [id number] 2014 Unknown 2013 Medicaid [employer] [id number] 2013-Present [id number] 2013 Unknown [id number] 1984 Unknown [id number] 1984 Unknown [id number] 1984 Unknown [id number] 1984 Unknown [id number] Unknown [id number] Social History Date Type Detail Facility Start: 12-03-2015 End: 01-12-2020 Tobacco smoking status [facility] Never smoker [facility] Sex Assigned At Not on file [facility] Start: 07-01-2019 End: 01-12-2020 Alcohol intake Current non-drinker of alcohol (finding) [facility] Start: 12-08-2019 End: 01-12-2020 Tobacco use and exposure Never used [facility] Exposure to SARS-CoV -2 (event) Not sure [facility] Summary Purpose Family History No Family History Records FoundNo Family History Records FoundNo Family History Records FoundNo Family History Records FoundNo Family History Records FoundNo Family History Records FoundNo Family History Records Found Advance Directives No Advanced Directives Records FoundDocuments on File Type Date Recorded Patient Surveillance Operator Expl anation Advance Directives and Living Will Latest Code Status on File Code Status Date Activated Date Inactivated Comments Full Code 10/21/2014 2:46 AM 10/23/2014 5:12 PM Full Code 10/20/2014 8:34 PM 10/21/2014 2:46 AM Documents on File Type Date Recorded Patient Surveillance Operator Expl anation Advance Directives and Livin g Will 12/12/2019 3:45 PM Documents on File Type Date Recorded Patient Surveillance Operator Expl anation Advance Directives and Livin g [...] Procedures Echocardiogram complete Antonia Sharma MD [address] [place] [address] Status Reason Specialty Diagnoses / Procedures Referre d By Contact Referred To Contact Closed Cardiology Diagnoses Personal history of other diseases of circulatory system Supervision of high risk , unspecified, unspecified trimester Edema, unspecified type Procedures Echocardiogram complete Antonia Sharma MD [address] [place] [address] Instructions * Patient Instructions* Sanam Salazar RN - 12/08/2019 9:02 AM EDT Provider: Dr. Antonia Sharma Nurse: HERLINDA Chambers, RN documented in this encounter* Patient Instructions* Joana Jha RN - 01/12/2020 11:20 AM EDT Provider: Dr. Antonia Sharma Nurse: HERLINDA Chambers, RN documented in this encounter History of Present Illness * Antonia Sharma MD - 12/08/2019 9:15 AM EDT OFFICE CONSULTATION NOTE [facility] [address]) [facility] [address] [facility] [address] Physicians: Physician No (Family); Antonia Menjivar, * (Referring) Subjective: I had the pleasure of seeing Ms. Marium Osei at the [facility] [place] office on 12/08/2019. Ms. Osei is a [...] Procedure: SECTION; Surgeon: Mallory Rosa MD; [facility]; Service: SECTION, LOW TRANSVERSE TONSILECTOMY, [...] ECG (12/08/2019): Normal sinus rhythm with normal [place] and QT intervals. There is no evidence [...] 01/12/2020 11:00 AM EDT OFFICE CONSULTATION NOTE [facility] [address] ([address]) [facility] [address] [facility] [address] Physicians: Physician No (Family); No ref. provider found (Referring) Subjective: I had the pleasure of seeing Ms. Marimu Osei at the [facility] [place] office on 01/12/2020. Ms. Osei is a [...] SECTION N/A 10/20/2014 Procedure: SECTION; Surgeon: Mallory Roas MD; [facility]; Service: SECTION, LOW TRANSVERSE TONSILECTOMY, [...] ECG (12/08/2019): Normal sinus rhythm with normal W[place] and QT intervals. There is no evidence [...] DATE CREATED AUTHOR AUTHOR'S ORGANIZ ATION 10/04/2017 [facility] DATE CREATED AUTHOR AUTHOR'S ORGANIZ ATION 10/09/2017 [facility] DATE CREATED AUTHOR AUTHOR'S ORGANIZ ATION 07/03/2019 [facility] DATE CREATED AUTHOR AUTHOR'S ORGANIZ ATION 01/12/2020 [facility] DATE CREATED AUTHOR AUTHOR'S ORGANIZ ATION 03/19/2022 [facility] DATE CREATED AUTHOR AUTHOR'S ORGANIZ ATION 05/26/2023 [facility] Reason for Visit (unrecogniz ed section and [...] US OB TRANSVAGINAL/DATING Loren Rubin MD [address] [place] [address] Reason Comments Establish Care Patient is a new pat ient consult, she was ref by her OBGYN Leonid Knight for high risk . Status Reason Specialty Diagnoses / Procedures Referre d By Contact Referred To Contact Closed Cardiology Diagnoses Personal history of other diseases of circulatory system Supervision of high risk , unspecified, unspecified trimester Antonia Menjivar MD [address] [address] [facility] [address] [facility] [place] [address] Status Reason Specialty Diagnoses / Procedures Referre d By Contact Referred To Contact Closed Cardiology Diagnoses Personal history of other diseases of circulatory system Supervision of high risk , unspecified, unspecified trimester Edema, unspecified type Procedures Echocardiogram complete TomAntonia amos MD [address] [place] [address] Reason Comments Follow-up review echo, no othe [...] BE BASED ON THE PRIMARY CLINICAL RECORDS. [facility]. provides no warranty or guarantee of the accuracy or completeness of information in this document.
[2023-05-28 10:10] LABS: Absolute Lymphocyte Count 4.63 X10^3/uL (0.83-4.51); Basophil# 0.03 X10^3/uL; Basophil% 0.2 % (0-1); Eosinophil# 0.12 X10^3/uL; Hematocrit 34.6 % (37-47); Hemoglobin 11.3 g/dL (12.0-15.0); Lymphocyte # 4.63 X10^3/ul (0.83-4.51); Lymphocyte % 36.9 % (19-41); Mean Corp Hgb Conc 32.7 g/dL (32-36); Mean Corpuscular Hgb 31.3 pg (27.0-32.0); Mean Corpuscular Volume 95.8 fL (81-99); Mean Platelet Vol. 11.5 fl (6.2-12.0); Monocyte# 0.73 X10^3/uL; Monocyte% 5.8 % (0-10); NRBC Flagged by Analyzer 0 % (0-5); Neutrophil # 6.98 X10^3/uL (2.7-7.7); Neutrophil % 55.6 % (47-70); Platelet Count 209 K/mm3 (150-450); RBC Distribution Width CV 13.7 % (11.6-14.6); RBC Distribution Width SD 48.1 fl (35.1-43.9); Red Blood Count 3.61 M/mm3 (4.2-5.4); White Blood Count 12.6 K/mm3 (4.4-11.0)
[2023-05-28 12:53] LABS: ALB/GLOB Ratio 0.9 RATIO (0.9-2.4); AST(SGOT) 11 U/L (15-37); Alanine Aminotransfer ALT/SGPT 15 U/L (13-56); Alkaline Phosphatase 52 U/L (45-117); Anion Gap 5 (5-15); BUN 9 mg/dL (7-18); BUN/Creat Ratio 13.7 RATIO (10-20); Calcium,Total 9.1 mg/dL (8.5-10.1); Chloride 110 mmol/L (98-107); Creatinine, Serum 0.66 mg/dL (0.55-1.02); EST Glomerular Filtration Rate 107 mL/min (>60); Est Glom Filt Rate - Afr Amer 129 mL/min (>60); Globulin 3.4 g/dL (2.2-4.2); Glucose 80 mg/dL (74-106); Potassium 4.1 mmol/L (3.5-5.1); Protein, Total 6.4 g/dL (6.4-8.2); Sodium Level 141 mmol/L (136-145)
[2023-05-28 14:24] LABS: Protein, Urine (Random) < 6.0 mg/dL (<11.9)
== END | disposition home or self-care (01) ==
LOC: LAB 09:37
PROVIDERS: Nurse Practitioner Women's Health; Referring Provider Obstetrics & Gynecology; Visit Provider Obstetrics & Gynecology
DX: O09.299 Supervision of pregnancy with other poor reproductive or obstetric history, unspecified trimester (principal); Z3A.00 Weeks of gestation of pregnancy not specified
CPT/HCPCS: 36415; 80053; 82570; 84156; 85025

== ENCOUNTER → 2023-06-04 | Outpatient (CLI) | payer MEDICAID, SELFPAY ==
[2023-06-04 10:28] LABS: Absolute Lymphocyte Count 4.74 X10^3/uL (0.83-4.51); Absolute Neutrophil Count 6.1 X10^3/uL (2.0-7.7); Basophil# 0.03 X10^3/uL; Basophil% 0.3 % (0-1); Eosinophil# 0.12 X10^3/uL; Hemoglobin 10.7 g/dL (12.0-15.0); Lymphocyte # 4.74 X10^3/ul (0.83-4.51); Lymphocyte % 40.5 % (19-41); Mean Corp Hgb Conc 31.5 g/dL (32-36); Mean Corpuscular Hgb 30.1 pg (27.0-32.0); Mean Corpuscular Volume 95.5 fL (81-99); Mean Platelet Vol. 11.7 fl (6.2-12.0); Monocyte# 0.67 X10^3/uL; Monocyte% 5.7 % (0-10); NRBC Flagged by Analyzer 0 % (0-5); Neutrophil # 6.06 X10^3/uL (2.7-7.7); Neutrophil % 51.9 % (47-70); POSITIVE MORPHOLOGY YES; Platelet Count 206 K/mm3 (150-450); RBC Distribution Width CV 13.7 % (11.6-14.6); RBC Distribution Width SD 48.2 fl (35.1-43.9); Red Blood Count 3.56 M/mm3 (4.2-5.4); White Blood Count 11.7 K/mm3 (4.4-11.0)
[2023-06-04 10:45] LABS: Differential Indicated SCAN CRITERIA MET
[2023-06-04 10:51] LABS: Creatinine, Urine (random) < 13.00 mg/dL (NO RANGE EST.); Protein, Urine (Random) < 6.0 mg/dL (<11.9)
[2023-06-04 10:52] LABS: Platelet Estimate ADEQUATE (ADEQ); Red Cell Morphology NORM C+C NORMAL (NORM C&C)
[2023-06-04 11:04] LABS: ALB/GLOB Ratio 0.9 RATIO (0.9-2.4); AST(SGOT) 11 U/L (15-37); Alanine Aminotransfer ALT/SGPT 13 U/L (13-56); Albumin, Serum 3.1 g/dL (3.2-5.0); Alkaline Phosphatase 50 U/L (45-117); Anion Gap 5 (5-15); BUN 9 mg/dL (7-18); BUN/Creat Ratio 13.1 RATIO (10-20); Calcium,Total 9.4 mg/dL (8.5-10.1); Chloride 109 mmol/L (98-107); Creatinine, Serum 0.69 mg/dL (0.55-1.02); EST Glomerular Filtration Rate 101 mL/min (>60); Est Glom Filt Rate - Afr Amer 122 mL/min (>60); Globulin 3.3 g/dL (2.2-4.2); Glucose 89 mg/dL (74-106); Potassium 4.4 mmol/L (3.5-5.1); Protein, Total 6.4 g/dL (6.4-8.2); Sodium Level 139 mmol/L (136-145)
== END | disposition home or self-care (01) ==
LOC: LAB 10:01
PROVIDERS: Referring Provider Obstetrics & Gynecology; Visit Provider Obstetrics & Gynecology
DX: O12.10 Gestational proteinuria, unspecified trimester (principal); Z3A.18 18 weeks gestation of pregnancy
CPT/HCPCS: 36415; 80053; 82570; 84156; 85025

== ENCOUNTER → 2023-06-11 | Outpatient (CLI) | payer MEDICAID, SELFPAY ==
--- OUTSIDE RECORDS SUMMARY | 2023-06-11 11:12 | XMS RPT_ITS | CCD ---
Author Name Unknown Address [address] [place] [address] Organization [facility] Care Team Providers Care Director Index Name Role Phone No, Physician Unavailable Unavailable Milton Eid Unavailable Unavailable Milton Eid Unavailable Unavailable Parth Rivera Unavailable Unavailable Parth Rivera Unavailable Unavailable No Doctor Assigned, Nodr Unavailable Unavail able JACQUIE AMADOR Unavailable Unavailable MARJORIEJACQUIE Unavailable Unavailable JACQUIE AMADOR Unavailable Unavailable Unavailable Primary Care Provider Unavailabl e No, Physician Primary Care Provider UnavailANTONIA Soriano Admitting Unavailabl ANTONIA Velez Attending Unavailable ANTONIA MENJIVAR Referring Unavailabl e NIGEL, PHYSICIAN Primary Care Unavailable ANTONIA SHARMA Attending Unavailable NO, PHYSICIAN Primary Care Unavailable NIGEL, PHYSICIAN Primary Care Unavailable MILTON EID Admitting UnavailOANH Ellis Attending Unavailable YIN CABRAL Referring Unavailable NO PRIMARY CAREMD Primary Care Unavailable YIN CABRAL Referring Unavailable NO PRIMARY CARE, Primary Care Unavailable ANDREWS JUNIOR Attending Unavailable Medications Current [...] 11:03-0400 BMI (Body Mass Index) 30.9 kg/m2 Antonialawrence Sharma [facility] 01-12-2020 11:03-0400 Body weight 81.65 kg Antonia Tom [facility] 01-12-2020 11:03-0400 BP Diastolic 72 mm[Hg] Antonia Sharma [facility] 01-12-2020 11:03-0400 BP Systolic 107 mm[Hg] Antonia Sharma [facility] 01-12-2020 11:03-0400 Pulse (Heart Rate) 88 /min [facility]2020 11:03-0400 Pulse Oximetry 97 % Antonia Sharma [facility] 12-08-2019 09:08-0400 BMI (Body Mass Index) 29.08 kg/m2 Antonia Sharma [facility] 12-08-2019 09:08-0400 Body weight 76.84 kg Antonia Sharma [facility] 12-08-2019 09:08-0400 BP Diastolic 71 mm[Hg] Antonia Sharma [facility] 12-08-2019 09:08-0400 BP Systolic 108 mm[Hg] Antonia Sharma [facility] 12-08-2019 09:08-0400 Height 162.6 cm Antonia Sharma [facility] 12-08-2019 09:08-0400 Pulse (Heart Rate) 84 /min Antonia Sharma [facility] 12-08-2019 09:08-0400 Pulse Oximetry 98 % Antonia Sharma [facility] 07-01-2019 14:02-0400 BMI (Body Mass Index) 24.48 kg/m2 Sal Meghan Ont Fang Nurse [facility] 07-01-2019 14:02-0400 Body weight 62.69 kg Sal Meghan Ont Fang Nurse [facility] 07-01-2019 14:02-0400 BP Diastolic 72 mm[Hg] Sal Meghan Ont Fang Nurse [facility] 07-01-2019 14:02-0400 BP Systolic 119 mm[Hg] Sal Meghan Ont Fang Nurse [facility] 07-01-2019 14:02-0400 Height 160 cm Sal Meghan Ont Fang Nurse [facility] 07-01-2019 14:02-0400 Pulse (Heart Rate) 78 /min Sal Meghan Ont Fang Nurse [facility] Encounters Encounter Date Encounter Type Care Provider Facility Start: 05-31-2023 End: 05-31-2023 ambulatory OANH DAWSON [facility] Start: 05-24-2023 End: 05-24-2023 ambulatory YIN CABRAL [facility] Start: 03-15-2022 End: 03-19-2022 ambulatory PHYSICIAN [facility] Start: 01-12-2020 End: 01-12-2020 Patient encounter procedure ANTONIA DENISA SHARMA [facility] Ambulatory Start: 01-12-2020 End: 01-12-2020 Office outpatient visit 25 minutes Antonia Denisa Tom Work Phone: [facility] Procedures Date Procedure Procedure Detail Performing Clinician Start: 12-12-2019 Echocardiography Antonia Denisa Sharma Work Phone: Start: 12-08-2019 12 lead ECG Antonia Erum Sharma Work Phone: Start: 07-01-2019 Narrative [Interpretation] Study observation general US Gwendoline Fang Work Phone: Start: 07-01-2019 Culture bacterial qu anttative colony count urine Gwendoline Fang Work Phone: Start: 07-01-2019 Urine drug screening Gw endoline Fang Work Phone: Start: 06-25-2019 Antibody screen Plan of Treatment Date Care Activity Detail Author Start: 02-09-2020 End: 02-09-2020 Office Visit 02/09/2020 Office Visit Cardiology Antonia Sharma MD [address] [place] [address] [phone] [facility] Start: 01-12-2020 End: 01-12-2020 Office Visit 01/12/2020 Office Visit Cardiology Antonia Sharma MD [address] [place] [address] [phone] [facility] Start: 12-16-2019 Influenza vaccination given Sequential Influenza Vaccine (#1) [facility] Start: 12-12-2019 End: 12-12-2019 Appointment 12/12/2019 Appointment Cardiology Antonia Sharma MD [address] [place] [address] [phone] [facility] Start: 12-08-2019 End: 02-06-2021 Echocardiography Echocardiogram complete Echocardiography Routine Personal history of other diseases of circulatory system Supervision Of High Risk , Unspecified, Unspecified Trimester Edema, Unspecified Type Expected: 12/08/2019, Expires: 02/06/2021 [facility] Payers Date Payer Category Payer Unknown CARESOLUANA MELENDEZ xxxxxxxxxxx 2017-Present xxxxxxxxxxx [id number] 2014 Unknown 2013 Medicaid [employer] MED[facility] [id number] 2013-Present [id number] 2013 Unknown [id number] 1984 Unknown [id number] 1984 Unknown [id number] 1984 Unknown [id number] 1984 Unknown [id number] 1984 Unknown [id number] Unknown [id number] Social History Date Type Detail Facility Start: 12-03-2015 End: 01-12-2020 Tobacco smoking status TXIS Never smoker [facility] Sex Assigned At Not on file [facility] Start: 07-01-2019 End: 01-12-2020 Alcohol intake Current non-drinker of alcohol (finding) [facility] Start: 12-08-2019 End: 01-12-2020 Tobacco use and exposure Never used [facility] Exposure to SARS-CoV -2 (event) Not sure [facility] Summary Purpose Family History No Family History Records FoundNo Family History Records FoundNo Family History Records FoundNo Family History Records FoundNo Family History Records FoundNo Family History Records FoundNo Family History Records Found Advance Directives No Advanced Directives Records FoundDocuments on File Type Date Recorded Patient Freight Associate Expl anation Advance Directives and Living Will Latest Code Status on File Code Status Date Activated Date Inactivated Comments Full Code 10/21/2014 2:46 AM 10/23/2014 5:12 PM Full Code 10/20/2014 8:34 PM 10/21/2014 2:46 AM Documents on File Type Date Recorded Patient Freight Associate Expl anation Advance Directives and Livin g Will 12/12/2019 3:45 PM Documents on File Type Date Recorded Patient Freight Associate Expl anation Advance Directives and Livin g [...] type Procedures Echocardiogram complete Antonia Sharma MD [address] [place] [address] Status Reason Specialty Diagnoses / Procedures Referre d By Contact Referred To Contact Closed Cardiology Diagnoses Personal history of other diseases of circulatory system Supervision of high risk , unspecified, unspecified trimester Edema, unspecified type Procedures Echocardiogram complete Antonia Sharma MD [address] [place] [address] Instructions * Patient Instructions* Sanam Salazar RN - 12/08/2019 9:02 AM EDT Provider: Dr. Antonia Sharma Nurse: HERLINDA Chambers, RN documented in this encounter* Patient Instructions* Joana Jha RN - 01/12/2020 11:20 AM EDT Provider: Dr. Antonia Sharma Nurse: HERLINDA Chambers, RN documented in this encounter History of Present Illness * Antonia Sharma MD - 12/08/2019 9:15 AM EDT OFFICE CONSULTATION NOTE [facility] [address] [facility] [address] [facility] [phone] Physicians: Physician No (Family); Antonia Menjivar, * (Referring) Subjective: I had the pleasure of seeing Ms. Marium Osei at the [facility] [place] office on 12/08/2019. Ms. Osei is a [...] Procedure: SECTION; Surgeon: Mallory Rosa MD; Location: [facility]; Service: SECTION, LOW TRANSVERSE TONSILECTOMY, [...] ECG (12/08/2019): Normal sinus rhythm with normal MT and QT intervals. There is no evidence [...] us for further evaluation. Antonia Sharma MD, [facility] 12/08/2019 documented in this encounter* Antonia Sharma MD - 12/12/2019 4:00 PM EDT Results acceptable, heart function appears normal and there are no significant heart valve problems. No change in previous recommendations, follow-up as scheduled. Please notify patient. documented in this encounter* Antonia Sharma MD - 01/12/2020 11:00 AM EDT OFFICE CONSULTATION NOTE [facility] [address] [facility] [address] [facility] [phone] Physicians: Physician No (Family); No ref. provider found (Referring) Subjective: I had the pleasure of seeing Ms. Marium Osei at the [facility] [place] office on 01/12/2020. Ms. Osei is a [...] Procedure: SECTION; Surgeon: Mallory Rosa MD; Location: [facility]; Service: SECTION, LOW TRANSVERSE TONSILECTOMY, [...] ECG (12/08/2019): Normal sinus rhythm with normal MT and QT intervals. There is no evidence [...] us for further evaluation. Antonia Sharma MD, [facility] 01/12/2020 documented in this encounter Additional Source Comments INFORMATION SOURCE (unrecogn ized section and content) DATE CREATED AUTHOR AUTHOR'S ORGANIZ ATION 10/04/2017 [facility] DATE CREATED AUTHOR AUTHOR'S ORGANIZ ATION 10/09/2017 [facility] DATE CREATED AUTHOR AUTHOR'S ORGANIZ ATION 07/03/2019 [facility] DATE CREATED AUTHOR AUTHOR'S ORGANIZ ATION 01/12/2020 [facility] DATE CREATED AUTHOR AUTHOR'S ORGANIZ ATION 03/19/2022 [facility] DATE CREATED AUTHOR AUTHOR'S ORGANIZ ATION 06/02/2023 [facility] Reason for Visit (unrecogniz ed section [...] 14WEEKS US OB TRANSVAGINAL/DATING Loren Rubin MD [address] [place] [address] Reason Comments Establish Care Patient is a new pat ient consult, she was ref by her OBGYN Leonid Knight for high risk . Status Reason Specialty Diagnoses / Procedures Referre d By Contact Referred To Contact Closed Cardiology Diagnoses Personal history of other diseases of circulatory system Supervision of high risk , unspecified, unspecified trimester Antonia Menjivar MD [address] [facility] [address] [place] [address] [facility] [address] [place] [address] Status Reason Specialty Diagnoses / Procedures Referre d By Contact Referred To Contact Closed Cardiology Diagnoses Personal history of other diseases of circulatory system Supervision of high risk , unspecified, unspecified trimester Edema, unspecified type Procedures Echocardiogram complete Antonia Sharma MD [address] [place] [address] Reason Comments Follow-up review echo, no othe [...] BE BASED ON THE PRIMARY CLINICAL RECORDS. [employer] provides no warranty or guarantee of the accuracy or completeness of information in this document.
[2023-06-11 11:27] LABS: Absolute Lymphocyte Count 4.26 X10^3/uL (0.83-4.51); Absolute Neutrophil Count 8.7 X10^3/uL (2.0-7.7); Basophil# 0.03 X10^3/uL; Basophil% 0.2 % (0-1); Eosinophil# 0.11 X10^3/uL; Eosinophils% 0.8 % (0-5); Hematocrit 33.3 % (37-47); Hemoglobin 10.6 g/dL (12.0-15.0); Lymphocyte # 4.26 X10^3/ul (0.83-4.51); Lymphocyte % 30.7 % (19-41); Mean Corp Hgb Conc 31.8 g/dL (32-36); Mean Corpuscular Hgb 30.4 pg (27.0-32.0); Mean Corpuscular Volume 95.4 fL (81-99); Mean Platelet Vol. 11.6 fl (6.2-12.0); Monocyte# 0.66 X10^3/uL; Monocyte% 4.8 % (0-10); NRBC Flagged by Analyzer 0 % (0-5); Neutrophil # 8.73 X10^3/uL (2.7-7.7); POSITIVE MORPHOLOGY YES; Platelet Count 205 K/mm3 (150-450); RBC Distribution Width CV 13.9 % (11.6-14.6); RBC Distribution Width SD 48.1 fl (35.1-43.9); Red Blood Count 3.49 M/mm3 (4.2-5.4); White Blood Count 13.9 K/mm3 (4.4-11.0)
[2023-06-11 11:44] LABS: Creatinine, Urine (random) < 13.00 mg/dL (NO RANGE EST.); Protein, Urine (Random) < 6.0 mg/dL (<11.9)
[2023-06-11 12:06] LABS: Differential Indicated SCAN CRITERIA MET
[2023-06-11 12:07] LABS: Differential Comment SCANNED; Reactive Lymphocyte 1+
[2023-06-11 12:10] LABS: ALB/GLOB Ratio 0.9 RATIO (0.9-2.4); AST(SGOT) 13 U/L (15-37); Alanine Aminotransfer ALT/SGPT 13 U/L (13-56); Alkaline Phosphatase 52 U/L (45-117); Anion Gap 4 (5-15); BUN 9 mg/dL (7-18); Calcium,Total 8.9 mg/dL (8.5-10.1); Chloride 108 mmol/L (98-107); Creatinine, Serum 0.64 mg/dL (0.55-1.02); EST Glomerular Filtration Rate 109 mL/min (>60); Est Glom Filt Rate - Afr Amer 132 mL/min (>60); Globulin 3.3 g/dL (2.2-4.2); Glucose 87 mg/dL (74-106); Potassium 4.3 mmol/L (3.5-5.1); Protein, Total 6.3 g/dL (6.4-8.2); Sodium Level 138 mmol/L (136-145)
== END | disposition home or self-care (01) ==
PROVIDERS: Referring Provider Obstetrics & Gynecology; Visit Provider Obstetrics & Gynecology
DX: O12.10 Gestational proteinuria, unspecified trimester (principal); Z3A.00 Weeks of gestation of pregnancy not specified
CPT/HCPCS: 36415; 80053; 82570; 84156; 85025

== ENCOUNTER → 2023-06-18 | Outpatient (CLI) | payer MEDICAID, SELFPAY ==
[2023-06-18 10:12] LABS: Absolute Lymphocyte Count 4.03 X10^3/uL (0.83-4.51); Basophil# 0.02 X10^3/uL; Basophil% 0.2 % (0-1); Eosinophil# 0.12 X10^3/uL; Hematocrit 34.2 % (37-47); Hemoglobin 10.9 g/dL (12.0-15.0); Lymphocyte # 4.03 X10^3/ul (0.83-4.51); Lymphocyte % 34.1 % (19-41); Mean Corp Hgb Conc 31.9 g/dL (32-36); Mean Corpuscular Hgb 30.5 pg (27.0-32.0); Mean Corpuscular Volume 95.8 fL (81-99); Mean Platelet Vol. 11.5 fl (6.2-12.0); Monocyte% 5.1 % (0-10); NRBC Flagged by Analyzer 0 % (0-5); Neutrophil % 59.2 % (47-70); POSITIVE MORPHOLOGY YES; Platelet Count 206 K/mm3 (150-450); RBC Distribution Width SD 49.2 fl (35.1-43.9); Red Blood Count 3.57 M/mm3 (4.2-5.4); White Blood Count 11.8 K/mm3 (4.4-11.0)
[2023-06-18 10:19] LABS: Protein, Urine (Random) < 6.0 mg/dL (<11.9)
[2023-06-18 10:40] LABS: ALB/GLOB Ratio 0.8 RATIO (0.9-2.4); AST(SGOT) 16 U/L (15-37); Alanine Aminotransfer ALT/SGPT 13 U/L (13-56); Albumin, Serum 2.9 g/dL (3.2-5.0); Alkaline Phosphatase 53 U/L (45-117); Anion Gap 4 (5-15); BUN 12 mg/dL (7-18); BUN/Creat Ratio 17.1 RATIO (10-20); Calcium,Total 8.7 mg/dL (8.5-10.1); Chloride 109 mmol/L (98-107); EST Glomerular Filtration Rate 99 mL/min (>60); Est Glom Filt Rate - Afr Amer 120 mL/min (>60); Globulin 3.5 g/dL (2.2-4.2); Glucose 89 mg/dL (74-106); Potassium 3.7 mmol/L (3.5-5.1); Protein, Total 6.4 g/dL (6.4-8.2); Sodium Level 139 mmol/L (136-145)
[2023-06-18 11:00] LABS: Differential Indicated SCAN CRITERIA MET
== END | disposition home or self-care (01) ==
PROVIDERS: Visit Provider Obstetrics & Gynecology
DX: O12.10 Gestational proteinuria, unspecified trimester (principal); I50.9 Heart failure, unspecified; G40.909 Epilepsy, unspecified, not intractable, without status epilepticus; O99.350 Diseases of the nervous system complicating pregnancy, unspecified trimester; O99.419 Diseases of the circulatory system complicating pregnancy, unspecified trimester; O09.299 Supervision of pregnancy with other poor reproductive or obstetric history, unspecified trimester; Z3A.00 Weeks of gestation of pregnancy not specified
CPT/HCPCS: 36415; 80053; 82570; 84156; 85025

== ENCOUNTER → 2023-06-26 | Outpatient (CLI) | payer MEDICAID, SELFPAY ==
--- NOTE | 2023-06-26 08:08 | ECHOD_ITS ---
Reason For Study: Heart Failure Procedure This was a 2D Doppler, Color Flow transthoracic echocardiogram. Exam performed in department. Left Ventricle Normal LV size. The estimated ejection fraction is 65 %. No evidence for diastolic dysfunction. No regional wall motion abnormalities noted. Right Ventricle Normal RV size. Normal systolic function. Atria The left atrium is mildly enlarged. Normal right atrium. No doppler evidence for ASD. Mitral Valve There is no mitral valve stenosis. Trivial mitral valve insufficiency. Tricuspid Valve There is no tricuspid stenosis. Trivial tricuspid valve insufficiency. Pulmonary artery systolic pressure is 25-30 mmHg. Aortic Valve There is no aortic stenosis. No aortic valve insufficiency. Pulmonic Valve There is no pulmonic valvular stenosis. Trivial pulmonic valve insufficiency. Great Vessels Normal aortic root. Pericardium/Pleural No pericardial effusion. MMode/2D Measurements & Calculations LVIDd: 4.4 cm IVSd: 0.89 cm Ao root diam: 3.0 cm LVIDs: 2.8 cm LVPWd: 0.76 cm LA dimension: 4.0 cm RVDd: 4.1 cm FS: 36.9 % LAV(MOD-bp): 77.6 ml LVAd ap4: 25.7 cm2 SV(MOD-sp4): 49.7 ml LAV(MOD-bp) Indexed: 45.2 ml/m2 LVLd ap4: 7.2 cm LAV(MOD-sp2): 72.9 ml EDV(MOD-sp4): 74.9 ml LAV(MOD-sp4): 71.5 ml EDV(sp4-el): 78.1 ml LVAs ap4: 13.1 cm2 LVLs ap4: 5.7 cm ESV(MOD-sp4): 25.2 ml ESV(sp4-el): 25.5 ml EF(MOD-sp4): 66.4 % EF(sp4-el): 67.4 % SV(sp4-el): 52.6 ml LA A4 area: 22.9 cm2 RA A4 area: 16.3 cm2 TAPSE: 2.5 cm Time Measurements MV dec time: 0.22 sec Doppler Measurements & Calculations MV E max duy: 81.9 cm/sec Lat Peak E' Duy: 20.4 cm/sec Med Peak E' Duy: 13.6 cm/sec MV A max duy: 62.7 cm/sec E/E' lat: 4.0 E/E' med: 6.0 MV E/A: 1.3 MV V2 max: 108.1 cm/sec MV P1/2t max duy: 109.2 cm/sec Ao V2 max: 136.8 cm/sec MV max P.7 mmHg MV P1/2t: 77.2 msec Ao max P.5 mmHg MV V2 mean: 59.6 cm/sec MV dec slope: 414.2 cm/sec2 Ao V2 mean: 93.3 cm/sec MV mean P.7 mmHg Ao mean P.0 mmHg MV V2 VTI: 29.3 cm MVA(P1/2t): 2.8 cm2 Ao V2 VTI: 30.2 cm AV (velocity ratio): 0.87 LV V1 max: 123.1 cm/sec PA V2 max: 98.5 cm/sec PI end-d duy: 89.6 cm/sec LV V1 max P.1 mmHg LV V1 mean P.1 mmHg LV V1 mean: 82.4 cm/sec LV V1 VTI: 26.3 cm TR max duy: 244.6 cm/sec TR max P.9 mmHg ECHO/Echo Complete Interpretation Summary The estimated ejection fraction is 65 %. No evidence for diastolic dysfunction. The left atrium is mildly enlarged. Trivial mitral valve insufficiency. Ordering Physician: Leslie Bowers Referring Physician: Leslie Bowers Performed By: Derek Nelson RCS
[2023-06-26 09:14] LABS: Absolute Lymphocyte Count 4.54 X10^3/uL (0.83-4.51); Absolute Neutrophil Count 6.1 X10^3/uL (2.0-7.7); Basophil# 0.03 X10^3/uL; Basophil% 0.3 % (0-1); Eosinophil# 0.15 X10^3/uL; Eosinophils% 1.3 % (0-5); Hematocrit 32.6 % (37-47); Hemoglobin 10.4 g/dL (12.0-15.0); Lymphocyte # 4.54 X10^3/ul (0.83-4.51); Lymphocyte % 39.7 % (19-41); Mean Corp Hgb Conc 31.9 g/dL (32-36); Mean Corpuscular Hgb 30.9 pg (27.0-32.0); Mean Corpuscular Volume 96.7 fL (81-99); Mean Platelet Vol. 11.9 fl (6.2-12.0); Monocyte# 0.61 X10^3/uL; Monocyte% 5.3 % (0-10); NRBC Flagged by Analyzer 0 % (0-5); Neutrophil # 6.06 X10^3/uL (2.7-7.7); POSITIVE MORPHOLOGY YES; Platelet Count 178 K/mm3 (150-450); RBC Distribution Width CV 14.1 % (11.6-14.6); RBC Distribution Width SD 49.9 fl (35.1-43.9); Red Blood Count 3.37 M/mm3 (4.2-5.4); White Blood Count 11.4 K/mm3 (4.4-11.0)
[2023-06-26 09:22] LABS: Differential Indicated SCAN CRITERIA MET
[2023-06-26 09:37] LABS: Reactive Lymphocyte 1+
[2023-06-26 10:15] LABS: HIV - WCH Non-Reactive (Nonreactive); Syphilis Antibodies Non-reactive
== END | disposition home or self-care (01) ==
PROVIDERS: Obstetrics & Gynecology; Referring Provider Obstetrics & Gynecology; Visit Provider Obstetrics & Gynecology
DX: O99.419 Diseases of the circulatory system complicating pregnancy, unspecified trimester (principal); I50.9 Heart failure, unspecified; R74.9 Abnormal serum enzyme level, unspecified; Q24.8 Other specified congenital malformations of heart; Z86.79 Personal history of other diseases of the circulatory system; Z3A.00 Weeks of gestation of pregnancy not specified; O99.891 Other specified diseases and conditions complicating pregnancy; O09.90 Supervision of high risk pregnancy, unspecified, unspecified trimester
CPT/HCPCS: 36415; 85025; 86703; 86780; 93306

== ENCOUNTER 2023-07-04 10:49 | Outpatient (RCR) | payer MEDICAID, SELFPAY ==
[2023-07-04 11:36] LABS: Absolute Lymphocyte Count 4.45 X10^3/uL (0.83-4.51); Absolute Neutrophil Count 6.3 X10^3/uL (2.0-7.7); Basophil# 0.01 X10^3/uL; Basophil% 0.1 % (0-1); Eosinophil# 0.13 X10^3/uL; Eosinophils% 1.1 % (0-5); Hematocrit 34.6 % (37-47); Hemoglobin 11.2 g/dL (12.0-15.0); Lymphocyte # 4.45 X10^3/ul (0.83-4.51); Lymphocyte % 38.3 % (19-41); Mean Corp Hgb Conc 32.4 g/dL (32-36); Mean Corpuscular Hgb 30.9 pg (27.0-32.0); Mean Corpuscular Volume 95.6 fL (81-99); Mean Platelet Vol. 11.6 fl (6.2-12.0); Monocyte# 0.65 X10^3/uL; Monocyte% 5.6 % (0-10); NRBC Flagged by Analyzer 0 % (0-5); Neutrophil # 6.31 X10^3/uL (2.7-7.7); Neutrophil % 54.3 % (47-70); POSITIVE MORPHOLOGY YES; Platelet Count 199 K/mm3 (150-450); RBC Distribution Width CV 13.9 % (11.6-14.6); RBC Distribution Width SD 48.8 fl (35.1-43.9); Red Blood Count 3.62 M/mm3 (4.2-5.4); White Blood Count 11.6 K/mm3 (4.4-11.0)
[2023-07-04 11:39] LABS: Differential Indicated SCAN CRITERIA MET
[2023-07-04 11:50] LABS: Protein, Urine (Random) < 6.0 mg/dL (<11.9)
[2023-07-04 12:03] LABS: Differential Comment SCANNED; Reactive Lymphocyte 1+
[2023-07-04 12:20] LABS: ALB/GLOB Ratio 0.8 RATIO (0.9-2.4); AST(SGOT) 14 U/L (15-37); Alanine Aminotransfer ALT/SGPT 12 U/L (13-56); Albumin, Serum 2.9 g/dL (3.2-5.0); Alkaline Phosphatase 54 U/L (45-117); Anion Gap 6 (5-15); BUN 9 mg/dL (7-18); BUN/Creat Ratio 13.4 RATIO (10-20); Calcium,Total 8.8 mg/dL (8.5-10.1); Chloride 107 mmol/L (98-107); Creatinine, Serum 0.67 mg/dL (0.55-1.02); EST Glomerular Filtration Rate 104 mL/min (>60); Est Glom Filt Rate - Afr Amer 126 mL/min (>60); Globulin 3.6 g/dL (2.2-4.2); Glucose 82 mg/dL (74-106); Potassium 4.1 mmol/L (3.5-5.1); Protein, Total 6.5 g/dL (6.4-8.2); Sodium Level 139 mmol/L (136-145)
== END 2023-07-15 01:05 | disposition home or self-care (01) ==
LOC: LAB 10:49
PROVIDERS: Referring Provider Nurse Practitioner Women's Health; Visit Provider Obstetrics & Gynecology
DX: O09.299 Supervision of pregnancy with other poor reproductive or obstetric history, unspecified trimester (principal); Z3A.00 Weeks of gestation of pregnancy not specified
CPT/HCPCS: 36415; 80053; 82570; 84156; 85025

== ENCOUNTER → 2023-07-20 | Outpatient (CLI) | payer MEDICAID, SELFPAY ==
[2023-07-20 08:36] LABS: Glucose GTT-Gestation. Fasting 86 mg/dL (<105)
[2023-07-20 08:43] LABS: Glucose GTT-Gestational 1 Hr 155 mg/dL (<190)
[2023-07-20 09:41] LABS: Glucose GTT-Gestational 2 Hr 129 mg/dL (<165)
[2023-07-20 11:03] LABS: Glucose GTT-Gestational 3 Hr 68 L (<145)
== END | disposition home or self-care (01) ==
LOC: LAB 06:50
PROVIDERS: Referring Provider Nurse Practitioner Women's Health; Visit Provider Nurse Practitioner Women's Health
DX: Z13.1 Encounter for screening for diabetes mellitus (principal)
CPT/HCPCS: 36415; 82951; 82952

== ENCOUNTER 2023-08-10 09:58 | Outpatient (RCR) | payer MEDICAID, SELFPAY ==
[2023-07-18 13:40] LABS: Absolute Lymphocyte Count 4.75 X10^3/uL (0.83-4.51); Basophil# 0.02 X10^3/uL; Basophil% 0.2 % (0-1); Eosinophil# 0.14 X10^3/uL; Eosinophils% 1.1 % (0-5); Hematocrit 34.6 % (37-47); Hemoglobin 11.3 g/dL (12.0-15.0); Lymphocyte # 4.75 X10^3/ul (0.83-4.51); Lymphocyte % 37.3 % (19-41); Mean Corp Hgb Conc 32.7 g/dL (32-36); Mean Corpuscular Hgb 31.2 pg (27.0-32.0); Mean Corpuscular Volume 95.6 fL (81-99); Mean Platelet Vol. 11.2 fl (6.2-12.0); Monocyte# 0.71 X10^3/uL; Monocyte% 5.6 % (0-10); NRBC Flagged by Analyzer 0 % (0-5); Neutrophil # 7.03 X10^3/uL (2.7-7.7); Neutrophil % 55.1 % (47-70); POSITIVE MORPHOLOGY YES; Platelet Count 185 K/mm3 (150-450); RBC Distribution Width CV 13.6 % (11.6-14.6); RBC Distribution Width SD 47.8 fl (35.1-43.9); Red Blood Count 3.62 M/mm3 (4.2-5.4); White Blood Count 12.7 K/mm3 (4.4-11.0)
[2023-07-18 13:45] LABS: Differential Indicated SCAN CRITERIA MET
[2023-07-18 14:04] LABS: ALB/GLOB Ratio 0.9 RATIO (0.9-2.4); AST(SGOT) 17 U/L (15-37); Alanine Aminotransfer ALT/SGPT 15 U/L (13-56); Alkaline Phosphatase 66 U/L (45-117); Anion Gap 2 (5-15); BUN 6 mg/dL (7-18); BUN/Creat Ratio 8.7 RATIO (10-20); Calcium,Total 8.9 mg/dL (8.5-10.1); Chloride 108 mmol/L (98-107); Creatinine, Serum 0.69 mg/dL (0.55-1.02); EST Glomerular Filtration Rate 101 mL/min (>60); Est Glom Filt Rate - Afr Amer 123 mL/min (>60); Globulin 3.3 g/dL (2.2-4.2); Glucose 146 mg/dL (74-106); Glucose Challenge Gest 1H 50g 146 mg/dL (70-140); Protein, Total 6.3 g/dL (6.4-8.2); Sodium Level 137 mmol/L (136-145)
[2023-07-18 14:05] LABS: Protein, Urine (Random) < 6.0 mg/dL (<11.9)
[2023-08-02 13:33] LABS: Absolute Lymphocyte Count 6.11 X10^3/uL (0.83-4.51); Absolute Neutrophil Count 9.4 X10^3/uL (2.0-7.7); Basophil# 0.05 X10^3/uL; Basophil% 0.3 % (0-1); Eosinophil# 0.13 X10^3/uL; Eosinophils% 0.8 % (0-5); Hematocrit 35.5 % (37-47); Hemoglobin 11.4 g/dL (12.0-15.0); Lymphocyte # 6.11 X10^3/ul (0.83-4.51); Lymphocyte % 36.5 % (19-41); Mean Corp Hgb Conc 32.1 g/dL (32-36); Mean Corpuscular Hgb 30.9 pg (27.0-32.0); Mean Corpuscular Volume 96.2 fL (81-99); Monocyte# 0.87 X10^3/uL; Monocyte% 5.2 % (0-10); NRBC Flagged by Analyzer 0 % (0-5); POSITIVE DIFFERENTIAL YES; POSITIVE MORPHOLOGY YES; Platelet Count 199 K/mm3 (150-450); RBC Distribution Width CV 13.5 % (11.6-14.6); RBC Distribution Width SD 47.7 fl (35.1-43.9); Red Blood Count 3.69 M/mm3 (4.2-5.4); White Blood Count 16.8 K/mm3 (4.4-11.0)
[2023-08-02 13:35] LABS: Differential Indicated SCAN CRITERIA MET
[2023-08-02 13:53] LABS: Atypical Lymphocyte 2+ %; Differential Comment SCANNED
[2023-08-02 14:03] LABS: ALB/GLOB Ratio 0.7 RATIO (0.9-2.4); AST(SGOT) 18 U/L (15-37); Alanine Aminotransfer ALT/SGPT 16 U/L (13-56); Albumin, Serum 2.7 g/dL (3.2-5.0); Alkaline Phosphatase 80 U/L (45-117); Anion Gap 6 (5-15); BUN 7 mg/dL (7-18); BUN/Creat Ratio 10.9 RATIO (10-20); Calcium,Total 8.8 mg/dL (8.5-10.1); Chloride 108 mmol/L (98-107); Creatinine, Serum 0.64 mg/dL (0.55-1.02); EST Glomerular Filtration Rate 109 mL/min (>60); Est Glom Filt Rate - Afr Amer 132 mL/min (>60); Globulin 3.7 g/dL (2.2-4.2); Glucose 85 mg/dL (74-106); Potassium 4.1 mmol/L (3.5-5.1); Protein, Total 6.4 g/dL (6.4-8.2); Sodium Level 138 mmol/L (136-145)
[2023-08-02 15:14] LABS: ROM Internal Control Test YES-OK TO RESULT pt. (Internal QC); ROM Patient Test Negative (Negative)
[2023-08-02 15:15] LABS: Record Kit Lot#, ROM+ K1409
[2023-08-03 16:02] LABS: Pathologist Review Reviewed
[2023-08-10 10:27] LABS: Absolute Lymphocyte Count 6.04 X10^3/uL (0.83-4.51); Absolute Neutrophil Count 7.3 X10^3/uL (2.0-7.7); Basophil# 0.04 X10^3/uL; Basophil% 0.3 % (0-1); Eosinophil# 0.11 X10^3/uL; Eosinophils% 0.8 % (0-5); Hematocrit 34.7 % (37-47); Hemoglobin 11.2 g/dL (12.0-15.0); Lymphocyte # 6.04 X10^3/ul (0.83-4.51); Lymphocyte % 41.6 % (19-41); Mean Corp Hgb Conc 32.3 g/dL (32-36); Mean Corpuscular Hgb 30.9 pg (27.0-32.0); Mean Corpuscular Volume 95.6 fL (81-99); Mean Platelet Vol. 11.4 fl (6.2-12.0); Monocyte# 0.94 X10^3/uL; Monocyte% 6.5 % (0-10); NRBC Flagged by Analyzer 0 % (0-5); Neutrophil # 7.29 X10^3/uL (2.7-7.7); Neutrophil % 50.1 % (47-70); POSITIVE DIFFERENTIAL YES; POSITIVE MORPHOLOGY YES; Platelet Count 185 K/mm3 (150-450); RBC Distribution Width CV 13.2 % (11.6-14.6); RBC Distribution Width SD 46.4 fl (35.1-43.9); Red Blood Count 3.63 M/mm3 (4.2-5.4); White Blood Count 14.5 K/mm3 (4.4-11.0)
[2023-08-10 10:29] LABS: Differential Indicated SCAN CRITERIA MET
[2023-08-10 10:51] LABS: ALB/GLOB Ratio 0.7 RATIO (0.9-2.4); AST(SGOT) 14 U/L (15-37); Alanine Aminotransfer ALT/SGPT 13 U/L (13-56); Albumin, Serum 2.6 g/dL (3.2-5.0); Alkaline Phosphatase 80 U/L (45-117); Anion Gap 4 (5-15); BUN 8 mg/dL (7-18); BUN/Creat Ratio 11.9 RATIO (10-20); Calcium,Total 8.8 mg/dL (8.5-10.1); Chloride 107 mmol/L (98-107); Creatinine, Serum 0.67 mg/dL (0.55-1.02); EST Glomerular Filtration Rate 104 mL/min (>60); Est Glom Filt Rate - Afr Amer 125 mL/min (>60); Globulin 3.5 g/dL (2.2-4.2); Glucose 97 mg/dL (74-106); Potassium 4.3 mmol/L (3.5-5.1); Protein, Total 6.1 g/dL (6.4-8.2); Sodium Level 138 mmol/L (136-145)
[2023-08-10 10:55] LABS: Protein, Urine (Random) < 6.0 mg/dL (<11.9)
[2023-08-10 11:41] LABS: Differential Comment SCANNED; Reactive Lymphocyte 1+
== END 2023-08-14 23:35 | disposition home or self-care (01) ==
LOC: LAB 09:58
PROVIDERS: Advanced Practice Midwife; Referring Provider Obstetrics & Gynecology; Visit Provider Obstetrics & Gynecology
DX: R30.0 Dysuria (principal); O26.899 Other specified pregnancy related conditions, unspecified trimester; N89.8 Other specified noninflammatory disorders of vagina; Z3A.00 Weeks of gestation of pregnancy not specified; O99.891 Other specified diseases and conditions complicating pregnancy
CPT/HCPCS: 36415; 80053; 82570; 82950; 84112; 84156; 85025; 87077; 87086; 87088; 87186

== ENCOUNTER 2023-08-23 12:47 | Outpatient (RCR) | payer MEDICAID, SELFPAY ==
[2023-08-16 12:47] LABS: Absolute Neutrophil Count 7.5 X10^3/uL (2.0-7.7); Basophil# 0.03 X10^3/uL; Basophil% 0.2 % (0-1); Eosinophil# 0.18 X10^3/uL; Eosinophils% 1.2 % (0-5); Hematocrit 34.8 % (37-47); Hemoglobin 11.3 g/dL (12.0-15.0); Lymphocyte % 40.4 % (19-41); Mean Corp Hgb Conc 32.5 g/dL (32-36); Mean Corpuscular Volume 95.3 fL (81-99); Mean Platelet Vol. 11.8 fl (6.2-12.0); Monocyte# 0.95 X10^3/uL; Monocyte% 6.5 % (0-10); NRBC Flagged by Analyzer 0 % (0-5); Neutrophil # 7.48 X10^3/uL (2.7-7.7); Neutrophil % 51.2 % (47-70); POSITIVE DIFFERENTIAL YES; POSITIVE MORPHOLOGY YES; Platelet Count 185 K/mm3 (150-450); RBC Distribution Width CV 13.1 % (11.6-14.6); RBC Distribution Width SD 45.6 fl (35.1-43.9); Red Blood Count 3.65 M/mm3 (4.2-5.4); White Blood Count 14.6 K/mm3 (4.4-11.0)
[2023-08-16 12:49] LABS: Differential Indicated SCAN CRITERIA MET
[2023-08-16 13:10] LABS: ALB/GLOB Ratio 0.8 RATIO (0.9-2.4); AST(SGOT) 19 U/L (15-37); Alanine Aminotransfer ALT/SGPT 13 U/L (13-56); Albumin, Serum 2.7 g/dL (3.2-5.0); Alkaline Phosphatase 88 U/L (45-117); Anion Gap 7 (5-15); BUN 7 mg/dL (7-18); BUN/Creat Ratio 11.4 RATIO (10-20); Calcium,Total 8.5 mg/dL (8.5-10.1); Chloride 107 mmol/L (98-107); Creatinine, Serum 0.62 mg/dL (0.55-1.02); EST Glomerular Filtration Rate 115 mL/min (>60); Est Glom Filt Rate - Afr Amer 139 mL/min (>60); Globulin 3.6 g/dL (2.2-4.2); Glucose 87 mg/dL (74-106); Potassium 3.8 mmol/L (3.5-5.1); Protein, Total 6.3 g/dL (6.4-8.2); Sodium Level 139 mmol/L (136-145)
[2023-08-16 13:12] LABS: Protein, Urine (Random) < 6.0 mg/dL (<11.9); Protein:Creat Ratio 217 mg/g CRE (0-200)
[2023-08-16 13:42] LABS: Differential Comment SCANNED
[2023-08-16 13:43] LABS: Reactive Lymphocyte 1+
[2023-08-23 13:23] LABS: Absolute Lymphocyte Count 5.74 X10^3/uL (0.83-4.51); Absolute Neutrophil Count 7.5 X10^3/uL (2.0-7.7); Basophil# 0.03 X10^3/uL; Basophil% 0.2 % (0-1); Eosinophil# 0.17 X10^3/uL; Eosinophils% 1.2 % (0-5); Hematocrit 35.2 % (37-47); Hemoglobin 11.4 g/dL (12.0-15.0); Lymphocyte # 5.74 X10^3/ul (0.83-4.51); Lymphocyte % 39.3 % (19-41); Mean Corp Hgb Conc 32.4 g/dL (32-36); Mean Corpuscular Hgb 31.3 pg (27.0-32.0); Mean Corpuscular Volume 96.7 fL (81-99); Mean Platelet Vol. 11.7 fl (6.2-12.0); Monocyte# 1.07 X10^3/uL; Monocyte% 7.3 % (0-10); NRBC Flagged by Analyzer 0 % (0-5); Neutrophil # 7.47 X10^3/uL (2.7-7.7); Neutrophil % 51.1 % (47-70); POSITIVE DIFFERENTIAL YES; POSITIVE MORPHOLOGY YES; Platelet Count 185 K/mm3 (150-450); RBC Distribution Width CV 13.1 % (11.6-14.6); RBC Distribution Width SD 46.5 fl (35.1-43.9); Red Blood Count 3.64 M/mm3 (4.2-5.4); White Blood Count 14.6 K/mm3 (4.4-11.0)
[2023-08-23 13:25] LABS: Differential Indicated SCAN CRITERIA MET
[2023-08-23 13:36] LABS: Protein, Urine (Random) < 6.0 mg/dL (<11.9)
[2023-08-23 14:01] LABS: ALB/GLOB Ratio 0.8 RATIO (0.9-2.4); AST(SGOT) 17 U/L (15-37); Alanine Aminotransfer ALT/SGPT 15 U/L (13-56); Albumin, Serum 2.7 g/dL (3.2-5.0); Alkaline Phosphatase 90 U/L (45-117); Anion Gap 4 (5-15); BUN 8 mg/dL (7-18); BUN/Creat Ratio 13.5 RATIO (10-20); Calcium,Total 8.8 mg/dL (8.5-10.1); Chloride 106 mmol/L (98-107); Creatinine, Serum 0.59 mg/dL (0.55-1.02); EST Glomerular Filtration Rate 120 mL/min (>60); Est Glom Filt Rate - Afr Amer 145 mL/min (>60); Globulin 3.4 g/dL (2.2-4.2); Glucose 102 mg/dL (74-106); Potassium 4.2 mmol/L (3.5-5.1); Protein, Total 6.1 g/dL (6.4-8.2); Sodium Level 138 mmol/L (136-145)
[2023-08-23 14:36] LABS: Reactive Lymphocyte 1+
== END 2023-09-11 18:00 | disposition home or self-care (01) ==
LOC: LAB 12:47
PROVIDERS: Referring Provider Obstetrics & Gynecology; Visit Provider Obstetrics & Gynecology
DX: O09.299 Supervision of pregnancy with other poor reproductive or obstetric history, unspecified trimester (principal); Z3A.00 Weeks of gestation of pregnancy not specified
CPT/HCPCS: 36415; 80053; 82570; 84156; 85025

== ENCOUNTER → 2023-08-28 | Outpatient (CLI) | payer MEDICAID, SELFPAY ==
--- NOTE | 2023-08-28 13:36 | US_ITS ---
STUDY: SECOND AND THIRD TRIMESTER OBSTETRICAL ULTRASOUND REASON FOR EXAM: Female, 37 years old AMA, Epilepsy -- GROWTH LMP: January 10, 2023. TECHNIQUE: Transabdominal TECHNICAL QUALITY: Adequate. PRIOR ULTRASOUND: None. FINDINGS: There is a single intrauterine fetus. The fetus is in a cephalic presentation. There is demonstrated cardiac activity with a heart rate of 144 bpm. There is a normal amniotic fluid volume. The largest amniotic fluid pocket measures 6.1 cm. The amniotic fluid index (TOM) is 17.9 cm. The placenta is anterior in location and is not low lying. There are Grade 1 placental changes. The cervix was not measured due to head position. The adnexal regions are not visualized. BIOMETRY: BPD: 7.9 cm: 31 weeks, 5 days HC: 29.4 cm: 32 weeks, 3 days AC: 29.7 cm: 33 weeks, 5 days FL: 6.4 cm: 33 weeks, 0 days CI: 76% FL/BPD: 81% FL/HC: FL/AC: 21% HC/AC: 0.99 age by current US: 32 weeks, 4 days. JOCELYNN by current US: October 19, 2023. Estimated weight: 2155 grams, +/- 323 grams, 53 %. Age by LMP: 32 weeks, 6 days. JOCELYNN by LMP: October 17, 2023. US/OB Limited With Biometrics IMPRESSION: Single live uterine gestation with a mean gestational age of 32 weeks and 4 days. Electronically Signed: Alli Parham MD at 13:53 EDT ,
== END | disposition home or self-care (01) ==
LOC: US 13:36
PROVIDERS: Referring Provider Obstetrics & Gynecology; Visit Provider Obstetrics & Gynecology
DX: O09.529 Supervision of elderly multigravida, unspecified trimester (principal); G40.909 Epilepsy, unspecified, not intractable, without status epilepticus; O99.350 Diseases of the nervous system complicating pregnancy, unspecified trimester; Z3A.00 Weeks of gestation of pregnancy not specified
CPT/HCPCS: 76816

== ENCOUNTER → 2023-09-06 | Outpatient (CLI) | payer MEDICAID, SELFPAY ==
--- NOTE | 2023-09-06 17:14 | US_ITS ---
EXAM: US BIOPHYSICAL PROFILE WITHOUT NON-STRESS TESTING CLINICAL INDICATION: WELL BEING TECHNIQUE: Real-time ultrasound of the maternal pelvis for biophysical profile evaluation with image documentation. COMPARISON: No relevant prior studies available. FINDINGS: BREATHING MOVEMENTS: Present. Score 2/2. GROSS BODY MOVEMENTS: Present. Score 2/2. TONE: Present. Score 2/2. QUALITATIVE AMNIOTIC FLUID VOLUME: TOM is 14.1 cm. HEART RATE: heart rate is 147 bpm. PRESENTATION: There is an intrauterine gestation in cephalic position. PLACENTA: Placenta is anterior. OTHER FINDINGS: Biophysical profile score is 8/8. US/Biophysical Prof W/O Non Stres IMPRESSION: Biophysical profile score 8/8. heart rate is 147 bpm. Electronically Signed: Angel Lee MD at 18:07 EDT ,
[2023-09-06 18:04] LABS: Absolute Neutrophil Count 8.5 X10^3/uL (2.0-7.7); Basophil# 0.02 X10^3/uL; Basophil% 0.1 % (0-1); Eosinophil# 0.12 X10^3/uL; Eosinophils% 0.8 % (0-5); Hematocrit 34.2 % (37-47); Hemoglobin 11.4 g/dL (12.0-15.0); Lymphocyte % 36.6 % (19-41); Mean Corp Hgb Conc 33.3 g/dL (32-36); Mean Corpuscular Hgb 31.7 pg (27.0-32.0); Mean Platelet Vol. 11.4 fl (6.2-12.0); Monocyte# 0.94 X10^3/uL; Monocyte% 6.1 % (0-10); NRBC Flagged by Analyzer 0 % (0-5); Neutrophil # 8.54 X10^3/uL (2.7-7.7); Neutrophil % 55.7 % (47-70); POSITIVE DIFFERENTIAL YES; POSITIVE MORPHOLOGY YES; Platelet Count 203 K/mm3 (150-450); RBC Distribution Width CV 12.9 % (11.6-14.6); RBC Distribution Width SD 44.5 fl (35.1-43.9); White Blood Count 15.3 K/mm3 (4.4-11.0)
[2023-09-06 18:24] LABS: Differential Indicated SCAN CRITERIA MET
[2023-09-06 18:25] LABS: Anisocytosis RARE; Atypical Lymphocyte 1+ %; Macrocytosis RARE; Platelet Estimate ADEQUATE (ADEQ); Red Cell Morphology N CHROM NORMAL (NORM C&C)
[2023-09-06 18:48] LABS: Protein:Creat Ratio 89 mg/g CRE (0-200)
[2023-09-06 18:53] LABS: ALB/GLOB Ratio 0.8 RATIO (0.9-2.4); AST(SGOT) 18 U/L (15-37); Alanine Aminotransfer ALT/SGPT 20 U/L (13-56); Albumin, Serum 2.9 g/dL (3.2-5.0); Alkaline Phosphatase 104 U/L (45-117); Anion Gap 6 (5-15); BUN 11 mg/dL (7-18); BUN/Creat Ratio 15.8 RATIO (10-20); Chloride 106 mmol/L (98-107); EST Glomerular Filtration Rate 100 mL/min (>60); Est Glom Filt Rate - Afr Amer 121 mL/min (>60); Globulin 3.5 g/dL (2.2-4.2); Glucose 97 mg/dL (74-106); Potassium 3.8 mmol/L (3.5-5.1); Protein, Total 6.4 g/dL (6.4-8.2); Sodium Level 137 mmol/L (136-145)
== END | disposition home or self-care (01) ==
PROVIDERS: Obstetrics & Gynecology; Referring Provider Nurse Practitioner Women's Health; Visit Provider Nurse Practitioner Women's Health
DX: O09.299 Supervision of pregnancy with other poor reproductive or obstetric history, unspecified trimester (principal); Z3A.00 Weeks of gestation of pregnancy not specified
CPT/HCPCS: 36415; 76819; 80053; 82570; 84156; 85025

== ENCOUNTER → 2023-09-25 | Outpatient (CLI) | payer MEDICAID, SELFPAY ==
--- NOTE | 2023-09-25 09:01 | US_ITS ---
STUDY: SECOND AND THIRD TRIMESTER OBSTETRICAL ULTRASOUND REASON FOR EXAM: Female, 38 years old growth - LMP: January 10, 2023. TECHNIQUE: Transabdominal TECHNICAL QUALITY: Adequate. PRIOR ULTRASOUND: Comparison is made with prior study dated September 06, 2023 and August 28, 2023. FINDINGS: There is a single intrauterine fetus. The fetus is in a cephalic presentation. There is demonstrated cardiac activity with a heart rate of 148 bpm. There is a normal amniotic fluid volume. The largest amniotic fluid pocket measures 7.5 cm. The amniotic fluid index (TOM) is 15.7 cm. The placenta is anterior in location and is not low lying. There are Grade 1 placental changes. The cervix was not measured due to head position.. The adnexal regions are not visualized. BIOMETRY: BPD: 8.8 cm: 35 weeks, 4 days HC: 11.26 cm: 37 weeks, 4 days AC: 32.06 cm: 36 weeks, 1 days FL: 7.01 cm: 36 weeks, 0 days CI: 78% FL/BPD: 80% FL/HC: FL/AC: 20% HC/AC: 0.92 age by current US: 36 weeks, 4 days. JOCELYNN by current US: October 19, 2023. Estimated weight: 3234 grams, +/- 485 grams, 70 %. age by prior US: 36 weeks, 4 days. JOCELYNN by prior US: October 19, 2023. Age by LMP: 36 weeks, 6 days. JOCELYNN by LMP: October 17, 2023. US/OB Limited With Biometrics IMPRESSION: Single live intrauterine gestation with mean gestational age of 36 weeks and 4 days. Electronically Signed: Alli Parham MD at 14:55 EDT ,
== END | disposition home or self-care (01) ==
LOC: US 09:01
PROVIDERS: Referring Provider Obstetrics & Gynecology; Visit Provider Obstetrics & Gynecology
DX: O28.8 Other abnormal findings on antenatal screening of mother (principal); Z3A.00 Weeks of gestation of pregnancy not specified
CPT/HCPCS: 76816

== ENCOUNTER → 2023-09-27 | Outpatient (CLI) | payer MEDICAID, SELFPAY | END | disposition home or self-care (01) | PROVIDERS: Visit Provider Obstetrics & Gynecology | DX: O09.90 Supervision of high risk pregnancy, unspecified, unspecified trimester (principal); Z3A.00 Weeks of gestation of pregnancy not specified | CPT/HCPCS: 87081 ==

== ENCOUNTER 2023-09-28 10:52 | Outpatient (RCR) | payer MEDICAID, SELFPAY ==
[2023-09-20 15:59] LABS: Absolute Lymphocyte Count 5.66 X10^3/uL (0.83-4.51); Absolute Neutrophil Count 8.2 X10^3/uL (2.0-7.7); Basophil# 0.03 X10^3/uL; Basophil% 0.2 % (0-1); Eosinophil# 0.12 X10^3/uL; Eosinophils% 0.8 % (0-5); Hematocrit 35.4 % (37-47); Hemoglobin 11.5 g/dL (12.0-15.0); Lymphocyte # 5.66 X10^3/ul (0.83-4.51); Lymphocyte % 37.3 % (19-41); Mean Corp Hgb Conc 32.5 g/dL (32-36); Mean Corpuscular Volume 95.4 fL (81-99); Mean Platelet Vol. 11.6 fl (6.2-12.0); Monocyte# 1.02 X10^3/uL; Monocyte% 6.7 % (0-10); NRBC Flagged by Analyzer 0 % (0-5); Neutrophil # 8.17 X10^3/uL (2.7-7.7); Neutrophil % 53.9 % (47-70); POSITIVE DIFFERENTIAL YES; Platelet Count 167 K/mm3 (150-450); RBC Distribution Width CV 13.5 % (11.6-14.6); RBC Distribution Width SD 47.2 fl (35.1-43.9); Red Blood Count 3.71 M/mm3 (4.2-5.4); White Blood Count 15.2 K/mm3 (4.4-11.0)
[2023-09-20 16:20] LABS: Differential Indicated SCAN CRITERIA MET
[2023-09-20 16:22] LABS: Protein, Urine (Random) 6.8 mg/dL (<11.9); Protein:Creat Ratio 294 mg/g CRE (0-200)
[2023-09-20 16:43] LABS: ALB/GLOB Ratio 0.8 RATIO (0.9-2.4); AST(SGOT) 18 U/L (15-37); Alanine Aminotransfer ALT/SGPT 16 U/L (13-56); Albumin, Serum 2.8 g/dL (3.2-5.0); Alkaline Phosphatase 115 U/L (45-117); Anion Gap 6 (5-15); BUN 10 mg/dL (7-18); BUN/Creat Ratio 13.7 RATIO (10-20); Calcium,Total 9.3 mg/dL (8.5-10.1); Chloride 106 mmol/L (98-107); Creatinine, Serum 0.73 mg/dL (0.55-1.02); EST Glomerular Filtration Rate 95 mL/min (>60); Est Glom Filt Rate - Afr Amer 114 mL/min (>60); Globulin 3.5 g/dL (2.2-4.2); Glucose 108 mg/dL (74-106); Potassium 4.2 mmol/L (3.5-5.1); Protein, Total 6.3 g/dL (6.4-8.2); Sodium Level 138 mmol/L (136-145)
[2023-09-20 18:43] LABS: Differential Comment SCANNED
[2023-09-28 11:13] LABS: Absolute Lymphocyte Count 5.59 X10^3/uL (0.83-4.51); Absolute Neutrophil Count 6.8 X10^3/uL (2.0-7.7); Basophil# 0.03 X10^3/uL; Basophil% 0.2 % (0-1); Eosinophil# 0.12 X10^3/uL; Eosinophils% 0.9 % (0-5); Hematocrit 34.1 % (37-47); Lymphocyte # 5.59 X10^3/ul (0.83-4.51); Lymphocyte % 40.2 % (19-41); Mean Corp Hgb Conc 32.3 g/dL (32-36); Mean Corpuscular Hgb 30.4 pg (27.0-32.0); Mean Corpuscular Volume 94.2 fL (81-99); Mean Platelet Vol. 11.5 fl (6.2-12.0); Monocyte# 1.17 X10^3/uL; Monocyte% 8.4 % (0-10); NRBC Flagged by Analyzer 0 % (0-5); Neutrophil # 6.79 X10^3/uL (2.7-7.7); Neutrophil % 48.9 % (47-70); POSITIVE DIFFERENTIAL YES; POSITIVE MORPHOLOGY YES; Platelet Count 178 K/mm3 (150-450); RBC Distribution Width CV 13.2 % (11.6-14.6); RBC Distribution Width SD 45.3 fl (35.1-43.9); Red Blood Count 3.62 M/mm3 (4.2-5.4); White Blood Count 13.9 K/mm3 (4.4-11.0)
[2023-09-28 11:14] LABS: Differential Indicated SCAN CRITERIA MET
[2023-09-28 11:43] LABS: Atypical Lymphocyte 1+ %
[2023-09-28 11:59] LABS: ALB/GLOB Ratio 0.7 RATIO (0.9-2.4); AST(SGOT) 19 U/L (15-37); Alanine Aminotransfer ALT/SGPT 16 U/L (13-56); Albumin, Serum 2.6 g/dL (3.2-5.0); Alkaline Phosphatase 125 U/L (45-117); Anion Gap 10 (5-15); BUN 9 mg/dL (7-18); BUN/Creat Ratio 17.3 RATIO (10-20); Calcium,Total 8.7 mg/dL (8.5-10.1); Chloride 105 mmol/L (98-107); Creatinine, Serum 0.52 mg/dL (0.55-1.02); EST Glomerular Filtration Rate 139 mL/min (>60); Est Glom Filt Rate - Afr Amer 168 mL/min (>60); Globulin 3.7 g/dL (2.2-4.2); Glucose 103 mg/dL (74-106); Potassium 3.8 mmol/L (3.5-5.1); Protein, Total 6.3 g/dL (6.4-8.2); Protein, Urine (Random) < 6.0 mg/dL (<11.9); Sodium Level 139 mmol/L (136-145)
== END 2023-09-28 18:00 | disposition home or self-care (01) ==
LOC: LAB 10:52
PROVIDERS: Referring Provider Obstetrics & Gynecology; Visit Provider Obstetrics & Gynecology
DX: O23.40 Unspecified infection of urinary tract in pregnancy, unspecified trimester (principal); Z3A.00 Weeks of gestation of pregnancy not specified
CPT/HCPCS: 36415; 80053; 82570; 84156; 85025; 87086

== ENCOUNTER 2023-10-02 14:27 | Outpatient (CLI) | payer MEDICAID, SELFPAY ==
[2023-10-02 14:39] VITALS: PULSE 89; RESP 16; TEMP 36.7; O2SAT 96
[2023-10-02 14:40] VITALS: BP 131/77; PULSE 86
[2023-10-02 14:57] VITALS: BMI 30.9
--- NOTE | 2023-10-02 15:50 | OB.TRI.HP_ITS ---
HPI - General HPI Narrative SAMMIE XAVIER, is a 38 y/o @ 37 weeks 6 days F who presents to L&D for decreased movement. She also explains that lately she has been having nightmares that wake her up feeling suffocated. She denies chest pain and as soon as she wakes up she feels better. She sometimes has to walk around her room to feel better. She denies rapid heart rate or swelling in her feet. She is worried due to a history of heart failure after her first . Maternal Data Information JOCELYNN Calculator Estimated Delivery Date Method Current WG Current Estimate 10/17/23 LMP (Certain) 37w 6d PFSH PFSH Medical History Heart failure History of pre-eclampsia in prior , currently Epilepsy Home Medications ?Medication ?Instructions ?Recorded ?Last Taken ?Type ferrous sulfate 325 mg (65 mg 325 mg PO DAILY 06/21/23 Unknown History iron) tablet (Feosol) prenat.vits,nadine,uzb-cber-qhaud tab PO 06/21/23 Unknown History Allergy/AdvReac Type Severity Reaction Status Date / Time No Known Allergies Allergy Verified 10/02/23 14:55 Family History Father Hypertension Hypothyroidism Mother Hypothyroidism Surgical History History of tonsillectomy delivery delivered Social History household members: family housing: house current occupational status: employed current occupation: [employer]- [employer] pets and animals: No history of recent travel: Yes out of state: Yes out of country: Yes sexually active: Yes Smoking Status: Never smoker alcohol intake: never substance use type: does not use caffeine: Yes what type of physical activity do you participate in: weight training frequency: 5-6 times per week nikki/mosque: Sikhism seatbelt use: always do you feel safe at home: Yes additional social history: SHARMIN- Cross fit History 6 Elective abortions 0 Hx Para 3 Spontaneous abortions 3 Hx # Term Pregnancies 3 Ectopic pregnancies Hx # Pregnancies Multiple births # of living children 3 Past Pregnancies Del. Date Name GA/Weeks Outcome Route Bth Weight Gen Labor Lgth Anesthesia Del Locatn Provider FOB Unknown 10/20/14 Kimberlee 39 live - full term C-sectio n 7lb 15.2 oz Female spinal [facility] Unknown 06/21/08 Nathan 40 live - full term 9lbs 5oz Male 9 spinal [facility] Gu[facility] Unknown 08/2007 Unknown 05/200702/01/20 Mt 40 live - full term Male [facility] Leonid Delivery Date: Last Updated by: Brielle Lundberg low transverse Delivery Date: Last Updated by: Antonia Jaquez MD NRFHTs, csection scar? Delivery Date: 02/01/20 Last Updated by: Brielle Lundberg SROM failed 6cm AOD RLTCS Visit Details Expected Delivery Route/Plan repeat c/s Plans Covid status: Flu vaccine: no Tdap vaccine: declines Rhogam: na LARC form signed: yes Problem list reviewed and updated with the most current plan of care details and appropriate orders placed. Relevant counseling for the gestational age provided. Continue routine care and follow up unless otherwise noted in visit notes/problem list details OB Flowsheet Initial Weight: 139 lb Date -?-?-?-?-?-?-?-?-?-?-?-?- EGA Weight BP Urine Prot -?-?-?-?-?-?-?-?-?-?-?-?- Glucose FHR FuHt Pres Dilation -?-?-?-?-?-?-?-?-?-?-?-?- Effaced St Visit Note 04/02/23 -?-?-?-?-?-?-?-?-?-?-?-?- 11w 5d 139 lb 8 oz (+8 oz) 121/76 -?-?-?-?-?-?-?-?-?-?-?-?- 157 -?-?-?-?-?-?-?-?-?-?-?-?- LC- CRL con with LMP. MFM referral for history of CHF x2 . hx of PEC- baseline labs ordered. c/s x3. was wanting to TOLAC, discussed our practice will be able to provide repeat c/s after 3 c/s . 05/21/23 -?-?-?-?-?-?-?-?-?-?-?-?- 18w 5d 146 lb 8 oz (+7 lb 8 oz) 112/66 Negative -?-?-?-?-?-?-?-?-?-?-?-?- Negative 148 -?-?-?-?-?-?-?-?-?-?-?-?- JV- increasing b bindu asa to full dose due to history. MFM ultrasound coming up. echo ordered. home bp monitoring ordered with laureano on L&D for more accurate bp's. recommend doc only going forward. pt complains of bad headaches and was taking aleve. importance of avoiding nsaids other than tylenol discussed. 06/21/23 -?-?-?-?-?-?-?-?-?-?-?-?- 23w 1d 151 lb (+12 lb) 108/66 Negative -?-?-?-?-?-?-?-?-?-?-?-?- Negative 150 -?-?-?-?-?-?-?-?-?-?-?-?- SM- no vb lof go od fm no regular ctx SM- no vb lof good fm no reg ular ctx get mfm consult report, echo next week 07/18/23 -?-?-?-?-?-?-?-?-?-?-?-?- 27w 0d 155 lb (+16 lb) 114/76 Negative -?-?-?-?-?-?-?-?-?-?-?-?- Negative 146 28 -?-?-?-?-?-?-?-?-?-?-?-?- MH-No VB, LOF. G ood FM. Larc. 28 wk labs pending. Declines tdap 08/02/23 -?-?-?-?-?-?-?-?-?-?-?-?- 29w 1d 162 lb 6 oz (+23 lb 6 oz) 109/67 Negative -?-?-?-?-?-?-?-?-?-?-?-?- Negative 155 29 -?-?-?-?-?-?-?-?-?-?-?-?- kw- no vb/lof/ct x. good fm. reports gush of fluid on sunday but none since. Urine cx and ROM sent .message sent to schedule c/s 08/16/23 -?-?-?-?-?-?-?-?-?-?-?-?- 31w 1d 164 lb (+25 lb) 91/57 -?-?-?-?-?-?-?-?-?-?-?-?- 140 32 -?-?-?-?-?-?-?-?-?-?-?-?- SM- no vb lof go od fm no regular ctx 08/23/23 -?-?-?-?-?-?-?-?-?-?-?-?- 32w 1d 168 lb (+29 lb) 102/67 Negative -?-?-?-?-?-?-?-?-?-?-?-?- Negative 135 -?-?-?-?-?-?-?-?-?-?-?-?- KW- nst only. re active. has R C/S scheduled 09/06/23 -?-?-?-?-?-?-?-?-?-?-?-?- 34w 1d 167 lb (+28 lb) 109/65 Negative -?-?-?-?-?-?-?-?-?-?-?-?- Negative 140 -?-?-?-?-?-?-?-?-?-?-?-?- MH-Nonreassuring NST. Reviewed by BRYANT and to US for BPP 09/13/23 -?-?-?-?-?-?-?-?-?-?-?-?- 35w 1d 172 lb (+33 lb) 99/61 Negative -?-?-?-?-?-?-?-?-?-?-?-?- Negative 140 -?-?-?-?-?-?-?-?-?-?-?-?- SM- no vb lof go od fm no regular ctx 09/20/23 -?-?-?-?-?-?-?-?-?-?-?-?- 36w 1d 174 lb (+35 lb) 107/67 -?-?-?-?-?-?-?-?-?-?-?-?- 130 -?-?-?-?-?-?-?-?-?-?-?-?- KW- NST only. re active 09/27/23 -?-?-?-?-?-?-?-?-?-?-?-?- 37w 1d 179 lb (+40 lb) 105/68 Negative -?-?-?-?-?-?-?-?-?-?-?-?- Negative 150 37 0 -?-?-?-?-?-?-?-?-?-?-?-?- Sm- no vb lof go od fm n oregular ctx gbs collected ROS Constitutional Constitutional: Reports systems reviewed and no addt'l complaints, except as documented Gastrointestinal Gastrointestinal: Denies bloating, constipation, cramping, diarrhea, nausea or vomiting Genitourinary Genitourinary: Reports other Details: Denies vaginal odor, vaginal bleeding, or vaginal discharge ; Denies difficulty urinating or flank pain Physical Exam HEENT normocephalic Resp normal respiratory effort and normal air movement no CVA tenderness Extremity normal to inspection General Extremity: edema bilateral (trace ) NST FHR Rate Baby A Baseline: 140 Variability:: Moderate Accelerations:: 15 x 15 Decelerations:: None NST Reactive:: Yes FHR Category:: Category I Assessment & Plan (1) Decreased movement: (2) History of pre-eclampsia in prior , currently : COMMENT: Regular dose aspirin daily for extensive history of CHF and pre- e. setting up home bp monitoring with laureano needs to see MFM echo ordered (3) CHF (congestive heart failure): QUALIFIERS: Heart failure type: unspecified Heart failure chronicity: unspecified Qualified Code(s): I50.9 - Heart failure, unspecified COMMENT: overall normal echo 06/2023 -see report q 4 week follow up with MFM (4) Interatrial cardiac shunt: (5) History of congestive heart failure in adulthood: COMMENT: around first delivery, questionable. s/p cardio consult and MFM consult. undiagnosed preeclampsia and then went into congestive heart failure after delivery 06/21/08 (6) AMA (advanced maternal age) multigravida 35+: QUALIFIERS: Trimester: second trimester Qualified Code(s): O09.522 - Supervision of elderly multigravida, second trimester COMMENT: NIPT obtain. growth scan at 36 weeks (7) History of delivery: COMMENT: plan RLTCS w/ SM at 39 wk. previous cs x 3, NRFHTS. AOD. RLTCS scheduled for 10/11 @ 12 with SM (8) Epilepsy: QUALIFIERS: Epilepsy type: unspecified Intractability: not intractable Status epilepticus: without status epilepticus Qualified Code(s): G40.909 - Epilepsy, unspecified, not intractable, without status epilepticus COMMENT: has been on meds in the past. she sees dr muller for this. declines meds this , last seizure august 31. encouraged close follow up (9) Supervision of high risk , antepartum: COMMENT: DOC ONLY PRR JOCELYNN 01/27/20 boy nathan Schmid SHARMIN (10) : QUALIFIERS: Weeks of gestation: 37 weeks Qualified Code(s): Z3A.37 - 37 weeks gestation of COMMENT: normal anatomy, nipt low risk declined carrier and ntd PLAN: Plan NST Reactive plan is to buy a pulse ox and take reading when/if the situation of feeling suffocated happens again and to also call us. ok to dc to home Charges/Coding Multi Select Codes Visit Charges Office Visit/Consults: 07557 OV L3 Est 20min Urinary/Genital Urinary/Genital CPT Codes: 79074-01 non-stress test Interp
== END 2023-10-02 15:45 | disposition home or self-care (01) ==
LOC: WPOUT 14:30 → WP 14:30
PROVIDERS: Referring Provider Obstetrics & Gynecology; Visit Provider Obstetrics & Gynecology
DX: O36.8130 Decreased fetal movements, third trimester, not applicable or unspecified (principal); I50.9 Heart failure, unspecified; Z3A.37 37 weeks gestation of pregnancy; O99.413 Diseases of the circulatory system complicating pregnancy, third trimester; Z79.82 Long term (current) use of aspirin; O09.523 Supervision of elderly multigravida, third trimester
CPT/HCPCS: 59025; 59050; 99212; 99221; G0378; G0463

== ENCOUNTER 2023-10-12 08:13 | Inpatient (IN) | payer MEDICAID, SELFPAY ==
[2023-10-12] VITALS (16 sets, daily range): BP systolic 93–116; BP diastolic 48–89; PULSE 73–93; RESP 16–20; TEMP 36.2–37.2; O2SAT 96–100; BMI 31.8
[2023-10-12] MEDS: Lactated Ringers 1,000 ML 999 ML IV (08:40)
--- NOTE | 2023-10-12 08:43 | HP.PCM.OB_ITS ---
HPI - General General Date of Admission: 10/12/23 HPI Narrative MARIUM XAVIER, is a 38 F who presents IAL 6 cm dilated 3 prevoius c section not a candidate for a . no vb lof admits good fm Maternal Data Information JOCELYNN Calculator Estimated Delivery Date Method Current WG Current Estimate 10/17/23 LMP (Certain) 39w 2d PFSH PFSH Medical History Heart failure History of pre-eclampsia in prior , currently Epilepsy Home Medications ?Medication ?Instructions ?Recorded ?Last Taken ?Type ferrous sulfate 325 mg (65 mg 325 mg PO DAILY anemia 06/21/23 Unknown History iron) tablet (Feosol) prenat.vits,nadine,lxr-habp-bhzmb 1 tab PO DAILY 06/21/23 Unknown History Allergy/AdvReac Type Severity Reaction Status Date / Time No Known Allergies Allergy Verified 10/12/23 09:04 Family History Father Hypertension Hypothyroidism Mother Hypothyroidism Surgical History History of tonsillectomy delivery delivered Social History household members: family housing: house current occupational status: employed current occupation: [employer] pets and animals: No history of recent travel: Yes out of state: Yes out of country: Yes sexually active: Yes Smoking Status: Former smoker alcohol intake: never substance use type: does not use caffeine: Yes what type of physical activity do you participate in: weight training frequency: 5-6 times per week nikki/scientology: Sikh seatbelt use: always do you feel safe at home: Yes additional social history: SHARMIN- Cross fit History 6 Elective abortions 0 Hx Para 3 Spontaneous abortions 3 Hx # Term Pregnancies 3 Ectopic pregnancies Hx # Pregnancies Multiple births # of living children 3 Past Pregnancies Del. Date Name GA/Weeks Outcome Route Bth Weight Infant Gen Labor Lgth Anesthesia Del Locatn Provider FOB Unknown 10/20/14 Kimberlee 39 live - full term C-sectio n 7lb 15.2 oz Female spinal [facility] Unknown 06/21/08 Nathan 40 live - full term 9lbs 5oz Male [address] Guerra Unknown 08/2007 Unknown 05/200702/01/20 Mt 40 live - full term Male [facility] Leonid Delivery Date: Last Updated by: Brielle Lundberg low transverse Delivery Date: Last Updated by: Antonia Jaquez MD NRFHTs, csection scar? Delivery Date: 02/01/20 Last Updated by: Brielle Lundberg SROM failed 6cm AOD RLTCS Visit Details Expected Delivery Route/Plan repeat c/s Plans Covid status: Flu vaccine: no Tdap vaccine: declines Rhogam: na LARC form signed: yes Problem list reviewed and updated with the most current plan of care details and appropriate orders placed. Relevant counseling for the gestational age provided. Continue routine care and follow up unless otherwise noted in visit notes/problem list details OB Flowsheet Initial Weight: 139 lb Date -?-?-?-?-?-?-?-?-?-?-?-?- EGA Weight BP Urine Prot -?-?-?-?-?-?-?-?-?-?-?-?- Glucose FHR FuHt Pres Dilation -?-?-?-?-?-?-?-?-?-?-?-?- Effaced St Visit Note 04/02/23 -?-?-?-?-?-?-?-?-?--?-?-?- 11w 5d 139 lb 8 oz (+8 oz) 121/76 -?-?-?-?-?-?-?-?-?-?-?-?- 157 -?-?-?-?-?-?-?-?-?-?-?-?- LC- CRL con with LMP. MFM referral for history of CHF x2 . hx of PEC- baseline labs ordered. c/s x3. was wanting to TOLAC, discussed our practice will be able to provide repeat c/s after 3 c/s . 05/21/23 -?-?-?-?-?-?-?-?-?-?-?-?- 18w 5d 146 lb 8 oz (+7 lb 8 oz) 112/66 Negative -?-?-?-?-?-?-?-?-?-?-?-?- Negative 148 -?-?-?-?-?-?-?-?-?-?-?-?- JV- increasing b bindu asa to full dose due to history. MFM ultrasound coming up. echo ordered. home bp monitoring ordered with laureano on L&D for more accurate b p's. recommend doc only going forward. pt complains of bad headaches and was taking aleve. importance of avoiding nsaids other than tylenol discussed. 06/21/23 -?-?-?-?-?-?-?-?-?-?-?-?- 23w 1d 151 lb (+12 lb) 108/66 Negative -?-?-?-?-?-?-?-?-?-?-?-?- Negative 150 -?-?-?-?-?-?-?-?-?-?-?-?- SM- no vb lof go od fm no regular ctx SM- no vb lof good fm no reg ular ctx get mfm consult report, echo next week 07/18/23 -?-?-?-?-?-?-?-?-?-?-?-?- 27w 0d 155 lb (+16 lb) 114/76 Negative -?-?-?-?-?-?-?-?-?-?-?-?- Negative 146 28 -?-?-?-?-?-?-?-?-?-?-?-?- MH-No VB, LOF. G ood FM. Lar. 28 wk labs pending. Declines tdap 08/02/23 -?-?-?-?-?-?-?-?-?-?-?-?- 29w 1d 162 lb 6 oz (+23 lb 6 oz) 109/67 Negative -?-?-?-?-?-?-?-?-?-?-?-?- Negative 155 29 -?-?-?-?-?-?-?-?-?-?-?-?- kw- no vb/lof/ct x. good fm. reports gush of fluid on sunday but none since. Urine cx and ROM sent .message sent to schedule c/s 08/16/23 -?-?-?-?-?-?-?-?-?-?-?-?- 31w 1d 164 lb (+25 lb) 91/57 -?-?-?-?-?-?-?-?-?-?-?-?- 140 32 -?-?-?-?-?-?-?-?-?-?-?-?- - no vb lof go od fm no regular ctx 08/23/23 -?-?-?-?-?-?-?-?-?-?-?-?- 32w 1d 168 lb (+29 lb) 102/67 Negative -?-?-?-?-?-?-?-?-?--?-?-?- Negative 135 -?-?-?-?-?-?-?-?-?-?-?-?- KW- nst only. re active. has R C/S scheduled 09/06/23 -?-?-?-?-?-?-?-?-?-?-?-?- 34w 1d 167 lb (+28 lb) 109/65 Negative -?-?-?-?-?-?-?-?-?-?-?-?- Negative 140 -?-?-?-?-?-?-?-?-?-?-?-?- MH-Nonreassuring NST. Reviewed by BRYANT and to US for BPP 09/13/23 -?-?-?-?-?-?-?-?-?-?-?-?- 35w 1d 172 lb (+33 lb) 99/61 Negative -?-?-?-?-?-?-?-?-?-?-?-?- Negative 140 -?-?-?-?-?-?-?-?-?-?-?-?- - no vb lof go od fm no regular ctx 09/20/23 -?-?-?-?-?-?-?-?-?-?-?-?- 36w 1d 174 lb (+35 lb) 107/67 -?-?-?-?-?-?-?-?-?-?-?-?- 130 -?-?-?-?-?-?-?-?-?-?-?-?- KW- NST only. re active 09/27/23 -?-?-?-?-?-?-?-?-?-?-?-?- 37w 1d 179 lb (+40 lb) 105/68 Negative -?-?-?-?-?-?-?-?-?-?-?-?- Negative 150 37 0 -?-?-?-?-?-?-?-?-?-?-?-?- Sm- no vb lof go od fm n oregular ctx gbs collected 10/04/23 -?-?-?-?-?-?-?-?-?-?-?-?- 38w 1d 183 lb (+44 lb) 113/76 Negative -?-?-?-?-?-?-?-?-?-?-?-?- Negative 140 -?-?-?-?-?-?-?-?-?-?-?-?- MH-Patient was s chedule NST only. Good FM. NO CTX, LOF or VB. Reactive NST. Surgical soap, folder, drink given. Will need surgical consent done with Dr Jaquez 10/11 prior to surgery. She is aware to arrive at [facility] 10AM with surgery at noon. NST FHR Rate Baby A Baseline: 140 Variability:: Moderate Accelerations:: 15 x 15 Decelerations:: None NST Reactive:: Yes FHR Category:: Category I Uterine Activity:: q3-5 ROS Constitutional Constitutional: Reports systems reviewed and no addt'l complaints, except as documented ENT HEENT: Reports systems reviewed and no addt'l complaints, except as documented Cardiovascular Cardiovascular: Reports systems reviewed and no addt'l complaints, except as documented Respiratory/Chest Respiratory/Chest: Reports systems reviewed and no addt'l complaints, except as documented Gastrointestinal Gastrointestinal: Reports systems reviewed and no addt'l complaints, except as documented and nausea; Denies abdominal pain Genitourinary Genitourinary: Reports systems reviewed and no addt'l complaints, except as documented, contractions Details: present and frequency (regular ) and movement Details: present Musculoskeletal Musculoskeletal: Reports systems reviewed and no addt'l complaints, except as documented Integumentary Integumentary: Reports as per HPI Neurologic Neurologic: Reports systems reviewed and no addt'l complaints, except as documented Endocrine Endocrinology: Reports systems reviewed and no addt'l complaints, except as documented Physical Exam Const alert, oriented x3 and healthy appearing Constitutional Narrative: uncomfortable with contractions HEENT normocephalic and moist oral mucous membranes Head and Scalp: atraumatic Neck full ROM, no lymphadenopathy, supple and thyroid normal General: trachea midline Thyroid: thyroid normal Lymph Lymphatic: no lymphadenopathy noted Chest inspection of chest normal Resp normal respiratory effort Cardio regular rate GI normal to inspection, nondistended, normoactive bowel sounds, soft to palpation and non-tender Inspection: gravid external exam normal Bimanual Exam - Vag & Uterus: uterus non-tender Manual OB Exam: estimated gestational size appropriate, presentation cephalic, dilated, effaced and station Extremity normal to inspection General Extremity: Negative for edema Skin no rashes or lesions noted Neuro deep tendon reflexes 2+ bilaterally Motor Exam: strength 5/5 throughout and clonus absent Psych mental status grossly normal Labs Labs Labs: Blood Type O POSITIVE Antibody Screen NEGATIVE Hct 35.7 % (37-47) L Hgb 11.8 g/dL (12.0-15.0) L Obstetrics Ultrasound Syphilis Total Ab Non-reactive Rubella IgG Antibody Reactive (Nonreactive) Hep Bs Antigen Non-Reactive (Nonreactive) Hepatitis C Antibody Non-Reactive (Nonreactive) Chlamydia DNA (CHRISTINA) Negative (Negative) N.gonorrhoeae DNA (CHRISTINA) Negative (Negative) HIV 1&2 Antibody Non-Reactive (Nonreactive) Glucose 1 Hr 50 gm 146 mg/dL (70-140) H Gest Glucose Tolerance MG/DL Rhogam given: No Miscellaneous Test Assessment & Plan (1) UTI (urinary tract infection) during : COMMENT: re culture in 4 weeks (2) Abnormal glucose level: COMMENT: normal 3HR GTT (3) History of pre-eclampsia in prior , currently : COMMENT: Regular dose aspirin daily for extensive history of CHF and pre- e. setting up home bp monitoring with laureano needs to see MFM echo ordered (4) CHF (congestive heart failure): QUALIFIERS: Heart failure type: unspecified Heart failure chronicity: unspecified Qualified Code(s): I50.9 - Heart failure, unspecified COMMENT: overall normal echo 06/2023 -see report q 4 week follow up with MFM (5) History of congestive heart failure in adulthood: COMMENT: around first delivery, questionable. s/p cardio consult and MFM consult. undiagnosed preeclampsia and then went into congestive heart failure after delivery 06/21/08 (6) AMA (advanced maternal age) multigravida 35+: QUALIFIERS: Trimester: third trimester Qualified Code(s): O09.523 - Supervision of elderly multigravida, third trimester COMMENT: NIPT obtain. growth scan at 36 weeks (7) History of delivery: COMMENT: plan RLTCS w/ SM at 39 wk. previous cs x 3, NRFHTS. AOD. RLTCS scheduled for 10/11 @ 12 with SM (8) Epilepsy: QUALIFIERS: Epilepsy type: unspecified Intractability: not intractable Status epilepticus: without status epilepticus Qualified Code(s): G40.909 - Epilepsy, unspecified, not intractable, without status epilepticus COMMENT: has been on meds in the past. she sees dr muller for this. declines meds this , last seizure august 31. encouraged close follow up (9) Supervision of high risk , antepartum: COMMENT: DOC ONLY PRR JOCELYNN 01/27/20 boy nathan Schmid SHARMIN (10) : QUALIFIERS: Weeks of gestation: 38 weeks Qualified Code(s): Z3A.38 - 38 weeks gestation of COMMENT: normal anatomy, nipt low risk declined carrier and ntd (11) Active labor at term: PLAN: Plan admit for RLTCS
[2023-10-12] MEDS: Sodium Citrate/Citric Acid 30 ML UDC PO (08:50)
[2023-10-12] MEDS: Acetaminophen 500 MG Tablet 1000 MG PO ×3 (08:50→20:50)
[2023-10-12 09:10] LABS: Absolute Lymphocyte Count 5.01 X10^3/uL (0.83-4.51); Absolute Neutrophil Count 15.9 X10^3/uL (2.0-7.7); Basophil# 0.05 X10^3/uL; Basophil% 0.2 % (0-1); Hematocrit 35.7 % (37-47); Hemoglobin 11.8 g/dL (12.0-15.0); Lymphocyte # 5.01 X10^3/ul (0.83-4.51); Lymphocyte % 22.4 % (19-41); Mean Corp Hgb Conc 33.1 g/dL (32-36); Mean Corpuscular Hgb 30.6 pg (27.0-32.0); Mean Corpuscular Volume 92.5 fL (81-99); Mean Platelet Vol. 12.2 fl (6.2-12.0); Monocyte# 1.22 X10^3/uL; Monocyte% 5.5 % (0-10); NRBC Flagged by Analyzer 0 % (0-5); Neutrophil # 15.91 X10^3/uL (2.7-7.7); Neutrophil % 71.1 % (47-70); POSITIVE DIFFERENTIAL YES; POSITIVE MORPHOLOGY YES; Platelet Count 181 K/mm3 (150-450); RBC Distribution Width CV 13.7 % (11.6-14.6); Red Blood Count 3.86 M/mm3 (4.2-5.4); White Blood Count 22.4 K/mm3 (4.4-11.0)
[2023-10-12] MEDS: Cefazolin 2 GM in 0.9% Normal Saline (100mL Bag) 100 ML IV (09:13)
[2023-10-12 09:23] LABS: Differential Indicated SCAN CRITERIA MET
--- NOTE | 2023-10-12 09:25 | OP.PCM_ITS ---
Assessment & Plan (1) delivery delivered: COMMENT: SM RLTCS IAL 39 boy tree (2) Active labor at term: Maternal Data Information JOCELYNN Calculator Estimated Delivery Date Method Current WG Current Estimate 10/17/23 LMP (Certain) 39w 2d Final JOCELYNN Source: LMP Details Operative Information Date of Procedure: 10/12/23 Pre-Operative Diagnosis: Previous Post-Operative Diagnosis: same Indications for : Repeat Elective Indications Narrative: Surgeon: Antonia Jaquez MD Classification: Scheduled Procedure Type: low transverse train examiner #2: Rach Muhammad Type of Anesthesia: Spinal Special Medications: none Antibiotic Given: Ancef 2 grams IV x1 Drain: Gandhi to straight drain Estimated Blood Loss: 800 Fluids Replaced: crystalloid Procedure Start Time: 09:33 Procedure Stop Time: 10:10 Findings Description of Procedure: Spinal anesthesia was placed without difficulty. Gandhi catheter was placed. The patient was placed in the dorsal supine position with leftward tilt. Patient was prepped and draped in the normal sterile fashion. Pfannenstiel skin incision was made with the scalpel and carried through to the underlying layer of fascia with the scalpel. Fascia was nicked in the midline and the incision extended laterally. The rectus bellies were dissected off superiorly and inferiorly with out complication both sharply and bluntly. The peritoneum was entered digitally. The incision was stretched and a low transverse uterine incision was made with the scalpel. The infant's head was delivered atraumatically followed by the anterior and posterior shoulders without complication the rest of the infant delivered. The cord was clamped and cut and the was handed off to awaiting nurse. The placenta was delivered spontaneously immediately following and was noted to be intact and have a three- vessel cord. The uterus was exteriorized cleared of all clots and debris, and the incision was closed in a singlelayer closure using #1 Monocryl. The ovaries and fallopian tubes were noted to be within normal limits. The uterus was returned to the maternal abdomen and gutters were cleared of all clots and debris. The peritoneum was closed with 3-0 Monocryl in a running fashion. Fascia was closed with 0 PDS in a running fashion. Subcutaneous tissue was copiously irrigated and the skin was closed with 3-0 Monocryl in a subcuticular fashion. Mepilex dressing was applied without complication. Patient was taken to recovery in stable condition. Amniotic Membrane Rupture Type: Artificial Amniotic Fluid Description: Clear Placenta Disposition: [facility] Cord Vessel Description: 3 Vessels Delayed Cord Clamping: Yes Complications Risks of Surgery Discussed w/Patient: Bleeding, Infection, Need for Future C- Sections and Injury to surrounding structure(s) including bowel and bladder Vaginal Delivery Complication Complications: None Admit VTE Documentation VTE Present on Admission: No VTE Mechan Device Prophylaxis: SCD's Procedures Urinary/Genital 52xxx-[id number]: 41122 delivery+PP Care([facility])
--- NOTE | 2023-10-12 09:26 | DCINST_ITS ---
Discharge Instructions Diet Discharge Diet: No restrictions Activity Discharge Activity: May Not Drive (for 2 weeks or while taking narcotic pain medications.), May Shower and May Take a Tub Bath (in 7 days) May shower in (days): 0 May resume sexual activity in: 4-6 weeks Weight Bearing Status: Full weight bearing Lifting Restrictions: 20 pounds Dressing / Incision Call your doctor if your incision/area has: Continuous Slow Oozing, Sudden Increased Bleeding, Increased Pain/ Swelling, Increased Redness and Foul Smelling Discharge Call your doctor if you observe: Fever of 101 or Higher and Using more than 1 pad per hour (for 2 hours) Suture Line Care: Avoid Pulling/Pushing and Avoid Pinching/Bending Cleanse incision/area with: Soap & Water and Keep Dressing Clean & Dry Follow Up Care Please Follow Up With: Antonia Jaquez MD When: Call [phone] to make an appointment for an incision check in 1-2 weeks. Test Results: Test results from this visit will be discussed in further detail at your follow- up appointment, if applicable. Discharge Plan Admission Admit Date/Time: 10/12/23 08:13 Attending Provider: Antonia Jaquez Primary Care Provider: Care PhysicianBeata Primary Discharge Orders/Prescriptions Prescriptions: New oxycodone-acetaminophen [Percocet] 5-325 mg tablet 1 tab PO Q6H PRN (Reason: pain) 7 Days Qty: 20 0RF naproxen 500 mg tablet 500 mg PO BID PRN PRN (Reason: Pain) Qty: 30 1RF No Action ferrous sulfate [Feosol] 325 mg (65 mg iron) tablet 325 mg PO DAILY prenat.vits,nadine,itq-ryee-ocytf Tablet 1 tab PO DAILY Referrals / Follow Up: Care Physician,Beata Primary [Primary Care Provider] - Disposition Disposition (needs filled in before D/C Order can be placed): Home, Self Care
[2023-10-12 09:56] LABS: Syphilis Antibodies Non-reactive
[2023-10-12] MEDS: Oxytocin 15 Units/NS 250ml 15 UNITS/250 ML IV.SOLN 83 UNITS IV (10:40)
[2023-10-12 10:42] LABS: Differential Comment SCANNED
[2023-10-12] MEDS: Ketorolac 30 MG/ML Syringe IV ×3 (11:51→23:55)
[2023-10-12] MEDS: Lactated Ringers 1,000 ML 100 ML IV (13:52)
[2023-10-12] MEDS: 0.9% Saline Lock 10 ML Syringe IV ×2 (17:55→23:55)
[2023-10-13] MEDS: Acetaminophen 500 MG Tablet 1000 MG PO ×2 (03:42→09:42)
[2023-10-13 03:45] VITALS: BP 90/56; PULSE 82; RESP 16; TEMP 36.4; O2SAT 96
[2023-10-13] MEDS: Naproxen 500 MG Tablet PO ×2 (05:30→14:14)
[2023-10-13 05:41] LABS: Hematocrit 29.4 % (37-47); Hemoglobin 9.7 g/dL (12.0-15.0); Mean Corpuscular Hgb 30.8 pg (27.0-32.0); Mean Corpuscular Volume 93.3 fL (81-99); Mean Platelet Vol. 11.4 fl (6.2-12.0); Platelet Count 167 K/mm3 (150-450); RBC Distribution Width CV 13.9 % (11.6-14.6); RBC Distribution Width SD 46.9 fl (35.1-43.9); Red Blood Count 3.15 M/mm3 (4.2-5.4); White Blood Count 21.9 K/mm3 (4.4-11.0)
--- NOTE | 2023-10-13 07:14 | PCM.PN.OB ---
Subjective Subjective Patient doing well without complaints. Tolerating PO. Ambulating and voiding without difficulty. feeding well. Denies chest pain, shortness of breath, calf pain/swelling, fevers, chills, lightheadedness. Objective Data Objective Data Vital Signs: Vital Signs Temp Pulse Resp BP Pulse Ox O2 Del Method 97.5 F L 82 16 90/56 L 96 Room Air 10/13/23 03:45 10/13/23 03:45 10/13/23 03:45 10/13/23 03:45 10/13/23 03:45 10/13/23 03:45 Oxygen Delivery Method Room Air Weight: 185 lb 6 oz Body Mass Index (BMI) 31.8 Intake & Output: Intake and Output for Last 24 Hours 10/11/23 10/12/23 10/13/23 23:59 23:59 23:59 Intake Total 1841.67 / 1841.67 Output Total 2250 / 2250 1100 / 1100 Balance -408.33 / -408.33 -1100 / -1100 Lab / Micro Data 10/13/23 05:33 Labs: Laboratory Results - last 24 hr 10/12/23 08:40: WBC 22.4 H, RBC 3.86 L, Hgb 11.8 L, Hct 35.7 L, MCV 92.5, MCH 30.6, MCHC 33.1, RDW Std Deviation 46.0 H, RDW Coeff of Camilo 13.7, Plt Count 181, MPV 12.2 H, Immature Gran % (Auto) 0.800, Neut % (Auto) 71.1 H, Lymph % (Auto) 22.4, Gaines % (Auto) 5.5, Eos % (Auto) 0.0, Baso % (Auto) 0.2, Absolute Neuts (auto) 15.9 H, Absolute Lymphs (auto) 5.01 H, Nucleated RBC % 0, Differential Comment SCANNED, Syphilis Total Ab Non-reactive, Blood Type O POSITIVE, Antibody Screen NEGATIVE 10/13/23 05:33: WBC 21.9 H, RBC 3.15 L, Hgb 9.7 L, Hct 29.4 L, MCV 93.3, MCH 30.8, MCHC 33.0, RDW Std Deviation 46.9 H, RDW Coeff of Camilo 13.9, Plt Count 167, MPV 11.4 ROS Constitutional Constitutional: Reports systems reviewed and no addt'l complaints, except as documented Cardiovascular Cardiovascular: Reports systems reviewed and no addt'l complaints, except as documented Respiratory/Chest Respiratory/Chest: Reports systems reviewed and no addt'l complaints, except as documented Gastrointestinal Gastrointestinal: Reports systems reviewed and no addt'l complaints, except as documented Physical Exam Const alert, oriented x3 and no apparent distress HEENT Head and Scalp: atraumatic Resp normal respiratory effort GI soft to palpation and non-tender Inspection: incision intact, healing well and drainage (none) Bimanual Exam - Vag & Uterus: uterus non-tender Uterus Palpation: uterus fundus firm (below Umbilicus) Assessment & Plan (1) delivery delivered: COMMENT: RLTCS IAL 39 boy mordicai PLAN: Plan s/p LTCS PPD # 1 1. routine post care 2. breast feeding- support given 3. rh positive 4. rubella immune
--- NOTE | 2023-10-13 09:01 | CASEMGMT ---
Social Work Brief assessment--labor and delivery unit Date/Time of referral: 10/12/23 8:53am Reason for referral: Father of mother of baby is an alcoholic Date/Time of intervention: 10/13/23, 8:45am History obtained from: MOB and FOB Household composition: MOB and FOB staying with MOB's mother and stepfather, and their now 4 children, ages 15, 9, 3 and 1 day. Medical History: MOB: UTI during , abnormal glucose, history of pre-eclampsia, CHF, history of prior , epilepsy. Baby: Baby Tiffanie born 10/[birth year]/23 9:41am, Apgars 8 and 9 at one and five minutes, weight at 3.895 kg Supplies: They have all needed supplies for baby including diapers, wipes, crib/bassinet, car seat, clothing Financial: No concerns. 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 They were in [facility] and [place], returned recently. Support Systems: MOB's family, they are staying w/her mother and step father. She also has 5 siblings who live locally. FOB's family lives in [place], they are supportive. Behavioral Health Issues: None reported by FOB or MOB for either. Substance abuse: No history for FOB or MOB. No tox screens completed. As per MOB, her father has an alcohol abuse issue. He did not raise her, her stepfather did with her mother. MOB states she is in communication w/her father, sees him occasionally. She states she loves her father. She states his alcohol issues have no impact on their day to day Life. Depression/Anxiety/Help Me Grow: SW gave MOB and FOB information on depression and reviewed it with her. SW also gave them information on Help Me Grow/ MOB has never experiences PPD, SW did review this with them regardless, explaining that any mom can have , even if never experiencing prior. SW advised if having symptoms to speak with the PCP or [facility] REPRINT OPERATOR. MOB and FOB state understanding. Assessment: MOB and FOB communicative, answered all questions, appropriate. MOB holding baby and very appropriate w/care. No concerns.. Plan: Baby to go home w/MOB and FOB, no further social service needs at this time. ASHISH Felton
[2023-10-13 09:30] VITALS: BP 104/68; PULSE 82; RESP 16; TEMP 36.4; O2SAT 99
[2023-10-13] MEDS: Senna/Docusate Sodium 1 Tablet PO (09:42)
[2023-10-13 14:00] VITALS: BP 103/67; PULSE 85; RESP 16; TEMP 36.5; O2SAT 95
== END 2023-10-13 15:00 | disposition home or self-care (01) | DRG 540 ==
PROVIDERS: Admitting Provider Obstetrics & Gynecology; Visit Provider Obstetrics & Gynecology
PROC: 10D00Z1 Extraction of Products of Conception, Low, Open Approach (ICD-10-PCS; CPT 59514; principal; 2023-10-12 11:45)
DX: O34.211 Maternal care for low transverse scar from previous cesarean delivery (principal); O99.354 Diseases of the nervous system complicating childbirth; G40.909 Epilepsy, unspecified, not intractable, without status epilepticus; Z37.0 Single live birth; Z3A.38 38 weeks gestation of pregnancy; Z87.891 Personal history of nicotine dependence
CPT/HCPCS: 59025; 59050; 85025; 85027; 86780; 86850; 86900; 86901; 99221; J7120; A4216; G0378; J2405

== ENCOUNTER → 2023-11-20 | Outpatient (CLI) | payer MEDICAID, SELFPAY ==
[2023-11-20 15:45] LABS: Absolute Lymphocyte Count 5.45 X10^3/uL (0.83-4.51); Absolute Neutrophil Count 7.4 X10^3/uL (2.0-7.7); Basophil# 0.03 X10^3/uL; Basophil% 0.2 % (0-1); Eosinophils% 2.1 % (0-5); Hemoglobin 13.1 g/dL (12.0-15.0); Lymphocyte # 5.45 X10^3/ul (0.83-4.51); Mean Corp Hgb Conc 32.8 g/dL (32-36); Mean Corpuscular Hgb 30.6 pg (27.0-32.0); Mean Corpuscular Volume 93.5 fL (81-99); Mean Platelet Vol. 10.6 fl (6.2-12.0); Monocyte# 0.71 X10^3/uL; Monocyte% 5.1 % (0-10); NRBC Flagged by Analyzer 0 % (0-5); Neutrophil # 7.42 X10^3/uL (2.7-7.7); Neutrophil % 53.2 % (47-70); POSITIVE DIFFERENTIAL YES; POSITIVE MORPHOLOGY YES; Platelet Count 228 K/mm3 (150-450); RBC Distribution Width CV 13.3 % (11.6-14.6); RBC Distribution Width SD 45.6 fl (35.1-43.9); Red Blood Count 4.28 M/mm3 (4.2-5.4)
[2023-11-20 15:51] LABS: Differential Indicated SCAN CRITERIA MET
[2023-11-20 16:19] LABS: Differential Comment SCANNED
== END | disposition home or self-care (01) ==
LOC: LAB 15:06
PROVIDERS: Referring Provider Nurse Practitioner Women's Health; Visit Provider Nurse Practitioner Women's Health
DX: D64.9 Anemia, unspecified (principal)
CPT/HCPCS: 36415; 85025